=== PATIENT | female | born 1930 | race Caucasian/White ===

== ENCOUNTER 2016-07-01 15:05 | Emergency (ER) | payer BC ==
[~2016-07-01] VITALS: Ht 165.1 cm; Wt 78.0 kg
[~2016-07-01 15:05] MED LIST: CALC500C70 PO; CHOL2000 PO; GLUCTAB7 PO; METO25TA3 PO; PRVC/40 PO; RIVA1.5T PO; TRIA0.1C20 TOP; TUMERIC PO
[2016-07-01 15:14] VITALS: TEMP 36.6; O2SAT 95; Ht 165.1 cm; Wt 78.0 kg
[2016-07-01] MEDS ORDERED: ONDANSETRON INJ 2 MG/ML 2 ML VIAL IV STA (15:43)
[2016-07-01] MEDS ORDERED: MoRPHine SULFATE 2 MG/ML CARP IV STA (15:43)
[2016-07-01] MEDS ORDERED: XYLOCAINE 1%/SOD BICARB 20 ML VIAL INFIL ONE (15:45)
[2016-07-01 15:52] LABS: BASO % 0.2 %; BASO ABS # 0.02 K/uL (0-0.2); COMPLETE YES; EOS % 1.6 %; HEMATOCRIT 36.9 % (37-47); IG% 0.6 %; LYMPH % 41.8 %; LYMPH ABS # 3.37 K/uL (1.2-3.4); MEAN CELL VOLUME 91.6 fL (80-100); MEAN CORPUSCULAR HEMOGLOBIN 30.8 pg (25-34); MEAN CORPUSCULAR HGB CONC 33.6 g/dl (32-36); MEAN PLATELET VOLUME 10.1 fL (7.4-10.4); MONO % 6.4 %; NEUT % 49.4 %; PLATELET COUNT 145 K/uL (130-400); RED BLOOD COUNT 4.03 M/uL (4.2-5.4); WHITE BLOOD COUNT 8.07 K/uL (4.8-10.8)
[2016-07-01 16:01] LABS: BUN/CREATININE RATIO 37.9 (10-20); CALCIUM 9.1 mg/dl (8.5-10.1); CREATININE 0.7 mg/dl (0.60-1.20); INR 1.1 (0.9-1.1); POTASSIUM 3.2 mmol/L (3.5-5.1); PROTHROMBIN TIME (PATIENT) 11.7 SECONDS (9.0-12.0)
[2016-07-01 16:11] LABS: THYROID STIMULATING HORMONE 3.31 uIu/ml (0.300-4.500)
[2016-07-01] MEDS ORDERED: METO50TA7 PO (16:22)
[2016-07-01] MEDS ORDERED: TURM500T PO (16:22)
[2016-07-01] MEDS ORDERED: LSX20 PO (16:22)
--- NOTE | 2016-07-01 16:43 | DIAGNOSTIC IMAGING REPORT ---
HEAD CT NONCONTRAST CT DOSE: HISTORY: Fall. Head injury. eval for bleed TECHNIQUE: Multiaxial CT images of the head were performed without the use of intravenous contrast. Automated exposure control was utilized for this study. Comparison: None. Findings: Small amount hemorrhage within the right maxillary sinus. There appears to be a right orbital floor fracture. The calvarium and skull base are intact. White matter hypodensity is nonspecific but suggestive of microvascular ischemic change. The ventricles and sulci demonstrate mild age-related involutional changes. There appears be a trace subdural hematoma within the right frontal parafalcine location. This is best seen on image 23 and 21. Impression: 1. Suspect a trace subdural hematoma within the right frontal parafalcine location. Follow-up head CT in 12 hours is recommended. 2. Right orbital floor fracture. Electronically signed by: Kevin Stevens M.D. 07/01/2016 4:41 PM Dictated Date/Time: 07/01/2016 4:37 PM
--- NOTE | 2016-07-01 16:47 | DIAGNOSTIC IMAGING REPORT ---
MAXILLOFACIAL CT CT DOSE: HISTORY: Fall. Right facial injury. eval for fx TECHNIQUE: Multiaxial CT images of the maxillofacial region were performed and reformatted in the coronal plane without the use of contrast. COMPARISON: Sinus CT 05/15/2007. FINDINGS: Mild right periorbital soft tissue swelling. Small of hemorrhage within the right maxillary sinus. There is a right orbital floor fracture which demonstrates 5 mm of inferior displacement. There is extraconal fat extending through the orbital floor defect. The extraocular muscles are normal in caliber. The globes and retrobulbar fat are intact. No additional fractures identified within the facial bones. IMPRESSION: Displaced right orbital floor fracture. Extraconal fat extends into the orbital floor defect. Clinical correlation recommended to assess for entrapment. Electronically signed by: Kevin Stevens M.D. 07/01/2016 4:45 PM Dictated Date/Time: 07/01/2016 4:41 PM
--- NOTE | 2016-07-01 16:48 | DIAGNOSTIC IMAGING REPORT ---
CT OF THE CERVICAL SPINE CLINICAL HISTORY: Neck pain status post trauma COMPARISON STUDY: No previous studies for comparison. CT DOSE: 1182.43 mGy.cm TECHNIQUE: CT scan of the cervical spine was performed from the skull base to the thoracic inlet. Images are reviewed in the axial, sagittal, and coronal planes. IV contrast was not administered for this examination. FINDINGS: The visualized portions of the lung apices reveal no evidence of pneumothorax. The prevertebral soft tissues are normal. No cervical spine fractures or subluxations are visualized. There is a right maxillary sinus air-fluid level. There is a right orbital floor fracture. There are multilevel degenerative changes IMPRESSION: 1. Right maxillary sinus air-fluid level. There is a right orbital floor fracture. 2. No evidence of acute cervical spine fracture or traumatic subluxation. Electronically signed by: Joseph Bennett M.D. 07/01/2016 4:46 PM Dictated Date/Time: 07/01/2016 4:42 PM
[2016-07-01] MEDS ORDERED: FENTANYL CITRATE INJ 50 MCG/1 ML 2 ML VIAL IV STA (17:35)
--- NOTE | 2016-07-01 17:37 | DIAGNOSTIC IMAGING REPORT ---
CHEST 1 VW FRONT-NOT PORTABLE HISTORY: FALL COMPARISON: None. FINDINGS: No pneumothorax. No pleural effusions. The heart is mildly enlarged. There are postoperative changes and an aortic valve prosthesis. There is diffuse interstitial thickening. Right anterior shoulder dislocation. IMPRESSION: 1. Right anterior shoulder dislocation. 2. Mild diffuse interstitial thickening and mild cardiomegaly. This favors mild interstitial pulmonary edema. Electronically signed by: Kevin Stevens M.D. 07/01/2016 5:35 PM Dictated Date/Time: 07/01/2016 5:34 PM
--- NOTE | 2016-07-01 17:39 | DIAGNOSTIC IMAGING REPORT ---
RIGHT HUMERUS MIN 2 VIEWS ROUTINE, RIGHT SHOULDER MIN 2 VIEWS ROUTINE CLINICAL HISTORY: Fall. Right shoulder and arm pain. COMPARISON STUDY: None. FINDINGS: Right anterior shoulder dislocation. No fractures identified. Slight deformity within the distal shaft of the right clavicle favors an old, healed fracture. No fractures within the right humerus. IMPRESSION: 1. Right anterior shoulder dislocation. No fractures. 2. Slight deformity within the distal shaft of the right clavicle favors an old, healed fracture. Electronically signed by: Kevin Stevens M.D. 07/01/2016 5:37 PM Dictated Date/Time: 07/01/2016 5:35 PM
[2016-07-01] MEDS ORDERED: FENTANYL CITRATE INJ 50 MCG/1 ML 2 ML VIAL ONE (17:41)
--- NOTE | 2016-07-01 17:41 | DIAGNOSTIC IMAGING REPORT ---
RIGHT ELBOW 3 VIEWS HISTORY: Right elbow pain. Fall. COMPARISON: None. FINDINGS: Displacement of the anterior and posterior humeral fat pads consistent with a joint effusion. No dislocation within the right elbow. There is suggestion of a subtle nondisplaced fracture within the radial head. No radiopaque foreign bodies. IMPRESSION: Right elbow effusion. There is suggestion of a subtle nondisplaced fracture at the radial head. This can be confirmed with follow up radiograph in 2 weeks. No dislocation. Electronically signed by: Kevin Stevens M.D. 07/01/2016 5:39 PM Dictated Date/Time: 07/01/2016 5:37 PM
--- NOTE | 2016-07-01 17:43 | DIAGNOSTIC IMAGING REPORT ---
PELVIS/UNILATERAL HIP 2-3VIEWS CLINICAL HISTORY: FALL. Left hip pain. COMPARISON STUDY: None. FINDINGS: No fracture or dislocation within the pelvis or hips. The sacrum appears intact. Large amount well-formed stool seen within the colon rectum. IMPRESSION: No fracture or dislocation within the pelvis or hips. Electronically signed by: Kevin Stevens M.D. 07/01/2016 5:41 PM Dictated Date/Time: 07/01/2016 5:39 PM
--- NOTE | 2016-07-01 18:04 | DIAGNOSTIC IMAGING REPORT ---
RIGHT SHOULDER 2 VIEWS HISTORY: post reduction right Right COMPARISON: Right shoulder 07/01/2016. FINDINGS: Status post reduction of the right shoulder dislocation. Alignment appears anatomic. Small cortical irregularity at the lateral humeral head likely represents a Hill-Sachs impaction fracture from the dislocation. Old, healed right clavicle fracture. No radiopaque foreign bodies. IMPRESSION: Status post reduction of the right shoulder dislocation. The alignment is anatomic. There is a small Hill-Sachs impaction fracture at the humeral head. Electronically signed by: Kevin Stevens M.D. 07/01/2016 6:02 PM Dictated Date/Time: 07/01/2016 6:01 PM
[2016-07-01 18:10] VITALS: BP 154/96; PULSE 85; O2SAT 100
--- NOTE | 2016-07-01 21:40 | EMERGENCY ROOM VISIT NOTE ---
History Report prepared by Cody: Sheryl Cruz Under the Supervision of: Dr. Willy Pacheco M.D. First contact with patient: 15:34 Chief Complaint: SYNCOPE Stated Complaint: FALL/ FACIAL ABRASIONS, RT ARM & SHOULDER PAIN Nursing Triage Summary: Pt to ED via ALS. Per report, [place] Pt fell and struck right side of face. Laceration to right lip noted. Pt presents in ccollar. Pt does not remember fall. Hx avr, takes xarelto. Reports pain to right shoulder and arm. Deformity noted to right shoulder. History of Present Illness The patient is a 86 year old female who presents to the Emergency Room with complaints of a sudden syncopal episode that occurred just prior to arrival. The patient came to the ED via ambulance. Per nursing staff notes, the patient had a [place] even [place] the mall and fell and hit the right side of her face. The patient does not remember how she felt prior to experiencing LOC. She is complaining of right shoulder and arm pain. She states that she feels "clammy." The patient denies facial pain, head pain, neck pain, chest pain, back pain, and hip pain. She is on Xarelto for atrial fibrillation, but she has not taken it yet today because she typically takes it around dinner time. Source of History: patient, nursing staff Onset: [employer] Position: other (global) Quality: other (syncopal episode) Timing: other (sudden) Associated Symptoms: No back pain, No chest pain, No neck pain Note: right shoulder pain, "clammy", no facial pain, no head pain, no hip pain Review of Systems See HPI for pertinent positives & negatives. A total of 10 systems reviewed and were otherwise negative. Past Medical & Surgical Medical Problems: (1) Heart disease (2) Shingles Surgical Problems: (1) Aortic valve replaced Family History Noncontributory secondary to age Social History Smoking Status: Former Smoker Marital Status: Occupation Status: retired Current/Historical Medications Scheduled Calcium/Vitamin D (Os-Abbe 500 Plus D), 1 TAB PO DAILY Cholecalciferol (Vitamin D3), 1 CAP PO DAILY Furosemide (Furosemide), 20 MG PO DAILY Metoprolol Succ (Toprol Xl) (Toprol-Xl), 75 MG PO DAILY Pravastatin Sod (Pravastatin Sodium), 40 MG PO QPM Rivaroxaban (Xarelto), 15 MG PO QPM Scheduled PRN Turmeric (Curcuma Longa) (Turmeric), 1 TAB PO DAILY PRN for Pain or Fever Allergies Coded Allergies: Penicillins (Unverified Allergy, Severe, THROAT SWELLS AND RASH, 08/22/15) Budesonide (Unverified Allergy, Unknown, UNKNOWN, 08/22/15) Moxifloxacin (Unverified Allergy, Unknown, UNKNOWN, 08/22/15) Physical Exam Vital Signs Date Time Temp Pulse Resp B/P Pulse Ox O2 Delivery O2 Flow Rate FiO2 07/01/16 18:10 85 20 154/96 100 07/01/16 18:10 77 20 154/86 100 Room Air 07/01/16 17:35 84 29 07/01/16 16:58 81 18 143/85 100 Room Air 07/01/16 16:54 143/85 07/01/16 15:35 79 21 95 07/01/16 15:20 90 07/01/16 15:14 36.6 94 14 147/102 94 Room Air 07/01/16 15:14 95 Room Air 07/01/16 15:12 147/102 Physical Exam Constitutional: Vital signs reviewed. Eyes: Pupils are equal round reactive to light. Conjunctiva are noninjected. ENT: Pharynx is clear without erythema or exudate. Mucous membranes are moist. Neck is in a rigid cervical collar without midline tenderness. 3 cm laceration to the inner lower lip. Respiratory: Clear to auscultation bilaterally. Breath sounds are equal bilaterally. Cardiovascular: Irregularly irregular rhythm. Normal rate. GI: Soft, nondistended and nontender. Bowel sounds are present. Musculoskeletal: Bilateral lower extremity pitting edema. No tenderness to the hips or lower extremities on palpation. Tenderness and deformity to the right shoulder and upper humerus. Integumentary: No cyanosis. Neurological: The patient is awake and alert. No focal deficits. Sensation is intact throughout the extremities. Difficult to assess motor strength the right upper arm secondary to pain. Psychiatric: Normal affect. Medical Decision & Procedures ER Provider Diagnostic Interpretation: Radiology results as stated below per my review and the radiologist's interpretation: RIGHT HUMERUS MIN 2 VIEWS ROUTINE, RIGHT SHOULDER MIN 2 VIEWS ROUTINE IMPRESSION: 1. Right anterior shoulder dislocation. No fractures. 2. Slight deformity within the distal shaft of the right clavicle favors an old, healed fracture. Electronically signed by: Kevin Stevens M.D. 07/01/2016 5:37 PM Dictated Date/Time: 07/01/2016 5:35 PM RIGHT ELBOW 3 VIEWS IMPRESSION: Right elbow effusion. There is suggestion of a subtle nondisplaced fracture at the radial head. This can be confirmed with follow up radiograph in 2 weeks. No dislocation. Electronically signed by: Kevin Stevens M.D. 07/01/2016 5:39 PM Dictated Date/Time: 07/01/2016 5:37 PM CHEST 1 VW FRONT-NOT PORTABLE IMPRESSION: 1. Right anterior shoulder dislocation. 2. Mild diffuse interstitial thickening and mild cardiomegaly. This favors mild interstitial pulmonary edema. Electronically signed by: Kevin Stevens M.D. 07/01/2016 5:35 PM Dictated Date/Time: 07/01/2016 5:34 PM PELVIS/UNILATERAL HIP 2-3VIEWS IMPRESSION: No fracture or dislocation within the pelvis or hips. Electronically signed by: Kevin Stevens M.D. 07/01/2016 5:41 PM Dictated Date/Time: 07/01/2016 5:39 PM RIGHT SHOULDER 2 VIEWS IMPRESSION: Status post reduction of the right shoulder dislocation. The alignment is anatomic. There is a small Hill-Sachs impaction fracture at the humeral head. Electronically signed by: Kevin Stevens M.D. 07/01/2016 6:02 PM Dictated Date/Time: 07/01/2016 6:[address] NONCONTRAST Impression: 1. Suspect a trace subdural hematoma within the right frontal parafalcine location. Follow-up head CT in 12 hours is recommended. 2. Right orbital floor fracture. Electronically signed by: Kevin Stevens M.D. 07/01/2016 4:41 PM Dictated Date/Time: 07/01/2016 4:[address] IMPRESSION: Displaced right orbital floor fracture. Extraconal fat extends into the orbital floor defect. Clinical correlation recommended to assess for entrapment. Electronically signed by: Kevin Stevens M.D. 07/01/2016 4:45 PM Dictated Date/Time: 07/01/2016 4:[address] OF THE CERVICAL SPINE IMPRESSION: 1. Right maxillary sinus air-fluid level. There is a right orbital floor fracture. 2. No evidence of acute cervical spine fracture or traumatic subluxation. Electronically signed by: Joseph Bennett M.D. 07/01/2016 4:46 PM Dictated Date/Time: 07/01/2016 4:42 PM Laboratory Results 07/01/16 15:20 Red Blood Count 4.03, Mean Corpuscular Volume 91.6, Mean Corpuscular Hemoglobin 30.8, Mean Corpuscular Hemoglobin Concent 33.6, Mean Platelet Volume 10.1, Neutrophils (%) (Auto) 49.4, Lymphocytes (%) (Auto) 41.8, Monocytes (%) (Auto) 6.4, Eosinophils (%) (Auto) 1.6, Basophils (%) (Auto) 0.2, Neutrophils # (Auto) 3.98, Lymphocytes # (Auto) 3.37, Monocytes # (Auto) 0.52, Eosinophils # (Auto) 0.13, Basophils # (Auto) 0.02 07/01/16 15:20 Test 07/01/16 15:20 White Blood Count 8.07 K/uL (4.8-10.8) Red Blood Count 4.03 M/uL (4.2-5.4) Hemoglobin 12.4 g/dL (12.0-16.0) Hematocrit 36.9 % (37-47) Mean Corpuscular Volume 91.6 fL (80-100) Mean Corpuscular Hemoglobin 30.8 pg (25-34) Mean Corpuscular Hemoglobin Concent 33.6 g/dl (32-36) Platelet Count 145 K/uL (130-400) Mean Platelet Volume 10.1 fL (7.4-10.4) Neutrophils (%) (Auto) 49.4 % Lymphocytes (%) (Auto) 41.8 % Monocytes (%) (Auto) 6.4 % Eosinophils (%) (Auto) 1.6 % Basophils (%) (Auto) 0.2 % Neutrophils # (Auto) 3.98 K/uL (1.4-6.5) Lymphocytes # (Auto) 3.37 K/uL (1.2-3.4) Monocytes # (Auto) 0.52 K/uL (0.11-0.59) Eosinophils # (Auto) 0.13 K/uL (0-0.5) Basophils # (Auto) 0.02 K/uL (0-0.2) RDW Standard Deviation 47.9 fL (36.4-46.3) RDW Coefficient of Variation 14.2 % (11.5-14.5) Immature Granulocyte % (Auto) 0.6 % Immature Granulocyte # (Auto) 0.05 K/uL (0.00-0.02) Prothrombin Time 11.7 SECONDS (9.0-12.0) Prothromb Time International Ratio 1.1 (0.9-1.1) Activated Partial Thromboplast Time 26.3 SECONDS (21.0-31.0) Partial Thromboplastin Ratio 1.0 Anion Gap 11.0 mmol/L (3-11) Est Creatinine Clear Calc Drug Dose 59.6 ml/min Estimated GFR () 90.9 Estimated GFR (Non- 78.5 BUN/Creatinine Ratio 37.9 (10-20) Calcium Level 9.1 mg/dl (8.5-10.1) Troponin I 0.016 ng/ml (0-0.045) Thyroid Stimulating Hormone (TSH) 3.310 uIu/ml (0.300-4.500) Free Thyroxine 1.19 ng/dl (0.80-1.60) Laboratory results as reviewed by me. Medications Administered Medications (Trade) Dose Ordered Sig/Rhonda Route Start Time Stop Time Status Last Admin Dose Admin Morphine Sulfate (MoRPHine SULFATE INJ) 2 mg NOW STAT IV 07/01/16 15:43 07/01/16 15:46 DC 07/01/16 16:00 2 MG Ondansetron HCl (Zofran Inj) 4 mg NOW STAT IV 07/01/16 15:43 07/01/16 15:46 DC 07/01/16 16:00 4 MG Fentanyl Citrate (Fentanyl Inj) 25 mcg NOW STAT IV 07/01/16 17:35 07/01/16 17:36 DC 07/01/16 17:41 25 MCG Procedure Anterior Shoulder Dislocation Reduction Indication: Right shoulder dislocation. Verbal consent obtained. Risks and benefits were explained with the usual customary discussion. A time out was taken. Neurovascular examination before the procedure revealed numbness over the proximal humerus. The right shoulder glenohumeral dislocation was reduced by placing the patient supine and applying gentle upward inline traction on the humerus while scapula manipulation was applied. This resulted in an easy reduction without complication. Neurovascular examination after the procedure showed no deficits. The patient had significant pain relief and tolerated the procedure well. She was placed in a sling. ECG Indication: syncope Rate (beats per minute): 91 Rhythm: atrial fibrillation Findings: no acute ischemic change, other (QRS 92 ms) ED Course 1537: The patient was evaluated in room A3. A complete history and physical exam was performed. 1543: Ordered Ondansetron HCl 4 mg IV, Morphine Sulfate 2 mg IV 1657: I reassessed and reexamined the patient. She has no entrapment or double vision with upward gaze. Her blood pressure is 143/80. I discussed test results with the patient and her son. They prefer to be transferred to [facility]. The patient is going to x-ray now. 1709: I spoke with Dr. Saba of Trauma Surgery at [facility]. We discussed the patient and her results. He accepted the patient and she will be transferred there for further management. 1714: I updated the patient's son. He informed me that the patient's aortic valve replacement is an animal valve. He also informed me that he is unsure of the patient's resuscitation status. The patient is still at x-ray. 1735: Ordered Fentanyl Citrate 25 mcg IV 1737: I reassessed and updated the patient. I performed a shoulder reduction at this time. Refer to the procedure note above for further details. 1758: I reevaluated the patient. Medical Decision This is an 86-year-old female presents with syncope and injuries from a fall. Differential diagnosis includes metabolic derangement, cardiac, dysrhythmia, intracranial hemorrhage, facial fracture, shoulder dislocation, humeral fracture. I did perform a limited focused review of portions of the patient's old chart on the electronic medical record. The patient has had no recent pertinent visits to this hospital. I did evaluate the patient as noted above. This is a 86-year-old female on Xarelto who presents with a syncopal episode with obvious head injury and shoulder injury. IV access was established. The patient was treated with morphine and Zofran IV. The patient was placed on a continuous sand drier. I did order a CT of the head, cervical spine and facial bones. I did review the images myself as well as the radiology report as described above. She has a very small subdural hematoma without mass effect. She also has an orbital fracture on the right side. No cervical fracture is noted. I did remove the patient's cervical collar. She was able to move her neck without pain or difficulty. She has no entrapment of her extraocular movements. I did discuss the test results with the patient and her son. She agreed to transfer to a [facility]. I did talk to Dr. Saba of surgery who accepted patient for transfer. I did order and personally review the patient's 12-lead EKG and x- rays as described above. She does have a right shoulder dislocation and effusion to the right elbow. I did perform dislocation reduction as described above. Post reduction x-ray showed good alignment. I did give her a arm sling. I did treat her with fentanyl 25 mg IV. I did order and review the patient's blood work as noted in the electronic medical record. She has mild hypokalemia. The ambulance arrived for transportation before I was able to repair the lip laceration. I did not wish to delay her transfer and so she was sent to you [facility] for further care. Consults Time Called: 1700 Consulting Physician: Dr. Saba - Trauma Surgery at [facility] Returned Call: [address] Saba of Trauma Surgery at [facility]. We discussed the patient and her results. He accepted the patient and she will be transferred there for further management. Impression Primary Impression: Intracranial hemorrhage Additional Impressions: Syncope Right orbital fracture Hypokalemia Dislocation of shoulder, right, closed Effusion of right elbow Lip laceration Scribe Attestation The scribe's documentation has been prepared under my direct and personally reviewed by me in its entirety. I confirm that the note above accurately reflects all work, treatment, procedures, and medical decision making performed by me. Departure Information Dispostion Transfer Acute Care Facility ([facility]) Referrals Virginia Spivey M.D. (PCP) Patient Instructions My [facility] Problem Qualifiers Additional Impressions: Syncope Syncope type: unspecified Qualified Codes: R55 - Syncope and collapse Right orbital fracture Encounter type: initial encounter Fracture type: closed Qualified Codes: S02.81XA - Fracture of other specified skull and facial bones, right side, initial encounter for closed fracture Dislocation of shoulder, right, closed Encounter type: initial encounter Qualified Codes: S43.004A - Unspecified dislocation of right shoulder joint, initial encounter Lip laceration Encounter type: initial encounter Qualified Codes: S01.511A - Laceration without foreign body of lip, initial encounter
== END 2016-07-01 18:20 | disposition short-term general hospital (02) ==
LOC: EDBD 15:05 → C.EDA 15:06
DX: S06.309A Unspecified focal traumatic brain injury with loss of consciousness of unspecified duration, initial encounter (principal); S02.19XA Other fracture of base of skull, initial encounter for closed fracture; S43.006A Unspecified dislocation of unspecified shoulder joint, initial encounter; S42.301A Unspecified fracture of shaft of humerus, right arm, initial encounter for closed fracture; S01.511A Laceration without foreign body of lip, initial encounter; W19.XXXA Unspecified fall, initial encounter; M25.421 Effusion, right elbow; I48.91 Unspecified atrial fibrillation; I51.9 Heart disease, unspecified; I35.8 Other nonrheumatic aortic valve disorders; Z87.891 Personal history of nicotine dependence; Z79.899 Other long term (current) drug therapy; Z88.0 Allergy status to penicillin; Z88.8 Allergy status to other drugs, medicaments and biological substances

== ENCOUNTER → 2017-01-16 | Outpatient (CLI) | payer BC ==
[~2017-01-16] MED LIST changes: -GLUCTAB7 PO; +LSX20 PO; -METO25TA3 PO; +METO50TA7 PO; -TRIA0.1C20 TOP; -TUMERIC PO; +TURM500T PO
--- NOTE | 2017-01-16 15:50 | DIAGNOSTIC IMAGING REPORT ---
CHEST 2 VIEWS ROUTINE CLINICAL HISTORY: Persistent cough. Productive. Fatigue. COMPARISON STUDY: 07/01/2016 FINDINGS: The heart is mildly enlarged. There are postsurgical changes of a midline sternotomy. There is persistent mild interstitial thickening/edema. There are trace bilateral pleural effusions. There is no focal pulmonary consolidation.[ IMPRESSION: Cardiomegaly with stable mild interstitial thickening/edema with associated trace pleural effusions. No evidence of focal pulmonary consolidation. Electronically signed by: Joseph Bennett M.D. 01/16/2017 3:48 PM Dictated Date/Time: 01/16/2017 3:47 PM
== END | disposition home or self-care (01) ==
LOC: C.RAD1850 15:29
PROVIDERS: ATTEND Family Medicine
DX: R05 Cough (principal)

== ENCOUNTER → 2017-03-30 | Outpatient (CLI) | payer BC ==
[~2017-03-30] MED LIST changes: -METO50TA7 PO; +METO50TA8 PO
[2017-03-30 08:36] LABS: HEMATOCRIT 35.4 % (37-47); HEMOGLOBIN 11.6 g/dL (12.0-16.0); MEAN CELL VOLUME 95.7 fL (80-100); MEAN CORPUSCULAR HEMOGLOBIN 31.4 pg (25-34); MEAN CORPUSCULAR HGB CONC 32.8 g/dl (32-36); MEAN PLATELET VOLUME 9.9 fL (7.4-10.4); PLATELET COUNT 146 K/uL (130-400); RED CELL DISTRIBUTION WIDTH CV 14.1 % (11.5-14.5); RED CELL DISTRIBUTION WIDTH SD 48.7 fL (36.4-46.3); WHITE BLOOD COUNT 4.24 K/uL (4.8-10.8)
[2017-03-30 10:26] LABS: BLOOD UREA NITROGEN 19 mg/dl (7-18); CALCIUM 8.8 mg/dl (8.5-10.1); CARBON DIOXIDE 26 mmol/L (21-32); CREATININE 0.59 mg/dl (0.60-1.20); GLUCOSE 88 mg/dl (70-99); POTASSIUM 3.8 mmol/L (3.5-5.1); SODIUM 138 mmol/L (136-145)
== END | disposition home or self-care (01) ==
LOC: C.LABWYN 08:19
PROVIDERS: ATTEND Internal Medicine
DX: I10 Essential (primary) hypertension (principal); E78.00 Pure hypercholesterolemia, unspecified; F32.9 Major depressive disorder, single episode, unspecified; I48.91 Unspecified atrial fibrillation

== ENCOUNTER → 2017-06-01 | Outpatient (CLI) | payer BC ==
[2017-06-01 10:12] LABS: BLOOD UREA NITROGEN 19 mg/dl (7-18); CALCIUM 8.9 mg/dl (8.5-10.1); CARBON DIOXIDE 29 mmol/L (21-32); CREATININE 0.74 mg/dl (0.60-1.20); GLUCOSE 87 mg/dl (70-99); POTASSIUM 3.6 mmol/L (3.5-5.1); SODIUM 137 mmol/L (136-145)
== END | disposition home or self-care (01) ==
LOC: C.LABWYN 08:52
PROVIDERS: ATTEND Internal Medicine Cardiovascular Disease
DX: I10 Essential (primary) hypertension (principal); E78.00 Pure hypercholesterolemia, unspecified; F32.9 Major depressive disorder, single episode, unspecified; I48.91 Unspecified atrial fibrillation

== ENCOUNTER 2018-05-10 09:30 | Inpatient (IN) ==
[2018-05-10] MEDS ORDERED: SODIUM CHLORIDE 0.9% 500 ML IV SCH (10:00)
--- NOTE | 2018-05-10 10:12 | XRay Report ---
SINGLE VIEW CHEST CLINICAL HISTORY: Dyspnea. FINDINGS: An AP, portable, upright chest radiograph is compared to study dated 07/01/2016. The patient is status post midline sternotomy. The heart is enlarged and there is atherosclerotic calcification o f the thoracic aorta. There is pulmonary vascular congestion. Small pleural effusions are identified and there are bibasilar airspace opacities. No pneumothorax is seen. The skeletal structures are oste openic. The bony thorax is grossly intact. IMPRESSION: 1. Cardiomegaly with evidence of congestive failure. 2. Trace pleural effusions. 3. Bibasilar airspace opacities likely represent atelectasis. Correlate clinically for evidence of a superimposed infectious/inflammatory pneumonitis. Electronically signed by: James Olson M.D. 05/10/2018 10:11 AM
[2018-05-10 10:46] LABS: Basophils # (auto) 0.01 K/uL (0-0.2); Basophils % (auto) 0.1 %; Eosinophils # (auto) 0.06 K/uL (0-0.5); Eosinophils % (auto) 0.7 %; Hemoglobin 13.6 g/dL (12.0-16.0); Immature Granulocytes # (auto) 0.09 K/uL (0.00-0.02); Immature Granulocytes % (auto) 1.1 %; Lymphocytes # (auto) 1.19 K/uL (1.2-3.4); Lymphocytes % (auto) 14.4 %; Mean Corpuscular Volume 93.5 fL (80-100); Mean Platelet Volume 9.7 fL (7.4-10.4); Monocytes # (auto) 0.69 K/uL (0.11-0.59); Monocytes % (auto) 8.3 %; Neutrophils # (auto) 6.23 K/uL (1.4-6.5); Neutrophils % (auto) 75.4 %; Platelet Count 148 K/uL (130-400); RDW Coefficient of Variation 14.7 % (11.5-14.5); RDW Standard Deviation 49.6 fL (36.4-46.3); Red Blood Count 4.28 M/uL (4.2-5.4); White Blood Count 8.27 K/uL (4.8-10.8)
[2018-05-10 11:07] LABS: Alanine Aminotransferase 15 U/L (12-78); Albumin Level 3.2 gm/dl (3.4-5.0); Aspartate Aminotransferase 18 U/L (15-37); BUN Creatinine Ratio 20.6 (10-20); Blood Urea Nitrogen 12 mg/dl (7-18); Calcium 8.6 mg/dl (8.5-10.1); Carbon Dioxide 25 mmol/L (21-32); Chloride 102 mmol/L (98-107); Creatinine Clr Calc Pharmacy 68.5 ml/min; Est GFR (African American) 93.8; Est GFR (Non-African American) 80.9; Glucose 112 mg/dl (70-99); Potassium 2.9 mmol/L (3.5-5.1); Sodium 135 mmol/L (136-145)
[2018-05-10 11:11] LABS: INR 1.2 (0.9-1.1); Partial Thromboplastin Ratio 1.1; Partial Thromboplastin Time 28.2 Seconds (21.0-31.0); Prothrombin Time 12.1 Seconds (9.0-12.0)
[2018-05-10 11:12] LABS: Albumin Globulin Ratio 0.7 (0.9-2); Alkaline Phosphatase 115 U/L (45-117); Bilirubin,Total 1.2 mg/dl (0.2-1); Globulin 4.3 gm/dl (2.5-4.0); Total Protein 7.5 gm/dl (6.4-8.2); Troponin I < 0.015 ng/ml (0-0.045)
[2018-05-10 11:29] LABS: Influenza A virus by PCR Neg for Influ A (Neg); Influenza B virus by PCR Neg for Influ B (Neg)
[2018-05-10 12:52] LABS: Appearance Urine Clear (Clear); Bacteria Urine Automated Negative (Negative); Bilirubin Urine Negative (Negative); Blood Urine Negative (Negative); Color Urine Yellow; Glucose Urine UA Negative (Negative); Ketones Urine 1+ (Negative); Leukocyte Esterase Urine Negative (Negative); Nitrite Urine Negative (Negative); Protein Urine Trace (Negative); RBC Urine Automated 0-4 /hpf (0-4); Specific Gravity Urine 1.017 (1.000-1.030); Urobilinogen Urine Negative (Negative)
[2018-05-10] MEDS ORDERED: OPTIRAY 320 125ml IV PRN (13:04)
--- NOTE | 2018-05-10 13:30 | CT Scan Report ---
CT ANGIOGRAPHY OF THE CHEST, PULMONARY EMBOLUS PROTOCOL CLINICAL HISTORY: Pain. Elevated d-dimer. COMPARISON STUDY: Chest radiograph July 01, 2016 and May 10, 2018. TECHNIQUE: Following IV administration of Optiray-320, helical axial images of the chest were obtaine d utilizing the pulmonary embolus protocol. Maximal intensity projections and sagittal and coronal r eformats were viewed on an independent 3D workstation. IV contrast was administered without complica tion. Automated exposure control was utilized for the study. A dose lowering technique was utilized adhering to the principles of ALARA. CT DOSE: 605.44 mGy.cm FINDINGS: No pulmonary emboli are identified although the segmental and subsegmental pulmonary arter ies within the lower lobes are suboptimally assessed due to respiratory motion. There is moderate car diomegaly. There are median sternotomy wires. Ascending aorta is dilated, measuring 4.4 cm at the lev el of the main pulmonary artery. Moderate right and small left pleural effusions have increased since exam of May 06, 2018. Associated opacities reflect atelectasis. Lungs are suboptimally assessed and rest joint motion. There is moderate pulmonary edema. Mildly enlarged mediastinal and bilateral hilar lymph nodes are noted. Index precarinal lymph node measures 1.6 cm in short axis diameter. A mo derate L1 compression fracture with 3 mm of retropulsion is again noted. Paravertebral infiltration/h emorrhage has increased since exam of May 06, 2018. Vertebral body height loss has slightly incr eased. IMPRESSION: 1. No pulmonary emboli identified although segmental and subsegmental pulmonary arteries within the l ower lobes suboptimally assessed given respiratory motion. 2. Moderate pulmonary edema. Moderate right and small left pleural effusions which have increased sin ce CT of May 06, 2018. 3. Moderate cardiomegaly with significant dilatation of the right heart chambers and the IVC and hepa tic veins with reflux of contrast which suggests right heart dysfunction. 4. Mild dilatation of the ascending aorta, measuring 4.4 cm at the level the main pulmonary artery. 5. Acute moderate L1 compression fracture with 3 mm of retropulsion. Increase in paravertebral infilt ration/hemorrhage since CT of May 06, 2018. Electronically signed by: Andre Barrett M.D. 05/10/2018 1:28 PM
[2018-05-10] MEDS ORDERED: ONDANSETRON INJ 2 MG/ML 2 ML VIAL IV STA (13:40)
[2018-05-10] MEDS ORDERED: FUROSEMIDE 40 MG/4 ML VIAL IV STA (13:42)
[2018-05-10] MEDS ORDERED: POTASSIUM CHLORIDE 10 MEQ TABCR PO STA (13:42)
--- NOTE | 2018-05-10 15:45 | History & Physical Report ---
Date of Service May 10, 2018 Assessment & Plan (1) CHF (congestive heart failure): Pt received dose of IV lasix 40 mg in ED - re-evaluate for additional Lasix tomorrow - Check ECHO - Consult cardiology - typically follows with Dr. Navarro (was to see 05/25) - Monitor on telemetry - frequent PVCs in ED but noted to be hypokalemic. Check mag. Potassium being repleted - Aguilar catheter placed due to limited mobility, need to monitor I's and O's - Repeat CXR in AM (2) Pleural effusion: - IV lasix given in ED - repeat CXR in AM (3) Hypoxia: Suspect due to CHF/pleural effusions as well as limited inspiratory effort due to pain - Supplemental O2 for now - wean as tolerate - Incentive spirometry (4) Compression fracture of L1 vertebra: - Pain control - ATC acetaminophen, low-dose Baclofen, low-dose PRN morphine (watch for sedation) - if unable to control pain may consider pain management evaluation - PT/OT consults placed (5) Hypokalemia: Given potassium in ED - recheck this evening, check mag level (6) Atrial fibrillation: Pt unsure how long she has had this but states it is a chronic issue. History of ICH and frequent falls - suspect this is why not on anticoagulation. - Continue home meds (Toprol and diltiazem) (7) Essential hypertension: - Continue home meds and monitor - suspect elevated in ED due to pain (8) Depression: - Continue home sertraline - appears stable at present (9) Dyslipidemia: - Continue home statin therapy Plan: Plan - Marianela Vieira PA-C: Patient reviewed with collaborating physician, Dr. Shetty. Plan of care discussed and as outlined above. Extensive conversation with son, Christian, about plan of care during this admission. All questions answered. Pt will be followed by Dr. Huff starting tomorrow. Rafael Vieira PA-C History of Present Illness Primary Care Provider: PCP: Dr. Allen at [facility], [place] 88 y/o female presents via EMS from [facility], [place] with worsening back pain, shortness of breath and cough. Pt was seen in ED on 05/06 due to acute onset of back pain with no known injury and found to have an acute L1 compression fracture then sent back to [facility]. Since then, she reports limited ambulation, spending her days in bed due to the severity of the pain. She reports pain with deep breathing so has not been taking deep breaths. Today , staff felt like she was more short of breath and her back pain was worse. They tried Tramadol for the pain with no relief. Due to pain control issue and shortness of breath with cough, she was sent to the ED for evaluation due to concern of pneumonia. In the ED, she was found to have elevated BNP, pulmonary vascular congestion and pleural effusions c/w CHF so referred for admission. At present, pt's main complaint is back pain and pain with taking a deep breath. She does note SOB with any exertion but feeling better with application of O2 in the ED. Denies fevers, chills, rhinorrhea, head congestion , sore throat, headache, dizziness. She has noted increased "skipped beats" over the past few days but denies chest pain or pressure. Notes occasional wheezing. She reports chronic issues with "fluid retention" but states this is no worse than usual. Her son, Christian, is at the bedside and assisted with the history. Over the past few days, she reports loss of appetite with associated nausea and occasional emesis. No diarrhea or constipation. Allergies Allergy/AdvReac Type Severity Reaction Status Date / Time Penicillins Allergy Severe THROAT Unverified 05/10/18 12:08 SWELLS AND RASH budesonide Allergy Unknown UNKNOWN Unverified 05/10/18 12:08 moxifloxacin Allergy Unknown UNKNOWN Unverified 05/10/18 12:08 Home Medications Home Medications Medication Instructions Recorded Confirmed Type acetaminophen [Tylenol Extra 500 mg PO Q4 PRN 05/06/18 05/10/18 History Strength] cholecalciferol (vitamin D3) 2,000 unit PO DAILY 05/06/18 05/10/18 History [Vitamin D3] diltiazem HCl 240 mg PO DAILY 05/06/18 05/10/18 History docusate sodium 100 mg PO DAILY PRN 05/06/18 05/10/18 History furosemide [Lasix] 20 mg PO WK 05/06/18 05/10/18 History furosemide [Lasix] 40 mg PO 4XWK 05/06/18 05/10/18 History guaifenesin [Siltussin SA] 10 ml PO QID PRN 05/06/18 05/10/18 History metoprolol succinate [Toprol XL] 75 mg PO DAILY 05/06/18 05/10/18 History pravastatin 40 mg PO HS 05/06/18 05/10/18 History sertraline 25 mg PO QAM 05/06/18 05/10/18 History tramadol 50 mg PO Q6H PRN 05/10/18 05/10/18 History Past Med/Surg History Medical History Compression fracture of L1 vertebra (Acute) Dislocation of shoulder, right, closed (Resolved) Effusion of right elbow (Resolved) Hypokalemia (Acute) Intracranial hemorrhage (Inactive) Lip laceration (Resolved) Right orbital fracture (Resolved) Syncope (Resolved) Atrial fibrillation (Chronic) Depression (Chronic) Dyslipidemia (Chronic) Essential hypertension (Chronic) Surgical History History of aortic valve replacement (Chronic) Family History Other Family history non-contributory Social History Current Living Situation: Personal Care Facility Other Information That Helps Us Care for You: No Feels Safe at Home: Yes Safety Concerns: Feels Safe At This Time Smoking Status: Former smoker Do You Dip or Chew Tobacco: No Smoking End Date: 1977 Second Hand Exposure: No Tobacco Cessation Education Requested by Patient: No Hx Alcohol Use: Yes Alcohol type: wine Alcohol Intake Frequency: holidays/ special occasions only Hx Substance Use: No Beliefs That Will Affect Care: None Preferred Language: Portuguese Communication Ability: Effective Quality Assurance Tester Required: No Review of Systems All systems reviewed & are unremarkable except as noted in HPI & below Constitutional: + fatigue and + anorexia; no fever and no chills Eyes: no diplopia, not seeing flashes, no spots in vision and no worsening vision Ear, Nose, Mouth, Throat: no ear pain, no nasal congestion, no nasal discharge, no sore throat and no dysphagia Respiratory: + cough, + dyspnea on exertion, + pain on inspiration and + wheezing (occasional); no hemoptysis Cardiovascular: + edema (chronic issues with intermittent pedal edema - no worse than usual); no chest pain, no paroxysmal nocturnal dyspnea, no lightheadedness, no syncope and no calf pain Gastrointestinal: + nausea (relates to pain) and + vomiting; no abdominal pain, no pain with swallowing, no dysphagia, no constipation and no diarrhea/loose stools Genitourinary (Female): + urinary frequency (relates to diuretics) and + urinary urgency (relates only to diuretics); no dysuria, no hematuria and no flank pain Musculoskeletal: + back pain; no neck pain, no radicular pain and no joint pain Integumentary: no rash and no non-healing lesions Neurologic: no paralysis, no loss of sensation, no tingling, no numbness, no paresthesia, no syncope and no headache(s) Psychiatric: + depression (chronic issue) Physical Exam 2 Vital Signs (Past 24 Hours): Last Vital Signs Temp 37.2 C 05/10/18 09:39 Pulse 82 05/10/18 15:00 Resp 22 05/10/18 15:00 BP 151/94 H 05/10/18 15:00 Pulse Ox 96 05/10/18 15:00 Constitutional: well developed, well nourished and cooperative; no acute distress Eyes: PERRL, conjunctivae normal, anicteric sclerae EOM intact bilaterally few beats of intention nystagmus bilaterally ENMT: external ear and nose normal, oropharynx normal Neck: trachea midline Respiratory: no respiratory distress, no labored breathing and does not use accessory muscles Auscultation: + diminished lung sounds (at bases bilaterally); no rhonchi and no wheezes Cardiovascular: Irregularly irregular without gallop or rub Gastrointestinal (Abdomen): Inspection/Auscultation: normal bowel sounds Percussion/Palpation: abdomen soft and + tympanic to percussion; abdomen nontender and no guarding Musculoskeletal: plantar flexion/dorsiflexion 5/5 bilaterally, hip flexion 3/ 5 bilaterally due to pain systems software manager strength 4/5 bilaterally Skin: no rashes, warm and dry Neurologic: sensation to light touch grossly intact bilateral hands and feet Results & Data Laboratory Results Laboratory Results - last 24 hr 05/10/18 05/10/18 05/10/18 10:30 10:30 10:30 WBC 8.27 RBC 4.28 Hgb 13.6 Hct 40.0 MCV 93.5 MCH 31.8 MCHC 34.0 RDW Std Deviation 49.6 H RDW Coeff of Smiley 14.7 H Plt Count 148 MPV 9.7 Immature Gran % (Auto) 1.1 Neut % (Auto) 75.4 Lymph % (Auto) 14.4 [place] % (Auto) 8.3 Eos % (Auto) 0.7 Baso % (Auto) 0.1 Immature Gran # (Auto) 0.09 H Neut # (Auto) 6.23 Lymph # (Auto) 1.19 L [place] # (Auto) 0.69 H Eos # (Auto) 0.06 Baso # (Auto) 0.01 PT 12.1 H INR 1.2 H APTT 28.2 PTT Ratio 1.1 D-Dimer 3360 H* Sodium 135 L Potassium 2.9 L Chloride 102 Carbon Dioxide 25 Anion Gap 8.0 BUN 12 Creatinine 0.61 Est Cr Clr Drug Dosing 68.5 Est GFR ( Amer) 93.8 Est GFR (Non-Af Amer) 80.9 BUN/Creatinine Ratio 20.6 H Glucose 112 H Calcium 8.6 Total Bilirubin 1.2 H AST 18 ALT 15 Alkaline Phosphatase 115 Troponin I < 0.015 NT-Pro-B Natriuret Pep Total Protein 7.5 Albumin 3.2 L Globulin 4.3 H Albumin/Globulin Ratio 0.7 L Urine Color Urine Appearance Urine pH Ur Specific [place] Urine Protein Urine Glucose (UA) Urine Ketones Urine Blood Urine Nitrite Urine Bilirubin Urine Urobilinogen Ur Leukocyte Esterase Urine WBC (Auto) Urine RBC (Auto) U Hyaline Cast (Auto) U Epithel Cells (Auto) Urine Bacteria (Auto) Influenza Type A (PCR) Influenza Type B (PCR) 05/10/18 05/10/18 05/10/18 10:30 10:42 11:53 WBC RBC Hgb Hct MCV MCH MCHC RDW Std Deviation RDW Coeff of Smiley Plt Count MPV Immature Gran % (Auto) Neut % (Auto) Lymph % (Auto) [place] % (Auto) Eos % (Auto) Baso % (Auto) Immature Gran # (Auto) Neut # (Auto) Lymph # (Auto) [place] # (Auto) Eos # (Auto) Baso # (Auto) PT INR APTT PTT Ratio D-Dimer Sodium Potassium Chloride Carbon Dioxide Anion Gap BUN Creatinine Est Cr Clr Drug Dosing Est GFR ( Amer) Est GFR (Non-Af Amer) BUN/Creatinine Ratio Glucose Calcium Total Bilirubin AST ALT Alkaline Phosphatase Troponin I NT-Pro-B Natriuret Pep 3539 H Total Protein Albumin Globulin Albumin/Globulin Ratio Urine Color Yellow Urine Appearance Clear Urine pH 7.0 Ur Specific [place] 1.017 Urine Protein Trace H Urine Glucose (UA) Negative Urine Ketones 1+ H Urine Blood Negative Urine Nitrite Negative Urine Bilirubin Negative Urine Urobilinogen Negative Ur Leukocyte Esterase Negative Urine WBC (Auto) 1-5 Urine RBC (Auto) 0-4 U Hyaline Cast (Auto) 1-5 U Epithel Cells (Auto) 10-20 H Urine Bacteria (Auto) Negative Influenza Type A (PCR) Neg for Influ A Influenza Type B (PCR) Neg for Influ B Diagnostic Findings Chest X-ray 05/10/18 - IMPRESSION: 1. Cardiomegaly with evidence of congestive failure. 2. Trace pleural effusions. 3. Bibasilar airspace opacities likely represent atelectasis. Correlate clinically for evidence of a superimposed infectious/inflammatory pneumonitis. Chest CTA 05/10/18 - IMPRESSION: 1. No pulmonary emboli identified although segmental and subsegmental pulmonary arteries within the lower lobes suboptimally assessed given respiratory motion. 2. Moderate pulmonary edema. Moderate right and small left pleural effusions which have increased since CT of May 06, 2018. 3. Moderate cardiomegaly with significant dilatation of the right heart chambers and the IVC and hepatic veins with reflux of contrast which suggests right heart dysfunction. 4. Mild dilatation of the ascending aorta, measuring 4.4 cm at the level the main pulmonary artery. 5. Acute moderate L1 compression fracture with 3 mm of retropulsion. Increase in paravertebral infiltration/hemorrhage since CT of May 06, 2018. Medications Administered Ioversol (Optiray 320 125ml) 120 ml IV ONCE PRN PRN Reason: Interaction Checking Stop: 05/14/18 13:03 Last Admin: 05/10/18 13:05 Dose: 120 ml Discontinued Medications Furosemide (Lasix) 40 mg IV NOW STA Stop: 05/10/18 13:43 Last Admin: 05/10/18 15:08 Dose: 40 mg Sodium Chloride (Nss) 500 mls @ 999 mls/hr IV .Q31M JULIET Stop: 05/10/18 10:30 Last Admin: 05/10/18 13:21 Dose: 999 mls/hr Ondansetron HCl (Zofran) 4 mg IV NOW STA Stop: 05/10/18 13:41 Last Admin: 05/10/18 13:45 Dose: 4 mg Potassium Chloride (Klor-Con M10) 40 meq PO NOW STA Stop: 05/10/18 13:43 Last Admin: 05/10/18 15:08 Dose: 40 meq Code Status & VTE Plan Code Status Discussed with patient and her son, Christian - she requests to be DNR. States that Christian has medical power of deputy prosecuting attorney VTE Prophylaxis Plan VTE Prophylaxis will be ordered: Yes Supervising Physician Co-Signing Physician Notes Pt was seen and examined. Agreed with Marianela SAPP exam, assessment and plan. 88 y/o female presents via EMS from [facility], [place] with worsening back pain, shortness of breath and cough. She was in the ED on 05/06 for acute onset of back pain where she had a CT done that showed acute L1 compression fracture and was discharged back to [facility]. Pt continues to have severe back pain, not helping with tramadol. Lately she was been having worsening SOB and was found to be hypoxia in the ER. CTA chest done in the ER showed no pulmonary emboli identified Moderate pulmonary edema. Moderate right and small left pleural effusions which have increased since. Received IV lasix in the ER. Will get an echo in am. Repeat CXR in am to follow up the pleural effusion. Continue pain control. She was supposed to follow with dr. Wilkerson as an outpatient. Will consult orthopedic. PT/OT and Fall precaution. MD Sena _ (1) Compression fracture of L1 vertebra Encounter type: initial encounter Fracture healing: Fracture type: open Qualified Code(s): S32.010B - Wedge compression fracture of first lumbar vertebra, initial encounter for open fracture (2) CHF (congestive heart failure) Heart failure chronicity: unspecified Heart failure type: unspecified Qualified Code(s): I50.9 - Heart failure, unspecified (3) Atrial fibrillation Atrial fibrillation type: unspecified Qualified Code(s): I48.91 - Unspecified atrial fibrillation (4) Depression Depression Type: unspecified Qualified Code(s): F32.9 - Major depressive disorder, single episode, unspecified
--- NOTE | 2018-05-10 16:06 | Emergency Department Note ---
Entered by James Sibley acting as a scribe for Misael Hampton DO History of Present Illness General Chief complaint: Back Injury/Pain Source: patient History of Present Illness Onset (ago): week(s) 1 Location: back (lower) Pain Consistency: + other (persistent and worsening) Quality: + other (worsening lower back pain) Exacerbated By: + movement Associated symptoms: no chest pain and no shortness of breath The patient is an 88 year old female who presents to the Emergency Room with complaints of persistent and worsening mid lower back pain beginning about one week ago. She states that her pain is exacerbated with movement. The patient reports that she was evaluated here five days ago for the same symptoms. She reports a productive cough for the past 2-3 weeks that she does not feel is worsening. She states that there were concerns for possible pneumonia at the custodial, but she did not receive a chest x-ray. She denies supplemental oxygen use and states that she quit smoking in 1977. She denies shortness of breath, chest pain, or history of blood clots. She denies new leg swelling but notes pain in her left leg when walking. She denies abdominal pain but notes occasional nausea when eating. She states that she has mostly stayed in bed for the past week. 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 Home Medications Home Medications Medication Instructions Recorded Confirmed Type acetaminophen [Tylenol Extra 500 mg PO Q4 PRN 05/06/18 05/10/18 History Strength] cholecalciferol (vitamin D3) 2,000 unit PO DAILY 05/06/18 05/10/18 History [Vitamin D3] diltiazem HCl 240 mg PO DAILY 05/06/18 05/10/18 History docusate sodium 100 mg PO DAILY PRN 05/06/18 05/10/18 History furosemide [Lasix] 20 mg PO WK 05/06/18 05/10/18 History furosemide [Lasix] 40 mg PO 4XWK 05/06/18 05/10/18 History guaifenesin [Siltussin SA] 10 ml PO QID PRN 05/06/18 05/10/18 History metoprolol succinate [Toprol XL] 75 mg PO DAILY 05/06/18 05/10/18 History pravastatin 40 mg PO HS 05/06/18 05/10/18 History sertraline 25 mg PO QAM 05/06/18 05/10/18 History tramadol 50 mg PO Q6H PRN 05/10/18 05/10/18 History Allergies Allergy/AdvReac Type Severity Reaction Status Date / Time Penicillins Allergy Severe THROAT Unverified 05/10/18 12:08 SWELLS AND RASH budesonide Allergy Unknown UNKNOWN Unverified 05/10/18 12:08 moxifloxacin Allergy Unknown UNKNOWN Unverified 05/10/18 12:08 Past Med/Surg History Medical History Compression fracture of L1 vertebra (Acute) Dislocation of shoulder, right, closed (Acute) Effusion of right elbow (Acute) Hypokalemia (Acute) Intracranial hemorrhage (Acute) Lip laceration (Acute) Right orbital fracture (Acute) Syncope (Acute) Family History Other Family history non-contributory Social History Current Living Situation: Personal Care Facility Other Information That Helps Us Care for You: No Feels Safe at Home: Yes Safety Concerns: Feels Safe At This Time Smoking Status: Former smoker Do You Dip or Chew Tobacco: No Smoking End Date: 1977 Second Hand Exposure: No Tobacco Cessation Education Requested by Patient: No Hx Alcohol Use: Yes Alcohol type: wine Alcohol Intake Frequency: holidays/ special occasions only Hx Substance Use: No Beliefs That Will Affect Care: None Preferred Language: Algerian Communication Ability: Effective Meat Inspector Required: No Review of Systems See HPI for pertinent positives & negatives. and A total of 10 systems reviewed and were otherwise negative Physical Exam Vital Signs Vital Signs - 24 hr 05/10/18 09:39 05/10/18 10:48 05/10/18 11:18 Temperature 37.2 C Temperature Source Oral Sepsis Recent Fever Within 48 Hours No Sepsis New/Unexplained Change in Mental Status No Sepsis Action Taken by Nursing No Action Required Pulse Rate 103 H Pulse Rate [Right Finger] 88 Pulse Rhythm [Right Finger] Regular Pulse Strength [Right Finger] Normal Respiratory Rate 18 22 Respiratory Effort / Characteristics Non-Labored Respiratory Depth Shallow Respiratory Pattern Regular Blood Pressure 177/102 H Blood Pressure [Right Arm] 145/92 H Blood Pressure Mean 127 Blood Pressure Mean [Right Arm] 109 Blood Pressure Position [Right Arm] Lying Pulse Oximetry 91 92 88 L Oxygen Delivery Method Room Air Room Air Room Air Oxygen Flow Rate 05/10/18 13:00 05/10/18 14:05 05/10/18 15:00 Temperature Temperature Source Sepsis Recent Fever Within 48 Hours Sepsis New/Unexplained Change in Mental Status Sepsis Action Taken by Nursing Pulse Rate Pulse Rate [Right Finger] 92 H 82 Pulse Rhythm [Right Finger] Irregular Irregular Pulse Strength [Right Finger] Normal Normal Respiratory Rate 20 22 Respiratory Effort / Characteristics Non-Labored Spontaneous Spontaneous SOB on Exertion Non-Labored Respiratory Depth Normal Normal Shallow Respiratory Pattern Regular Regular Regular Blood Pressure Blood Pressure [Right Arm] 164/92 H 151/94 H Blood Pressure Mean Blood Pressure Mean [Right Arm] 116 113 Blood Pressure Position [Right Arm] Sitting Lying Pulse Oximetry 96 96 Oxygen Delivery Method Room Air Room Air Nasal Cannula Oxygen Flow Rate 2 GENERAL: Lying in bed, disheveled, non-toxic, with dry cough EYE EXAM: normal conjunctiva. OROPHARYNX: no exudate, no erythema, lips, buccal mucosa, and tongue normal and mucous membranes are moist NECK: supple, no nuchal rigidity, no adenopathy, non-tender LUNGS: Diminished breath sounds to bilateral bases. Normal chest wall mechanics HEART: no murmurs, S1 normal and S2 normal ABDOMEN: abdomen soft, non-tender, normo-active bowel, sounds, no masses, no rebound or guarding. BACK: Back is symmetrical on inspection and there is no deformity, reproducible midline lumbar tenderness, no CVA tenderness, SKIN: no rashes and no bruising UPPER EXTREMITIES: upper extremities are grossly normal. LOWER EXTREMITIES: No pitting edema. Flexion/extension of hip, knee, ankle and EHL 5/5 bilaterally. NEURO EXAM: Normal sensorium, cranial nerves II-XII grossly intact, normal speech, no gross weakness of arms. Gross sensation intact. Course ED COURSE: Vital signs were reviewed and showed hypertension and tachycardia The patients medical record was reviewed The above diagnostic studies were performed and reviewed. ED treatments and interventions as stated above. 0953: The patient was evaluated in room C5. A complete history and physical examination was performed. 1002: Review of records shows that the patient was seen here and had a CT of the abdomen/pelvis that showed an L1 lumbar compression fracture. 1345: I updated the patient on current results. 1348: I consulted Lesia Vieira PA-C: [facility]. She will reevaluate the patient for hospitalization. Based on the patients age, coexisting illnesses, exam and lab findings the decision to treat as an inpatient was made. The patient remained stable while under my care. The patient will be evaluated for further management. Consultations Consultation #1: I consulted Lesia Vieira PA-C: [facility]ist. She will reevaluate the patient for hospitalization. Time: 13:48 Administered Medications Ioversol (Optiray 320 125ml) 120 ml IV ONCE PRN PRN Reason: Interaction Checking Stop: 05/14/18 13:03 Last Admin: 05/10/18 13:05 Dose: 120 ml Discontinued Medications Furosemide (Lasix) 40 mg IV NOW STA Stop: 05/10/18 13:43 Last Admin: 05/10/18 15:08 Dose: 40 mg Sodium Chloride (Nss) 500 mls @ 999 mls/hr IV .Q31M JULIET Stop: 05/10/18 10:30 Last Admin: 05/10/18 13:21 Dose: 999 mls/hr Ondansetron HCl (Zofran) 4 mg IV NOW STA Stop: 05/10/18 13:41 Last Admin: 05/10/18 13:45 Dose: 4 mg Potassium Chloride (Klor-Con M10) 40 meq PO NOW STA Stop: 05/10/18 13:43 Last Admin: 05/10/18 15:08 Dose: 40 meq Medical Decision Making Differential Diagnosis Differential diagnoses includes but is not limited to lumbar radiculopathy, muscle strain, fracture, cauda equina, mass, and disc herniation. Medical Records Attestation: I reviewed the patient's medical records. Home Medications Current Medication List: was personally reviewed by me Laboratory Data Attestation: I reviewed the patient's lab results. Result diagrams: 05/10/18 10:30 05/10/18 10:30 Lab Results 05/10/18 05/10/18 05/10/18 Range/Units 10:30 10:30 10:30 WBC 8.27 (4.8-10.8) K/uL RBC 4.28 (4.2-5.4) M/uL Hgb 13.6 (12.0-16.0) g/dL Hct 40.0 (37-47) % MCV 93.5 (80-100) fL MCH 31.8 (25-34) pg MCHC 34.0 (32-36) g/dL RDW Std Deviation 49.6 H (36.4-46.3) fL RDW Coeff of Smiley 14.7 H (11.5-14.5) % Plt Count 148 (130-400) K/uL MPV 9.7 (7.4-10.4) fL Immature Gran % (Auto) 1.1 % Neut % (Auto) 75.4 % Lymph % (Auto) 14.4 % [place] % (Auto) 8.3 % Eos % (Auto) 0.7 % Baso % (Auto) 0.1 % Immature Gran # (Auto) 0.09 H (0.00-0.02) K/uL Neut # (Auto) 6.23 (1.4-6.5) K/uL Lymph # (Auto) 1.19 L (1.2-3.4) K/uL [place] # (Auto) 0.69 H (0.11-0.59) K/uL Eos # (Auto) 0.06 (0-0.5) K/uL Baso # (Auto) 0.01 (0-0.2) K/uL PT 12.1 H (9.0-12.0) Seconds INR 1.2 H (0.9-1.1) APTT 28.2 (21.0-31.0) Seconds PTT Ratio 1.1 D-Dimer 3360 H* (0-500) ug/L FEU Sodium 135 L (136-145) mmol/L Potassium 2.9 L (3.5-5.1) mmol/L Chloride 102 (98-107) mmol/L Carbon Dioxide 25 (21-32) mmol/L Anion Gap 8.0 (3-11) BUN 12 (7-18) mg/dl Creatinine 0.61 (0.6-1.2) mg/dl Est Cr Clr Drug Dosing 68.5 ml/min Est GFR ( Amer) 93.8 Est GFR (Non-Af Amer) 80.9 BUN/Creatinine Ratio 20.6 H (10-20) Glucose 112 H (70-99) mg/dl Calcium 8.6 (8.5-10.1) mg/dl Total Bilirubin 1.2 H (0.2-1) mg/dl AST 18 (15-37) U/L ALT 15 (12-78) U/L Alkaline Phosphatase 115 (45-117) U/L Troponin I < 0.015 (0-0.045) ng/ml NT-Pro-B Natriuret Pep (0-1800) pg/ml Total Protein 7.5 (6.4-8.2) gm/dl Albumin 3.2 L (3.4-5.0) gm/dl Globulin 4.3 H (2.5-4.0) gm/dl Albumin/Globulin Ratio 0.7 L (0.9-2) Urine Color Urine Appearance (Clear) Urine pH (4.5-7.5) Ur Specific [place] (1.000-1.030) Urine Protein (Negative) Urine Glucose (UA) (Negative) Urine Ketones (Negative) Urine Blood (Negative) Urine Nitrite (Negative) Urine Bilirubin (Negative) Urine Urobilinogen (Negative) Ur Leukocyte Esterase (Negative) Urine WBC (Auto) (0-5) /hpf Urine RBC (Auto) (0-4) /hpf U Hyaline Cast (Auto) (0-5) /lpf U Epithel Cells (Auto) (0-5) /lpf Urine Bacteria (Auto) (Negative) Influenza Type A (PCR) (Neg) Influenza Type B (PCR) (Neg) 05/10/18 05/10/18 05/10/18 Range/Units 10:30 10:42 11:53 WBC (4.8-10.8) K/uL RBC (4.2-5.4) M/uL Hgb (12.0-16.0) g/dL Hct (37-47) % MCV (80-100) fL MCH (25-34) pg MCHC (32-36) g/dL RDW Std Deviation (36.4-46.3) fL RDW Coeff of Smiley (11.5-14.5) % Plt Count (130-400) K/uL MPV (7.4-10.4) fL Immature Gran % (Auto) % Neut % (Auto) % Lymph % (Auto) % [place] % (Auto) % Eos % (Auto) % Baso % (Auto) % Immature Gran # (Auto) (0.00-0.02) K/uL Neut # (Auto) (1.4-6.5) K/uL Lymph # (Auto) (1.2-3.4) K/uL [place] # (Auto) (0.11-0.59) K/uL Eos # (Auto) (0-0.5) K/uL Baso # (Auto) (0-0.2) K/uL PT (9.0-12.0) Seconds INR (0.9-1.1) APTT (21.0-31.0) Seconds PTT Ratio D-Dimer (0-500) ug/L FEU Sodium (136-145) mmol/L Potassium (3.5-5.1) mmol/L Chloride (98-107) mmol/L Carbon Dioxide (21-32) mmol/L Anion Gap (3-11) BUN (7-18) mg/dl Creatinine (0.6-1.2) mg/dl Est Cr Clr Drug Dosing ml/min Est GFR ( Amer) Est GFR (Non-Af Amer) BUN/Creatinine Ratio (10-20) Glucose (70-99) mg/dl Calcium (8.5-10.1) mg/dl Total Bilirubin (0.2-1) mg/dl AST (15-37) U/L ALT (12-78) U/L Alkaline Phosphatase (45-117) U/L Troponin I (0-0.045) ng/ml NT-Pro-B Natriuret Pep 3539 H (0-1800) pg/ml Total Protein (6.4-8.2) gm/dl Albumin (3.4-5.0) gm/dl Globulin (2.5-4.0) gm/dl Albumin/Globulin Ratio (0.9-2) Urine Color Yellow Urine Appearance Clear (Clear) Urine pH 7.0 (4.5-7.5) Ur Specific [place] 1.017 (1.000-1.030) Urine Protein Trace H (Negative) Urine Glucose (UA) Negative (Negative) Urine Ketones 1+ H (Negative) Urine Blood Negative (Negative) Urine Nitrite Negative (Negative) Urine Bilirubin Negative (Negative) Urine Urobilinogen Negative (Negative) Ur Leukocyte Esterase Negative (Negative) Urine WBC (Auto) 1-5 (0-5) /hpf Urine RBC (Auto) 0-4 (0-4) /hpf U Hyaline Cast (Auto) 1-5 (0-5) /lpf U Epithel Cells (Auto) 10-20 H (0-5) /lpf Urine Bacteria (Auto) Negative (Negative) Influenza Type A (PCR) Neg for Influ A (Neg) Influenza Type B (PCR) Neg for Influ B (Neg) Imaging Data Radiologist's Impression: Radiology results as stated below per my review and the radiologist's interpretation: CT ANGIOGRAPHY OF THE CHEST, PULMONARY EMBOLUS PROTOCOL CLINICAL HISTORY: Pain. Elevated d-dimer. COMPARISON STUDY: Chest radiograph July 01, 2016 and May 10, 2018. TECHNIQUE: Following IV administration of Optiray-320, helical axial images of the chest were obtained utilizing the pulmonary embolus protocol. Maximal intensity projections and sagittal and coronal reformats were viewed on an independent 3D workstation. IV contrast was administered without complication. Automated exposure control was utilized for the study. A dose lowering technique was utilized adhering to the principles of ALARA. CT DOSE: 605.44 mGy.cm FINDINGS: No pulmonary emboli are identified although the segmental and subsegmental pulmonary arteries within the lower lobes are suboptimally assessed due to respiratory motion. There is moderate cardiomegaly. There are median sternotomy wires. Ascending aorta is dilated, measuring 4.4 cm at the level of the main pulmonary artery. Moderate right and small left pleural effusions have increased since exam of May 06, 2018. Associated opacities reflect atelectasis. Lungs are suboptimally assessed and rest joint motion. There is moderate pulmonary edema. Mildly enlarged mediastinal and bilateral hilar lymph nodes are noted. Index precarinal lymph node measures 1.6 cm in short axis diameter. A moderate L1 compression fracture with 3 mm of retropulsion is again noted. Paravertebral infiltration/hemorrhage has increased since exam of May 06, 2018. Vertebral body height loss has slightly increased. IMPRESSION: 1. No pulmonary emboli identified although segmental and subsegmental pulmonary arteries within the lower lobes suboptimally assessed given respiratory motion. 2. Moderate pulmonary edema. Moderate right and small left pleural effusions which have increased since CT of May 06, 2018. 3. Moderate cardiomegaly with significant dilatation of the right heart chambers and the IVC and hepatic veins with reflux of contrast which suggests right heart dysfunction. 4. Mild dilatation of the ascending aorta, measuring 4.4 cm at the level the main pulmonary artery. 5. Acute moderate L1 compression fracture with 3 mm of retropulsion. Increase in paravertebral infiltration/hemorrhage since CT of May 06, 2018. Electronically signed by: Andre Barrett M.D. 05/10/2018 1:28 PM SINGLE VIEW CHEST CLINICAL HISTORY: Dyspnea. FINDINGS: An AP, portable, upright chest radiograph is compared to study dated . The patient is status post midline sternotomy. The heart is enlarged and there is atherosclerotic calcification of the thoracic aorta. There is pulmonary vascular congestion. Small pleural effusions are identified and there are bibasilar airspace opacities. No pneumothorax is seen. The skeletal structures are osteopenic. The bony thorax is grossly intact. IMPRESSION: 1. Cardiomegaly with evidence of congestive failure. 2. Trace pleural effusions. 3. Bibasilar airspace opacities likely represent atelectasis. Correlate clinically for evidence of a superimposed infectious/inflammatory pneumonitis. Electronically signed by: James Olson M.D. 05/10/2018 10:11 AM ECG Data Attestation: I personally reviewed and interpreted this ECG as follows: Indication: back/shoulder pain Rate (beats per minute): 96 Rhythm: atrial fibrillation Findings: + other (normal axis), + PVC and + Q waves (septal) Comparison ECG Date: from (05/06/18) Change: no significant change Blood Pressure Blood Pressure Findings: Elevated blood pressure Blood Pressure Disposition: further management by hospitalist FAVIAN Narrative Patient is an 88-year-old female who presents the ER for back pain and shortness of breath. Patient was seen here last week and found to have a L1 compression fracture. Upon arrival to the ER she is found to be hypoxic at 88- 90% on room air. Labs were obtained and showed no significant leukocytosis or anemia. INR was 1.2. BMP shows slightly low potassium at 2.9. LFTs were normal. BNP was elevated at 3500. UA is unremarkable. Chest x-ray suggest CHF. CT of the chest secondary to the elevated d-dimer and hypoxia confirms bilateral pleural effusions with CHF. Patient was given IV Lasix. She was updated bedside. She was on 2 L nasal cannula. Both patient and family were updated at bedside. Discussed case with the hospitalist patient was admitted for further workup of her CHF and bilateral effusions. Impression & Plan CHF (congestive heart failure), Pleural effusion, Hypoxia, Lumbar compression fracture Discharge Plan Visit Data Chief Complaint: Back Injury/Pain ED Provider: Misael Hampton Discharge Problem: CHF (congestive heart failure), Pleural effusion, Hypoxia, Lumbar compression fracture Patient Disposition: Being Evaluated by Hospitalist Forms Stand Alone Forms: My [facility] Prescriptions Prescriptions: No Action furosemide [Lasix] 40 mg Tablet 40 mg PO 4XWK RF: 0 pravastatin 40 mg Tablet 40 mg PO HS RF: 0 diltiazem HCl 240 mg Capsule,Extended Release 24 Hr 240 mg PO DAILY RF: 0 acetaminophen [Tylenol Extra Strength] 500 mg Tablet 500 mg PO Q4 PRN (Reason: mild pain/fever) RF: 0 guaifenesin [Siltussin SA] 100 mg/5 mL Liquid 10 ml PO QID PRN (Reason: Congestion) RF: 0 docusate sodium 100 mg Capsule 100 mg PO DAILY PRN (Reason: constipation) RF: 0 sertraline 25 mg Tablet 25 mg PO QAM RF: 0 furosemide [Lasix] 20 mg Tablet 20 mg PO WK RF: 0 metoprolol succinate [Toprol XL] 25 mg Tablet Extended Release 24 Hr 75 mg PO DAILY RF: 0 cholecalciferol (vitamin D3) [Vitamin D3] 2,000 unit Capsule 2,000 unit PO DAILY RF: 0 tramadol 50 mg tablet 50 mg PO Q6H PRN (Reason: Pain) RF: 0 Referrals Referrals: Rohit Cardenas [Primary Care Provider] - The scribe's documentation has been prepared under my direction and personally reviewed by me in its entirety. I confirm that the note above accurately reflects all work, treatment, procedures, and medical decision making performed by me.
[2018-05-10] MEDS ORDERED: ONDANSETRON INJ 2 MG/ML 2 ML VIAL IV PRN (16:47)
[2018-05-10] MEDS ORDERED: MoRPHine SULFATE 4 MG/ML 1 ML CARP\\VIAL IV PRN (16:47)
[2018-05-10] MEDS ORDERED: dilTIAZem HCL 240 MG CAPCR PO STA (16:57)
[2018-05-10] MEDS ORDERED: METOPROLOL SUCC 25MG EXT REL TAB PO STA (16:58)
[2018-05-10 18:20] LABS: BUN Creatinine Ratio 15.2 (10-20); Calcium 8.8 mg/dl (8.5-10.1); Creatinine Clr Calc Pharmacy 55.7 ml/min; Est GFR (African American) 82.5; Est GFR (Non-African American) 71.2; Magnesium 1.8 mg/dl (1.8-2.4); Potassium 3.1 mmol/L (3.5-5.1)
[2018-05-10] MEDS: BACLOFEN 10 MG TAB PO SCH (20:11)
[2018-05-10] MEDS: PRAVASTATIN SOD 40 MG TAB PO SCH (20:11)
[2018-05-10] MEDS: ACETAMINOPHEN 325 MG TAB PO SCH (20:11)
[2018-05-11] MEDS: ACETAMINOPHEN 325 MG TAB PO SCH ×3 (04:59→20:07)
[2018-05-11 06:19] LABS: INR 1.2 (0.9-1.1); Prothrombin Time 12.1 Seconds (9.0-12.0)
[2018-05-11 06:43] LABS: BUN Creatinine Ratio 16.7 (10-20); Calcium 8.5 mg/dl (8.5-10.1); Creatinine Clr Calc Pharmacy 61.9 ml/min; Est GFR (African American) 91.4; Est GFR (Non-African American) 78.9; Potassium 3.1 mmol/L (3.5-5.1)
[2018-05-11] MEDS ORDERED: POTASSIUM CHLORIDE 10 MEQ TABCR PO STA (07:26)
--- NOTE | 2018-05-11 07:50 | XRay Report ---
XR chest 1V portable CLINICAL HISTORY: CHF COMPARISON STUDY: Chest radiograph and chest CT May 10, 2018. FINDINGS: There are median sternotomy wires. Moderate cardiomegaly is noted. Pulmonary edema persists . Small to moderate right and small left pleural effusions are unchanged. IMPRESSION: Persistent pulmonary edema and bilateral pleural effusions. Electronically signed by: Andre Barrett M.D. 05/11/2018 7:48 AM
[2018-05-11] MEDS: SERTRALINE HCL 50 MG TABLET PO SCH (07:52)
[2018-05-11] MEDS: BACLOFEN 10 MG TAB PO SCH ×2 (07:53→20:08)
[2018-05-11] MEDS ORDERED: METOPROLOL SUCC 25MG EXT REL TAB PO SCH (09:00)
[2018-05-11] MEDS ORDERED: dilTIAZem HCL 240 MG CAPCR PO SCH (09:00)
[2018-05-11] MEDS: POTASSIUM CHLORIDE / WTR 10 MEQ/100 ML PLCT IV SCH ×3 (09:18→23:16)
[2018-05-11] MEDS: FUROSEMIDE 40 MG in SYRINGE 0 ML IV SCH (09:49)
--- NOTE | 2018-05-11 10:49 | Consultation Report ---
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 MACHINERY CLEANER: Carlos Navarro DO, [facility]. REQUESTING PHYSICIAN: YOEL Ely. Dear Mr. Vieira: It was pleasure to see Lisa today in consultation with regards to her acute on chronic diastolic and right-sided heart failure. As you know, she is a pleasant 88-year-old female who has some slight memory issues. She was seen in the Emergency Room on this past Monday due to severe back pain and was found to have a compression fracture. She was discharged back to the care home. The care home thought she looked more short of breath over the last number of days and they also noted that they were having difficulty with pain control. She does describe some shortness of breath, although she is not the greatest historian. She has received IV diuretics and has had a very good diuresis. She notes that her shortness of breath is improved. She notes last fall, she had a pretty significant weight gain. She notes over the last 5 days, she has had some increased abdominal distention, but has not really noticed much in the way of lower extremity edema. She denies any PND, orthopnea, chest pain, chest pressure, chest heaviness. She was aware of palpitations in the Emergency Room and was having ventricular ectopy, but her potassium at that time was 2.9. She denies any lightheadedness, dizziness, presyncope, syncope. She has not had any falls. I did observe her walking today with a walker from the commode back to a chair, it was very slow and she needed 2 people to assist her. The rest of a complete review of systems is otherwise negative. PAST MEDICAL HISTORY: 1. Status post bioprosthetic aortic valve replacement 01/04/[address] [place] aortic valve replacement. 2. Off anticoagulation due to increased risk of bleeding and falls. 3. Hypertension. 4. History of severe aortic stenosis prior to her aortic valve replacement. 5. Osteoporosis with recent compression fracture. 6. Hyperlipidemia. 7. Echocardiogram today with preserved LV function and no regional wall motion abnormalities; type 3 diastolic dysfunction; severely dilated right ventricle with normal RV function; and at least moderate pulmonary hypertension. 8. 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 9. History of syncope June 2016 without a prodrome and a subsequent subdural hematoma, now off anticoagulation with no recurrence. FAMILY HISTORY: No family history of early heart attacks. Her dad had a stroke. Mom from Alzheimer's. SOCIAL HISTORY: She denies any tobacco currently, having stopped in 1974, having smoked for 20 years a pack to a [id number] per day. She is living in a care home currently. ALLERGIES: AMOXICILLIN, AVELOX, PENICILLIN AND RHINOCORT. MEDICATIONS: Reviewed in the electronic medical record. PHYSICAL EXAMINATION: GENERAL: She is awake, alert. She is mildly confused. She does know her name and her history is so-so, but she is not the most reliable historian. VITAL SIGNS: Her rate is 72, blood pressure 133/89, respirations 18, and her sats 92%. HEENT: 2+ carotid upstrokes, no evidence of carotid bruits. Her jugular venous pressure appeared elevated. Her sclerae are anicteric. Her hearing is diminished. LUNGS: Decreased breath sounds approximately a third of the way up on the right and a quarter of the way up on the left. There were no rales or rhonchi. HEART: Irregular rate and rhythm. There is a soft systolic ejection murmur at the right sternal border. There is a holosystolic murmur at the lower left sternal border. Her second heart sound is accentuated and palpable consistent with severe pulmonary hypertension. ABDOMEN: Soft, nontender, mildly distended. Positive bowel sounds. EXTREMITIES: No clubbing, cyanosis. She has trace bilateral lower extremity edema. SKIN: Chronic stasis changes. PSYCHIATRIC: Affect appeared appropriate. DIAGNOSTIC STUDIES: Chest CT yesterday, no evidence of pulmonary embolism, moderate pulmonary edema with a moderate right and small left pleural effusion, moderate cardiomegaly with significant dilation of the right heart chambers and reflux in the IVC and hepatic veins suggesting elevated right atrial pressures, mildly dilated ascending aorta at 4.4 cm. LABORATORY DATA: Hemoglobin of 13.6, platelet count 148. Sodium 138, potassium 3.1 that is up from 2.9, chloride 102, CO2 of 28, BUN 11, creatinine 0.66, magnesium was 1.8. IMPRESSION: 1. 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 2. Echocardiogram suggesting normal LV function; flattened intraventricular septum in systole consistent with RV pressure overload; type 3 diastolic dysfunction; marked biatrial and RV dilation with preserved RV function. 3. Status post bioprosthetic aortic valve replacement with normal gradients across the prosthesis. 4. Hypokalemia and hypomagnesemia. 5. Recent compression fracture. As discussed with the [facility] hospitalist service, I made the following recommendations: I will continue with her IV diuretics with Lasix 40 mg this morning as well. She had a very good diuresis yesterday and is negative approximately 2.7 liters via I's and O's, and her weight if reliable, suggest she is down about 4 kg. I would aggressively replete both her magnesium and her potassium while she is receiving diuretics. I would push her diuretics until she becomes slightly prerenal. She has significant right-sided heart failure and diastolic dysfunction, this is likely exacerbated due to her pain, which has been uncontrolled leading to increased blood pressure. I would continue with the rest of her medications. With regards to her atrial fibrillation, she is asymptomatic and a rate control strategy is recommended. She is not on anticoagulation due to her history of falls and a significant subdural hematoma in 2017. When she is adequately diuresed, I would discharge her on 40 mg of p.o. furosemide with close monitoring of her potassium, creatinine and magnesium. She should also be discharged on a low-salt diet and they will need to weigh her on a regular basis at the care home. If her weight is up more than 2-3 pounds over 24-48 hours, then they would need to be instructed to give her an additional dose of diuretics until her weight improves. All this was discussed with the hospitalist service and the patient. Thank you for allowing us to participate in her care.
--- NOTE | 2018-05-11 14:16 | CT Scan Report ---
LUMBAR SPINE CT CT DOSE: 695.68 mGycm HISTORY: L1 compression fracture. define compression fracture/back pain TECHNIQUE: Multiaxial CT images of the lumbar spine were performed and reformatted in the sagittal an d coronal plane without the use of contrast. A dose lowering technique was utilized adhering to the principles of ALARA. COMPARISON: Abdomen and pelvis CT 05/06/2018. FINDINGS: There is redemonstration of the acute to subacute L1 compression fracture. This involves pako th the superior and inferior endplates. This is similar to the prior study. This demonstrates 50% los s of height centrally. This extends to the posterior cortex where there is up to 4 mm of retropulsion of the posterior superior corner without significant central canal narrowing. Mild paravertebral ortega ma at this location. The posterior elements are intact. There is a vertebral body hemangioma within t he mid L1 vertebral body. Therefore, by definition this is consistent with a pathologic compression f racture. No additional fractures identified within the lumbar spine. There is the sacrum is intact. M ild disc space narrowing at L5-S1. Pleural effusions are partially visualized. Small broad-based post erior disc bulges at L3-L4 and L4-L5 with mild central canal narrowing. Mild bilateral neural foramin al narrowing at L4-L5 and L5-S1. IMPRESSION: 1. Redemonstration of the subacute to subacute L1 compression fracture demonstrating 50% loss of heig ht centrally. There is 4 mm of retropulsion of the posterior superior corner without significant cent ral canal narrowing. Paravertebral edema favors posttraumatic change. 2. There is a vertebral body hemangioma within the mid L1 vertebral body. Therefore, by definition th is is consistent with a pathologic compression fracture. 3. Degenerative changes as described above. Electronically signed by: Kevin Stevens M.D. 05/11/2018 2:14 PM
--- NOTE | 2018-05-11 17:04 | Hospitalist Progress Note ---
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 --S/P bioprosthetic aortic valve replacement --ECHO: Suggestive of Normal LV function; flattened intraventricular septum in systole consistent with RV pressure overload; type 3 diastolic dysfunction; marked biatrial and RV dilation with preserved RV function. --CT suggestive of Moderate pulmonary edema. 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 Orthopedics consulted Pain control PT/OT Hypokalemia: Replace electrolytes as needed Atrial fibrillation: Not on anticoagulation secondary to H/O ICH and frequent falls Continue metoprolol, diltiazem HTN: Stable Continue home medications Depression: Continue Sertraline Dyslipidemia: Continue statin DVT Px: SCDs Code Status DNR Disposition: PT/OT prior to discharge Subjective Patient is seen and examined at bedside Shortness of breath is better Reports back pain Denies chest pain, nausea No family at bedside Physical Exam 2 Vital Signs (Past 24 Hours): Last Vital Signs Temp 36.6 C 05/11/18 10:44 Pulse 73 05/11/18 10:44 Resp 19 05/11/18 10:44 BP 141/88 H 05/11/18 10:44 Pulse Ox 93 05/11/18 10:44 Physical Exam: Physical Exam: Vitals signs as noted above General Appearance:Moderately built and nourished, no apparent distress Head: normocephalic, Atraumatic Eyes: normal inspection, EOMI Neck: supple, Trachea midline Respiratory/Chest: Decreased breath sounds, B/L Crackles Cardiovascular: Irregularly Irregular, No murmur Abdomen/GI:Soft, Non tender, Bowel sounds present Extremities/Musculoskelatal:normal inspection, B/L LE non pitting edema Neurologic/Psych:AAOX3, grossly no focal neurological deficits Skin: normal color, warm Results & Data Laboratory Results [facility] 05/10/18 05/11/18 17:55 05:46 Sodium 136 138 Potassium 3.1 L 3.1 L Chloride 99 102 Carbon Dioxide 29 28 BUN 11 11 Creatinine 0.75 0.66 Glucose 142 H 104 H Calcium 8.8 8.5 Diagnostic Findings CXR: Persistent pulmonary edema and bilateral pleural effusions. _ (1) CHF (congestive heart failure) Heart failure chronicity: unspecified Heart failure type: unspecified Qualified Code(s): I50.9 - Heart failure, unspecified
[2018-05-11] MEDS: PRAVASTATIN SOD 40 MG TAB PO SCH (20:08)
--- NOTE | 2018-05-11 21:56 | Hospitalist Progress Note ---
Date of Service May 11, 2018 Subjective Made aware by RN of episodic bradycardia, cardiac rate 40s. Patient somewhat slow to awaken as per RN. AP Episodic bradycardia Check electrolytes Decrease maintenance beta-janette, calcium channel janette doses. Will relay to AM provider. Physical Exam 2 Vital Signs (Past 24 Hours): Last Vital Signs Temp 36.4 C L 05/11/18 20:00 Pulse 66 05/11/18 20:00 Resp 18 05/11/18 20:00 BP 129/81 05/11/18 20:00 Pulse Ox 94 05/11/18 20:00
[2018-05-11] MEDS: POTASSIUM CHLORIDE 20 MEQ TABCR PO ONE ×2 (22:06→22:43)
[2018-05-11] MEDS ORDERED: MAGNESIUM SULFATE / D5W 1 GM/100 ML BAG IV ONE (22:15)
[2018-05-11 22:33] LABS: Allen Test POS (Pos); HCO3 ABG 31 mmol/L (19-24); Oxygen Saturation ABG 96.6 % (90-95); PCO2 ABG 47 mmHg (35-46); PO2 ABG 85 mm/Hg (80-95); pH ABG 7.44 (7.35-7.45)
[2018-05-11 22:49] LABS: BUN Creatinine Ratio 25.4 (10-20); Calcium 8.3 mg/dl (8.5-10.1); Creatinine Clr Calc Pharmacy 54.4 ml/min; Est GFR (African American) 82.5; Est GFR (Non-African American) 71.2
[2018-05-11 23:32] LABS: Potassium 3.5 mmol/L (3.5-5.1)
[2018-05-11 23:34] LABS: Magnesium 2.1 mg/dl (1.8-2.4)
[2018-05-12] MEDS: POTASSIUM CHLORIDE / WTR 10 MEQ/100 ML PLCT IV SCH ×3 (00:40→02:19)
[2018-05-12] MEDS ORDERED: POTASSIUM CHLORIDE / WTR 10 MEQ/100 ML PLCT IV ONE (03:00)
[2018-05-12] MEDS: ACETAMINOPHEN 325 MG TAB PO SCH ×3 (05:41→21:01)
[2018-05-12 06:47] LABS: BUN Creatinine Ratio 23.7 (10-20); Calcium 8.7 mg/dl (8.5-10.1); Creatinine Clr Calc Pharmacy 53.1 ml/min; Est GFR (African American) 79.9; Est GFR (Non-African American) 68.9; Magnesium 2.2 mg/dl (1.8-2.4); Potassium 4.3 mmol/L (3.5-5.1)
[2018-05-12] MEDS: METOPROLOL SUCC 25MG EXT REL TAB PO SCH (08:24)
[2018-05-12] MEDS: BACLOFEN 10 MG TAB PO SCH ×2 (08:24→22:03)
[2018-05-12] MEDS: dilTIAZem HCL 180 MG CAPCR PO SCH (08:24)
[2018-05-12] MEDS: SERTRALINE HCL 50 MG TABLET PO SCH (08:58)
[2018-05-12] MEDS: FUROSEMIDE 40 MG in SYRINGE 0 ML IV SCH (09:00)
--- NOTE | 2018-05-12 10:18 | Cardiology Progress Note ---
Date of Service May 12, 2018 She seems more confused this morning. She denies any chest pain or chest pressure. She denies any shortness of breath. She notes overall she just does not quite feel well. Her lower extremity edema has improved. She has any lightheadedness or dizziness. She was confused as to still being at [facility]. Physical Exam 2 Vital Signs (Past 24 Hours): Last Vital Signs Temp 36.8 C 05/12/18 06:51 Pulse 68 05/12/18 08:00 Resp 19 05/12/18 06:51 BP 105/91 05/12/18 06:51 Pulse Ox 94 05/12/18 06:51 PHYSICAL EXAMINATION: HEENT: 2+ carotid upstrokes, no evidence of carotid bruits. Her jugular venous pressure appeared elevated. Her sclerae are anicteric. Her hearing is diminished. LUNGS: Decreased breath sounds approximately a third of the way up on the right and a quarter of the way up on the left. There were no rales or rhonchi. HEART: Irregular rate and rhythm. There is a soft systolic ejection murmur at the right sternal border. There is a holosystolic murmur at the lower left sternal border. Her second heart sound is accentuated and palpable consistent with severe pulmonary hypertension. ABDOMEN: Soft, nontender, mildly distended. Positive bowel sounds. EXTREMITIES: No clubbing, cyanosis. She has trace bilateral lower extremity edema. SKIN: Chronic stasis changes. PSYCHIATRIC: Affect appeared appropriate. IMPRESSION: 1. 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 2. Echocardiogram suggesting normal LV function; flattened intraventricular septum in systole consistent with RV pressure overload; type 3 diastolic dysfunction; marked biatrial and RV dilation with preserved RV function. 3. Status post bioprosthetic aortic valve replacement with normal gradients across the prosthesis. 4. Hypokalemia and hypomagnesemia. 5. Recent compression fracture. 6. Moderate pulmonary hypertension with a severely dilated right ventricle and associated RV dysfunction I recommend giving her an additional dose of 20 mg of Lasix this evening. If you look at her I's and O's she appears relatively equal. I did discuss with the hospitalist she may need additional diuretic not appear overly prerenal this morning. She notes she continues to have significant back discomfort but has not received any pain medicines that would be contributing to her confusion. We will have to watch her confusion. Whether some of this is related to underlying dementia that is exacerbated while being in the hospital as well as her underlying medical conditions is unclear. Her diltiazem was reduced from 240 mg to 180 mg due to bradycardia with sleep. Based on her blood pressure this morning this seems acceptable.
[2018-05-12] MEDS ORDERED: FUROSEMIDE 20 MG in SYRINGE 0 ML IV ONE (15:00)
--- NOTE | 2018-05-12 15:43 | Hospitalist Progress Note ---
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 --S/P bioprosthetic aortic valve replacement --ECHO: Suggestive of Normal LV function; flattened intraventricular septum in systole consistent with RV pressure overload; type 3 diastolic dysfunction; marked biatrial and RV dilation with preserved RV function. --CT suggestive of Moderate pulmonary edema. 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 Orthopedics consulted Pain control PT/OT Hypokalemia: Replace electrolytes as needed Atrial fibrillation: Not on anticoagulation secondary to H/O ICH and frequent falls Continue metoprolol, diltiazem HTN: Stable Continue home medications Depression: Continue Sertraline Dyslipidemia: Continue statin DVT Px: SCDs Code Status DNR Disposition: PT/OT prior to discharge Subjective Patient is seen and examined at bedside Pleasantly confused intermittently Leg swelling improving Reports chronic back pain Denies chest pain, dyspnea, nausea, dizziness No family at bedside Physical Exam 2 Vital Signs (Past 24 Hours): Last Vital Signs Temp 36.8 C 05/12/18 12:00 Pulse 79 05/12/18 12:00 Resp 18 05/12/18 12:00 BP 115/63 05/12/18 12:00 Pulse Ox 95 05/12/18 13:26 Physical Exam: Physical Exam: Vitals signs as noted above General Appearance:Moderately built and nourished, no apparent distress Head: normocephalic, Atraumatic Eyes: normal inspection, EOMI Neck: supple, Trachea midline Respiratory/Chest: Decreased breath sounds, CTA Cardiovascular: Irregularly Irregular, + systolic murmur Abdomen/GI:Soft, Non tender, Bowel sounds present Extremities/Musculoskelatal:normal inspection, B/L LE non pitting edema Neurologic/Psych:AAOX3, grossly no focal neurological deficits Skin: normal color, warm Results & Data Laboratory Results [facility] 05/11/18 05/11/18 05/12/18 22:15 23:04 05:50 Sodium 139 138 Potassium 3.5 4.3 D Chloride 104 103 Carbon Dioxide 28 29 BUN 19 H D 18 Creatinine 0.75 0.77 Glucose 112 H 92 Calcium 8.3 L 8.7 _ (1) CHF (congestive heart failure) Heart failure chronicity: unspecified Heart failure type: unspecified Qualified Code(s): I50.9 - Heart failure, unspecified
[2018-05-12] MEDS: PRAVASTATIN SOD 40 MG TAB PO SCH (21:01)
[2018-05-13] MEDS: ACETAMINOPHEN 325 MG TAB PO SCH ×3 (05:55→20:03)
[2018-05-13 06:49] LABS: Hematocrit (blood only) 41.9 % (37-47); Hemoglobin 13.7 g/dL (12.0-16.0); Mean Corpuscular Hgb Conc 32.7 g/dL (32-36); Mean Corpuscular Volume 95.2 fL (80-100); Mean Platelet Volume 9.7 fL (7.4-10.4); Platelet Count 165 K/uL (130-400); RDW Standard Deviation 51.5 fL (36.4-46.3); White Blood Count 7.96 K/uL (4.8-10.8)
[2018-05-13 07:54] LABS: BUN Creatinine Ratio 23.2 (10-20); Calcium 8.7 mg/dl (8.5-10.1); Creatinine Clr Calc Pharmacy 56.7 ml/min; Est GFR (African American) 86.7; Est GFR (Non-African American) 74.8; Potassium 3.5 mmol/L (3.5-5.1)
[2018-05-13] MEDS: BACLOFEN 10 MG TAB PO SCH ×2 (07:55→20:02)
[2018-05-13] MEDS: METOPROLOL SUCC 25MG EXT REL TAB PO SCH (07:55)
[2018-05-13] MEDS: SERTRALINE HCL 50 MG TABLET PO SCH (07:56)
[2018-05-13] MEDS ORDERED: POTASSIUM CHLORIDE 10 MEQ TABCR PO STA (07:57)
[2018-05-13] MEDS: dilTIAZem HCL 180 MG CAPCR PO SCH (07:57)
[2018-05-13] MEDS: FUROSEMIDE 40 MG in SYRINGE 0 ML IV SCH (10:19)
--- NOTE | 2018-05-13 10:51 | Cardiology Progress Note ---
Date of Service May 13, 2018 She is complaining of significant back discomfort today as well as umbilical discomfort. She is unaware of when her last bowel movement was. She denies any shortness of breath or dyspnea at rest she has any chest pain chest pressure chest heaviness. She seems less confused to me today than she did yesterday. She has any lightheadedness or dizziness. She is unaware of any palpitations or fluttering or feeling her heart racing. Physical Exam 2 Vital Signs (Past 24 Hours): Last Vital Signs Temp 36.7 C 05/13/18 07:08 Pulse 77 05/13/18 08:00 Resp 20 05/13/18 07:08 BP 156/91 H 05/13/18 07:08 Pulse Ox 93 05/13/18 07:08 PHYSICAL EXAMINATION: HEENT: 2+ carotid upstrokes, no evidence of carotid bruits. Her jugular venous pressure appeared elevated. Her sclerae are anicteric. Her hearing is diminished. LUNGS: Decreased breath sounds in the bases which have improved. There were no rales or rhonchi. HEART: Irregular rate and rhythm. There is a soft systolic ejection murmur at the right sternal border. There is a holosystolic murmur at the lower left sternal border. Her second heart sound is accentuated and palpable consistent with severe pulmonary hypertension. ABDOMEN: Soft, umbilical discomfort, non-distended. Positive bowel sounds. EXTREMITIES: No clubbing, cyanosis. No edema SKIN: Chronic stasis changes. PSYCHIATRIC: Affect appeared appropriate. IMPRESSION: 1. 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 2. Echocardiogram suggesting normal LV function; flattened intraventricular septum in systole consistent with RV pressure overload; type 3 diastolic dysfunction; marked biatrial and RV dilation with preserved RV function. 3. Status post bioprosthetic aortic valve replacement with normal gradients across the prosthesis. 4. Hypokalemia and hypomagnesemia. 5. Recent compression fracture. 6. Moderate pulmonary hypertension with a severely dilated right ventricle and associated RV dysfunction She diuresed another 2-1/2 L yesterday. She does not appear to be short of breath. I would change her furosemide to 40 mg p.o. starting tomorrow. I would replete her potassium and magnesium to keep her potassium closer to 4. She is having umbilical discomfort the question is whether this is radiating from her compression fracture. I did add a lipase level to her labs just to make sure she is not having pancreatitis. Her abdomen is soft and she has good bowel sounds.
[2018-05-13] MEDS: DOCUSATE SODIUM 100 MG CAP PO SCH ×2 (11:08→20:02)
[2018-05-13] MEDS: POLYETHYLENE (MIRALAX) 17 GM PACK PO PRN (11:08)
[2018-05-13] MEDS: KETOROLAC TROMETHAMINE 15 MG/ML VIAL IV PRN ×2 (11:08→17:45)
--- NOTE | 2018-05-13 13:36 | Hospitalist Progress Note ---
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 --S/P bioprosthetic aortic valve replacement --ECHO: Suggestive of Normal LV function; flattened intraventricular septum in systole consistent with RV pressure overload; type 3 diastolic dysfunction; marked biatrial and RV dilation with preserved RV function. --CT suggestive of Moderate pulmonary edema. Moderate right and small left pleural effusions --Given IV lasix 40mg daily >>Transition to PO lasix --Appreciate Cardiology Input --Monitor electrolytes, daily weight, I/Os --Wean off oxygen as able --Monitor volume status Pleural effusion: Secondary to above Continue diuretics Abdominal Pain: --CT ABD: Moderate L1 compression fracture with minimal retropulsion. This fracture is acute to subacute. Extensive colonic diverticulosis without evidence for acute diverticulitis. Redundant sigmoid colon with mild dilatation. No evidence for a volvulus. Trace pericholecystic fluid, a nonspecific finding. If persistent right upper quadrant pain, an ultrasound could be obtained. No gallbladder distention. Liver nodularity. This suggests cirrhosis, potentially on the basis of right heart dysfunction given the additional findings. Small right pleural effusion. 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 Orthopedics consulted Pain control PT/OT Hypokalemia: Replace electrolytes as needed Atrial fibrillation: Not on anticoagulation secondary to H/O ICH and frequent falls Continue metoprolol, diltiazem HTN: Stable Continue home medications Depression: Continue Sertraline Dyslipidemia: Continue statin DVT Px: SCDs Code Status DNR Disposition: PT/OT prior to discharge Subjective Patient is seen and examined at bedside Complains of abdominal pain today She is unsure when she had last BM Leg swelling improving Reports chronic back pain Denies chest pain, dyspnea, nausea, dizziness No family at bedside Physical Exam 2 Vital Signs (Past 24 Hours): Last Vital Signs Temp 36.9 C 05/13/18 11:34 Pulse 77 05/13/18 12:00 Resp 20 05/13/18 11:34 BP 139/89 05/13/18 11:34 Pulse Ox 94 05/13/18 11:34 Physical Exam: Physical Exam: Vitals signs as noted above General Appearance:Moderately built and nourished, no apparent distress Head: normocephalic, Atraumatic Eyes: normal inspection, EOMI Neck: supple, Trachea midline Respiratory/Chest: Decreased breath sounds, CTA Cardiovascular: Irregularly Irregular, + systolic murmur Abdomen/GI:Soft, generalized tender, Bowel sounds present Extremities/Musculoskelatal:normal inspection, B/L LE non pitting edema Neurologic/Psych:AAOX3, grossly no focal neurological deficits Skin: normal color, warm Results & Data Laboratory Results Short CBC 05/13/18 Range/Units 06:31 WBC 7.96 (4.8-10.8) K/uL Hgb 13.7 (12.0-16.0) g/dL Hct 41.9 (37-47) % Plt Count 165 (130-400) K/uL BMP 05/13/18 06:31 Sodium 138 Potassium 3.5 D Chloride 98 Carbon Dioxide 31 BUN 17 Creatinine 0.72 Glucose 95 Calcium 8.7 _ (1) CHF (congestive heart failure) Heart failure chronicity: unspecified Heart failure type: unspecified Qualified Code(s): I50.9 - Heart failure, unspecified
[2018-05-13] MEDS: MoRPHine SULFATE 4 MG/ML 1 ML CARP\\VIAL IV PRN (15:11)
--- NOTE | 2018-05-13 16:21 | XRay Report ---
XR KUB CLINICAL HISTORY: Generalized abdominal pain COMPARISON STUDY: No previous studies for comparison. FINDINGS: There are no calcifications suspicious for renal calculi. There is scattered stool the colo n. There is no pathologic bowel dilatation. There are multiple vertebral body compression deformities . IMPRESSION: No evidence of pathologic bowel dilatation. Electronically signed by: Joseph Bennett M.D. 05/13/2018 4:20 PM
--- NOTE | 2018-05-13 16:24 | Ultrasound Report ---
BILIARY ULTRASOUND CLINICAL HISTORY: Abdominal pain COMPARISON STUDY: CT scan dated 05/06/2018 FINDINGS: The study was difficult from a technical standpoint as the patient was unable to fully coop erate. The liver has a very subtle nodular contour raising the possibility of cirrhosis. No focal hepatic ma sses were visualized. The gallbladder appeared sonographically normal. There is no ductal dilatation. The common bile duct measured 4 mm. There is no right-sided hydronephrosis. The pancreas appears somewhat atrophic. No pancreatic masses were delineated IMPRESSION: 1. Ultrasonographically normal gallbladder. No evidence of ductal dilatation 2. Very subtle nodular contour of the liver, raising the possibility of cirrhosis.. Electronically signed by: Joseph Bennett M.D. 05/13/2018 4:23 PM
[2018-05-13] MEDS: PRAVASTATIN SOD 40 MG TAB PO SCH (20:02)
[2018-05-14] MEDS: ACETAMINOPHEN 325 MG TAB PO SCH ×3 (04:54→21:53)
[2018-05-14 06:44] LABS: BUN Creatinine Ratio 27.3 (10-20); Calcium 8.9 mg/dl (8.5-10.1); Creatinine Clr Calc Pharmacy 56.4 ml/min; Est GFR (African American) 88.1; Magnesium 2.1 mg/dl (1.8-2.4); Potassium 3.6 mmol/L (3.5-5.1)
[2018-05-14] MEDS: METOPROLOL SUCC 25MG EXT REL TAB PO SCH (08:27)
[2018-05-14] MEDS: DOCUSATE SODIUM 100 MG CAP PO SCH ×2 (08:27→20:02)
[2018-05-14] MEDS: dilTIAZem HCL 180 MG CAPCR PO SCH (08:27)
[2018-05-14] MEDS: SERTRALINE HCL 50 MG TABLET PO SCH (08:27)
[2018-05-14] MEDS: BACLOFEN 10 MG TAB PO SCH ×2 (08:27→20:02)
[2018-05-14] MEDS: FUROSEMIDE 40 MG TAB PO SCH (08:27)
--- NOTE | 2018-05-14 12:09 | Consultation ---
Date of Consultation May 14, 2018 Assessment & Plan (1) Lumbar compression fracture: At this point in time she denies any pain. We will treat this conservatively. I would not recommend bracing due to lack of pain. Activity is as tolerated. Would not recommend aggressive surgical intervention. She can follow-up in our office in about 2 weeks upon discharge.[phone] Supervising Physician Co-Signing Physician Notes Dr. Diaz Wilkerson History of Present Illness Attending Physician: Grayson Huff MD This is a pleasant 88-year-old female that we are asked to see in consultation regarding an acute to subacute L1 compression fracture. Patient is somewhat of a difficult/poor historian. She denies any knowledge of recent fall. She denies back pain. Denies radicular leg pain. States she currently lives at [facility]. And relates with a walker. Allergies Allergy/AdvReac Type Severity Reaction Status Date / Time Penicillins Allergy Severe THROAT Unverified 05/10/18 12:08 SWELLS AND RASH budesonide Allergy Unknown UNKNOWN Unverified 05/10/18 12:08 moxifloxacin Allergy Unknown UNKNOWN Unverified 05/10/18 12:08 Home Medications Home Medications Medication Instructions Recorded Confirmed Type acetaminophen [Tylenol Extra 500 mg PO Q4 PRN 05/06/18 05/10/18 History Strength] cholecalciferol (vitamin D3) 2,000 unit PO DAILY 05/06/18 05/10/18 History [Vitamin D3] diltiazem HCl 240 mg PO DAILY 05/06/18 05/10/18 History docusate sodium 100 mg PO DAILY PRN 05/06/18 05/10/18 History furosemide [Lasix] 20 mg PO WK 05/06/18 05/10/18 History furosemide [Lasix] 40 mg PO 4XWK 05/06/18 05/10/18 History guaifenesin [Siltussin SA] 10 ml PO QID PRN 05/06/18 05/10/18 History metoprolol succinate [Toprol XL] 75 mg PO DAILY 05/06/18 05/10/18 History pravastatin 40 mg PO HS 05/06/18 05/10/18 History sertraline 25 mg PO QAM 05/06/18 05/10/18 History tramadol 50 mg PO Q6H PRN 05/10/18 05/10/18 History Patient History Medical History Compression fracture of L1 vertebra (Acute) Dislocation of shoulder, right, closed (Resolved) Effusion of right elbow (Resolved) Hypokalemia (Acute) Intracranial hemorrhage (Inactive) Lip laceration (Resolved) Right orbital fracture (Resolved) Syncope (Resolved) Atrial fibrillation (Chronic) Depression (Chronic) Dyslipidemia (Chronic) Essential hypertension (Chronic) Surgical History History of aortic valve replacement (Chronic) Family History Other Family history non-contributory Social History marital status: / Current Living Situation: Personal Care Facility Other Information That Helps Us Care for You: No Feels Safe at Home: Yes Safety Concerns: Feels Safe At This Time Smoking Status: Former smoker Do You Dip or Chew Tobacco: No Smoking End Date: 1977 Second Hand Exposure: No Tobacco Cessation Education Requested by Patient: No Hx Alcohol Use: Yes Alcohol type: wine Alcohol Intake Frequency: holidays/ special occasions only Hx Substance Use: No Beliefs That Will Affect Care: None Communication Ability: Effective Physical Exam 2 Vital Signs (Past 24 Hours): Last Vital Signs Temp 36.8 C 05/14/18 11:50 Pulse 112 H 05/14/18 11:50 Resp 18 05/14/18 11:50 BP 130/90 05/14/18 11:50 Pulse Ox 96 05/14/18 11:50 Physical Exam: She sitting in a chair. She is in no obvious distress. She is able to lean forward. This does not intensifier reproduce her pain. She has no ecchymosis or obvious skin lacerations or thoracolumbar spine. She is nontender to palpation percussion to the thoracolumbar spine. Constitutional: well developed and comfortable Eyes: normal visual turner by confrontation ENMT: external ear and nose normal, oropharynx normal Neck: normal visual inspection Respiratory: normal respiratory effort Cardiovascular: Rate/Rhythm: regular rate Gastrointestinal (Abdomen): Inspection/Auscultation: abdomen normal to inspection Musculoskeletal: no cyanosis or clubbing, extremities motor strength 5/5 Extremities: strength 5/5 throughout Skin: no rashes, warm and dry Neurologic: patellar DTR's 2+ bilat, sensation intact + confused Psychiatric: Orientation: alert and cooperative Results & Data Diagnostic Findings LUMBAR SPINE CT CT DOSE: 695.68 mGycm HISTORY: L1 compression fracture. define compression fracture/back pain TECHNIQUE: Multiaxial CT images of the lumbar spine were performed and reformatted in the sagittal and coronal plane without the use of contrast. A dose lowering technique was utilized adhering to the principles of ALARA. COMPARISON: Abdomen and pelvis CT 05/06/2018. FINDINGS: There is redemonstration of the acute to subacute L1 compression fracture. This involves both the superior and inferior endplates. This is similar to the prior study. This demonstrates 50% loss of height centrally. This extends to the posterior cortex where there is up to 4 mm of retropulsion of the posterior superior corner without significant central canal narrowing. Mild paravertebral edema at this location. The posterior elements are intact. There is a vertebral body hemangioma within the mid L1 vertebral body. Therefore , by definition this is consistent with a pathologic compression fracture. No additional fractures identified within the lumbar spine. There is the sacrum is intact. Mild disc space narrowing at L5-S1. Pleural effusions are partially visualized. Small broad-based posterior disc bulges at L3-L4 and L4-L5 with mild central canal narrowing. Mild bilateral neural foraminal narrowing at L4- L5 and L5-S1. IMPRESSION: 1. Redemonstration of the subacute to subacute L1 compression fracture demonstrating 50% loss of height centrally. There is 4 mm of retropulsion of the posterior superior corner without significant central canal narrowing. Paravertebral edema favors posttraumatic change. 2. There is a vertebral body hemangioma within the mid L1 vertebral body. Therefore, by definition this is consistent with a pathologic compression fracture. 3. Degenerative changes as described above. Electronically signed by: Kevin Stevens M.D. 05/11/2018 2:14 PM Dictated: 05/11/18 _ (1) Lumbar compression fracture Encounter type: initial encounter Fracture healing: Fracture type: closed Lumbar vertebra fracture level: L1 Qualified Code(s): S32.010A - Wedge compression fracture of first lumbar vertebra, initial encounter for closed fracture
--- NOTE | 2018-05-14 16:43 | Hospitalist Progress Note ---
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 --S/P bioprosthetic aortic valve replacement --ECHO: Suggestive of Normal LV function; flattened intraventricular septum in systole consistent with RV pressure overload; type 3 diastolic dysfunction; marked biatrial and RV dilation with preserved RV function. --CT suggestive of Moderate pulmonary edema. Moderate right and small left pleural effusions --Given IV lasix 40mg daily >>Transition to PO lasix --Appreciate Cardiology Input --Monitor electrolytes, daily weight, I/Os --Wean off oxygen as able --Monitor volume status --Continue diuresis Pleural effusion: Secondary to above Continue diuretics Abdominal Pain: --CT ABD: Moderate L1 compression fracture with minimal retropulsion. This fracture is acute to subacute. Extensive colonic diverticulosis without evidence for acute diverticulitis. Redundant sigmoid colon with mild dilatation. No evidence for a volvulus. Trace pericholecystic fluid, a nonspecific finding. If persistent right upper quadrant pain, an ultrasound could be obtained. No gallbladder distention. Liver nodularity. This suggests cirrhosis, potentially on the basis of right heart dysfunction given the additional findings. Small right pleural effusion. 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 Appreciate Orthopedics Input Conservative management Pain control PT/OT Needs FU with Ortho upon discharge Hypokalemia: Replace electrolytes as needed Atrial fibrillation: Not on anticoagulation secondary to H/O ICH and frequent falls Continue metoprolol, diltiazem HTN: Stable Continue home medications Depression: Continue Sertraline Dyslipidemia: Continue statin DVT Px: SCDs Code Status DNR Disposition: Needs SNF placement Subjective Patient is seen and examined at bedside Complains of back pain No other complaints Leg swelling improving Denies chest pain, dyspnea, nausea, dizziness No family at bedside Physical Exam 2 Vital Signs (Past 24 Hours): Last Vital Signs Temp 36.5 C 05/14/18 15:42 Pulse 81 05/14/18 15:42 Resp 16 05/14/18 15:42 BP 132/74 05/14/18 15:42 Pulse Ox 96 05/14/18 15:42 Physical Exam: Physical Exam: Vitals signs as noted above General Appearance:Moderately built and nourished, no apparent distress Head: normocephalic, Atraumatic Eyes: normal inspection, EOMI Neck: supple, Trachea midline Respiratory/Chest: Decreased breath sounds, CTA Cardiovascular: Irregularly Irregular, + systolic murmur Abdomen/GI:Soft, generalized tender, Bowel sounds present Extremities/Musculoskelatal:normal inspection, B/L LE non pitting edema Neurologic/Psych:AAOX3, grossly no focal neurological deficits Skin: normal color, warm Results & Data Laboratory Results [facility] 05/14/18 05:52 Sodium 139 Potassium 3.6 Chloride 100 Carbon Dioxide 32 BUN 19 H Creatinine 0.71 Glucose 92 Calcium 8.9 _ (1) CHF (congestive heart failure) Heart failure chronicity: unspecified Heart failure type: unspecified Qualified Code(s): I50.9 - Heart failure, unspecified
[2018-05-14] MEDS: PRAVASTATIN SOD 40 MG TAB PO SCH (20:02)
[2018-05-15] MEDS: MoRPHine SULFATE 4 MG/ML 1 ML CARP\\VIAL IV PRN ×2 (00:26→19:08)
[2018-05-15] MEDS: ACETAMINOPHEN 325 MG TAB PO SCH ×3 (05:36→21:20)
[2018-05-15 06:35] LABS: BUN Creatinine Ratio 37.1 (10-20); Calcium 8.7 mg/dl (8.5-10.1); Creatinine Clr Calc Pharmacy 65.7 ml/min; Est GFR (African American) 93.8; Est GFR (Non-African American) 80.9; Potassium 3.5 mmol/L (3.5-5.1)
[2018-05-15] MEDS: METOPROLOL SUCC 25MG EXT REL TAB PO SCH (07:56)
[2018-05-15] MEDS: dilTIAZem HCL 180 MG CAPCR PO SCH (07:57)
[2018-05-15] MEDS: SERTRALINE HCL 50 MG TABLET PO SCH (07:57)
[2018-05-15] MEDS: FUROSEMIDE 40 MG TAB PO SCH (07:57)
[2018-05-15] MEDS: DOCUSATE SODIUM 100 MG CAP PO SCH ×2 (07:57→20:15)
[2018-05-15] MEDS: BACLOFEN 10 MG TAB PO SCH ×2 (07:57→20:15)
[2018-05-15] MEDS ORDERED: POTASSIUM CHLORIDE 10 MEQ TABCR PO ONE (09:15)
--- NOTE | 2018-05-15 10:28 | CT Scan Report ---
CT head/brain wo con CLINICAL HISTORY: 88 years-old Female presenting with Altered Mental Status. TECHNIQUE: Multidetector CT imaging of the head was performed without the use of intravenous contrast . IV contrast: None. One or more dose lowering techniques were used consistent with the principles of ALARA (as low as reasonably achievable), including automatic exposure control, mA or kV adjustment t o individual patient size, and/or use of iterative reconstruction. COMPARISON: 07/01/2016. CT DOSE (mGy.cm): The estimated cumulative dose is 537.48 mGy.cm. FINDINGS: Provider Network Mgr topogram: Unremarkable. Proportional ventricular and sulcal prominence, likely age-related parenchymal volume loss. No hemorr vero. Periventricular and subcortical white matter hypoattenuation, nonspecific but likely indicative of chronic small vessel ischemic change. No acute territorial infarct. No mass effect or midline debra ft. No extra-axial fluid collection. Paranasal sinuses and mastoid air cells clear. Calvarium intact. Intracranial atherosclerosis noted. IMPRESSION: 1. Chronic small vessel ischemic change. No acute intracranial abnormality. Electronically signed by: Hayes Mcfarland M.D. 05/15/2018 10:27 AM
[2018-05-15] MEDS: POLYETHYLENE (MIRALAX) 17 GM PACK PO PRN (11:09)
--- NOTE | 2018-05-15 19:05 | Hospitalist Progress Note ---
Date of Service May 15, 2018 Assessment & Plan (1) CHF (congestive heart failure): Acute on chronic diastolic and right-sided heart failure. --S/P bioprosthetic aortic valve replacement --ECHO: Suggestive of Normal LV function; flattened intraventricular septum in systole consistent with RV pressure overload; type 3 diastolic dysfunction; marked biatrial and RV dilation with preserved RV function. --CT suggestive of Moderate pulmonary edema. Moderate right and small left pleural effusions --Given IV lasix 40mg daily >>Transition to PO lasix --Appreciate Cardiology Input --Monitor electrolytes, daily weight, I/Os --Saturating well on room air --Monitor volume status --Continue home diuretics --Waiting for placement Pleural effusion: Secondary to above Continue diuretics Abdominal Pain: --CT ABD: Moderate L1 compression fracture with minimal retropulsion. This fracture is acute to subacute. Extensive colonic diverticulosis without evidence for acute diverticulitis. Redundant sigmoid colon with mild dilatation. No evidence for a volvulus. Trace pericholecystic fluid, a nonspecific finding. If persistent right upper quadrant pain, an ultrasound could be obtained. No gallbladder distention. Liver nodularity. This suggests cirrhosis, potentially on the basis of right heart dysfunction given the additional findings. Small right pleural effusion. --Normal lipase --ABD USD/KUB: No acute process --Continue Bowel regimen Confusion DD: Delirium/Metabolic encephalopathy CT head:Chronic small vessel ischemic change. No acute intracranial abnormality. Could have underlying dementia Reorient frequently Bradycardia: Decreased Diltiazem and Metoprolol dose initially Tachycardic today Metoprolol dose increased to 50mg today Adjust dose to home dosing as able Appreciate Cardiology Input Hypoxia: Secondary to CHF/pleural effusions Wean off oxygen as able CTA: No PE AAA: 4.4 cm at the level of main pulmonary artery noted on CT Needs FU as outpatient Compression fracture of L1 vertebra: Lumbar CT suggestive of pathologic compression fracture. Appreciate Orthopedics Input Conservative management Pain control PT/OT Needs FU with Ortho upon discharge Hypokalemia: Replace electrolytes as needed Atrial fibrillation: Not on anticoagulation secondary to H/O ICH and frequent falls Continue metoprolol, diltiazem HTN: Stable Continue home medications Depression: Continue Sertraline Dyslipidemia: Continue statin DVT Px: SCDs Code Status DNR Disposition: Needs SNF placement Plan to discharge when accepted at rehab facility Subjective Patient is seen and examined at bedside Patient had dizziness while getting PT this morning Reports back pain with movement CT head showed no acute changes Mental status seemed to be improving Denies chest pain, dyspnea, nausea No family at bedside Physical Exam 2 Vital Signs (Past 24 Hours): Last Vital Signs Temp 36.9 C 05/15/18 15:55 Pulse 93 H 05/15/18 15:55 Resp 16 05/15/18 15:55 BP 131/94 05/15/18 15:55 Pulse Ox 94 05/15/18 15:55 Physical Exam: Physical Exam: Vitals signs as noted above General Appearance:Moderately built and nourished, no apparent distress Head: normocephalic, Atraumatic Eyes: normal inspection, EOMI Neck: supple, Trachea midline Respiratory/Chest: Decreased breath sounds, CTA Cardiovascular: Irregularly Irregular, + systolic murmur Abdomen/GI:Soft, generalized tender, Bowel sounds present Extremities/Musculoskelatal:normal inspection, B/L LE non pitting edema Neurologic/Psych:AAOX3, grossly no focal neurological deficits Skin: normal color, warm Results & Data Laboratory Results [facility] 05/15/18 05:52 Sodium 138 Potassium 3.5 Chloride 101 Carbon Dioxide 32 BUN 23 H Creatinine 0.61 Glucose 93 Calcium 8.7 _ (1) CHF (congestive heart failure) Heart failure chronicity: unspecified Heart failure type: unspecified Qualified Code(s): I50.9 - Heart failure, unspecified
[2018-05-15] MEDS: PRAVASTATIN SOD 40 MG TAB PO SCH (20:15)
[2018-05-15] MEDS ORDERED: TRAMADOL HCL 50 MG TABLET PO PRN (20:48)
[2018-05-15] MEDS ORDERED: POTASSIUM CHLORIDE 20 MEQ TABCR PO STA (20:48)
[2018-05-15] MEDS ORDERED: DIGOXIN 250 MCG in SYRINGE 9 ML IV SCH (21:00)
[2018-05-15] MEDS ORDERED: METOPROLOL TARTRATE 25 MG TAB PO STA (22:41)
[2018-05-15 22:54] LABS: BUN Creatinine Ratio 35.2 (10-20); Calcium 8.9 mg/dl (8.5-10.1); Creatinine Clr Calc Pharmacy 58.1 ml/min; Est GFR (African American) 90.1; Est GFR (Non-African American) 77.7
[2018-05-16] MEDS: MoRPHine SULFATE 4 MG/ML 1 ML CARP\\VIAL IV PRN ×3 (01:17→19:34)
[2018-05-16] MEDS: ACETAMINOPHEN 325 MG TAB PO SCH ×3 (05:53→22:07)
[2018-05-16 07:43] LABS: BUN Creatinine Ratio 36.6 (10-20); Calcium 9.1 mg/dl (8.5-10.1); Creatinine Clr Calc Pharmacy 64.3 ml/min; Est GFR (African American) 93.3; Est GFR (Non-African American) 80.5; Potassium 4.3 mmol/L (3.5-5.1)
[2018-05-16] MEDS: BACLOFEN 10 MG TAB PO SCH ×2 (08:52→20:40)
[2018-05-16] MEDS: SERTRALINE HCL 50 MG TABLET PO SCH (08:53)
[2018-05-16] MEDS: FUROSEMIDE 40 MG TAB PO SCH (08:54)
[2018-05-16] MEDS: dilTIAZem HCL 180 MG CAPCR PO SCH (08:55)
[2018-05-16] MEDS: METOPROLOL SUCC 50MG EXT REL TAB PO SCH (08:56)
[2018-05-16] MEDS: DOCUSATE SODIUM 100 MG CAP PO SCH ×2 (08:58→20:40)
[2018-05-16] MEDS ORDERED: METOPROLOL SUCC 50MG EXT REL TAB PO SCH (09:00)
--- NOTE | 2018-05-16 13:54 | Hospitalist Progress Note ---
Date of Service May 16, 2018 Assessment & Plan (1) CHF (congestive heart failure): Acute on chronic diastolic and right-sided heart failure. --S/P bioprosthetic aortic valve replacement --ECHO: Suggestive of Normal LV function; flattened intraventricular septum in systole consistent with RV pressure overload; type 3 diastolic dysfunction; marked biatrial and RV dilation with preserved RV function. --CT suggestive of Moderate pulmonary edema. Moderate right and small left pleural effusions --Given IV lasix 40mg daily >>Transition to PO lasix --Appreciate Cardiology Input --Monitor electrolytes, daily weight, I/Os --Saturating well on room air --Monitor volume status --Continue home diuretics --Waiting for placement, Plan to discharge once accepted to SNF --Volume status improved Pleural effusion: Secondary to above Continue diuretics Abdominal Pain: --CT ABD: Moderate L1 compression fracture with minimal retropulsion. This fracture is acute to subacute. Extensive colonic diverticulosis without evidence for acute diverticulitis. Redundant sigmoid colon with mild dilatation. No evidence for a volvulus. Trace pericholecystic fluid, a nonspecific finding. If persistent right upper quadrant pain, an ultrasound could be obtained. No gallbladder distention. Liver nodularity. This suggests cirrhosis, potentially on the basis of right heart dysfunction given the additional findings. Small right pleural effusion. --Normal lipase --ABD USD/KUB: No acute process --Continue Bowel regimen Confusion DD: Delirium/Metabolic encephalopathy CT head:Chronic small vessel ischemic change. No acute intracranial abnormality. Could have underlying dementia Reorient frequently Bradycardia:Resolved Decreased Diltiazem and Metoprolol dose initially Continue Metoprolol, Diltiazem Appreciate Cardiology Input Hypoxia: Resolved Secondary to CHF/pleural effusions CTA: No PE Saturating well on room air AAA: 4.4 cm at the level of main pulmonary artery noted on CT Needs FU as outpatient Compression fracture of L1 vertebra: Lumbar CT suggestive of pathologic compression fracture. Appreciate Orthopedics Input Conservative management Pain control PT/OT Needs FU with Ortho upon discharge Hypokalemia: Replace electrolytes as needed Atrial fibrillation: Not on anticoagulation secondary to H/O ICH and frequent falls Continue metoprolol, diltiazem HTN: Stable Continue home medications Depression: Continue Sertraline Dyslipidemia: Continue statin DVT Px: SCDs Code Status DNR Disposition: Needs SNF placement Plan to discharge when accepted at rehab facility Subjective Patient is seen and examined at bedside Doing much better today Mental status seemed to be back to baseline Back pain is better No dizziness today Denies chest pain, dyspnea, nausea No family at bedside Physical Exam 2 Vital Signs (Past 24 Hours): Last Vital Signs Temp 36.8 C 05/16/18 11:51 Pulse 78 05/16/18 11:51 Resp 18 05/16/18 11:51 BP 135/85 05/16/18 11:51 Pulse Ox 96 05/16/18 11:51 Physical Exam: Physical Exam: Vitals signs as noted above General Appearance:Moderately built and nourished, no apparent distress Head: normocephalic, Atraumatic Eyes: normal inspection, EOMI Neck: supple, Trachea midline Respiratory/Chest: Decreased breath sounds, CTA Cardiovascular: Irregularly Irregular, + systolic murmur Abdomen/GI:Soft, generalized tender, Bowel sounds present Extremities/Musculoskelatal:normal inspection, B/L LE non pitting edema Neurologic/Psych:AAOX3, grossly no focal neurological deficits Skin: normal color, warm Results & Data Laboratory Results [facility] 05/15/18 05/16/18 21:27 06:20 Sodium 136 136 Potassium 4.0 4.3 Chloride 100 103 Carbon Dioxide 29 27 BUN 24 H 23 H Creatinine 0.69 0.62 Glucose 97 92 Calcium 8.9 9.1 _ (1) CHF (congestive heart failure) Heart failure chronicity: unspecified Heart failure type: unspecified Qualified Code(s): I50.9 - Heart failure, unspecified
--- NOTE | 2018-05-16 14:10 | Discharge Summary ---
Date of Service May 16, 2018 Admission HPI Per Admitting Provider Primary Care Provider: PCP: Dr. Allen at [facility] 88 y/o female presents via EMS from [facility] with worsening back pain, shortness of breath and cough. Pt was seen in ED on 05/06 due to acute onset of back pain with no known injury and found to have an acute L1 compression fracture then sent back to [facility]. Since then, she reports limited ambulation, spending her days in bed due to the severity of the pain. She reports pain with deep breathing so has not been taking deep breaths. Today , staff felt like she was more short of breath and her back pain was worse. They tried Tramadol for the pain with no relief. Due to pain control issue and shortness of breath with cough, she was sent to the ED for evaluation due to concern of pneumonia. In the ED, she was found to have elevated BNP, pulmonary vascular congestion and pleural effusions c/w CHF so referred for admission. At present, pt's main complaint is back pain and pain with taking a deep breath. She does note SOB with any exertion but feeling better with application of O2 in the ED. Denies fevers, chills, rhinorrhea, head congestion , sore throat, headache, dizziness. She has noted increased "skipped beats" over the past few days but denies chest pain or pressure. Notes occasional wheezing. She reports chronic issues with "fluid retention" but states this is no worse than usual. Her son, Christian, is at the bedside and assisted with the history. Over the past few days, she reports loss of appetite with associated nausea and occasional emesis. No diarrhea or constipation. Admission Exam Per Admitting Provider Constitutional: well developed, well nourished and cooperative; no acute distress Eyes: PERRL, conjunctivae normal, anicteric sclerae EOM intact bilaterally few beats of intention nystagmus bilaterally ENMT: external ear and nose normal, oropharynx normal Neck: trachea midline Respiratory: no respiratory distress, no labored breathing and does not use accessory muscles Auscultation: + diminished lung sounds (at bases bilaterally) ; no rhonchi and no wheezes Cardiovascular: Irregularly irregular without gallop or rub Gastrointestinal (Abdomen): Inspection/Auscultation: normal bowel sounds Percussion/Palpation: abdomen soft and + tympanic to percussion; abdomen nontender and no guarding Musculoskeletal: plantar flexion/dorsiflexion 5/5 bilaterally, hip flexion 3 /5 bilaterally due to pain mannequin refinisher strength 4/5 bilaterally Skin: no rashes, warm and dry Neurologic: sensation to light touch grossly intact bilateral hands and feet Principal Diagnosis Discharge Information Discharge Diagnosis Acute diastolic CHF exacerbation Metabolic encephalopathy Compression fracture of L1 vertebra Discharge Goals Decrease discomfort,Improve disease control, Improve function Discharge Activity Limitations Resume your previous activity Discharge Data Allergies Allergy/AdvReac Type Severity Reaction Status Date / Time Penicillins Allergy Severe THROAT Unverified 05/10/18 12:08 SWELLS AND RASH budesonide Allergy Unknown UNKNOWN Unverified 05/10/18 12:08 moxifloxacin Allergy Unknown UNKNOWN Unverified 05/10/18 12:08 Consultations 05/10/18 13:46 ED Decision to Admit Stat 05/10/18 16:47 Consult Cardiology Routine Consult Case Management - Discharge Planning Routine 05/10/18 20:26 Consult Orthopedic Surgery Routine Procedures Performed CT head: Chronic small vessel ischemic change. No acute intracranial abnormality. KUB: No evidence of pathologic bowel dilatation Gall Bladder uSD: 1. Ultrasonographically normal gallbladder. No evidence of ductal dilatation 2. Very subtle nodular contour of the liver, raising the possibility of cirrhosis.. Lumbar CT: 1. Redemonstration of the subacute to subacute L1 compression fracture demonstrating 50% loss of height centrally. There is 4 mm of retropulsion of the posterior superior corner without significant central canal narrowing. Paravertebral edema favors posttraumatic change. 2. There is a vertebral body hemangioma within the mid L1 vertebral body. Therefore, by definition this is consistent with a pathologic compression fracture. 3. Degenerative changes as described above. CTA: 1. No pulmonary emboli identified although segmental and subsegmental pulmonary arteries within the lower lobes suboptimally assessed given respiratory motion. 2. Moderate pulmonary edema. Moderate right and small left pleural effusions which have increased since CT of May 06, 2018. 3. Moderate cardiomegaly with significant dilatation of the right heart chambers and the IVC and hepatic veins with reflux of contrast which suggests right heart dysfunction. 4. Mild dilatation of the ascending aorta, measuring 4.4 cm at the level the main pulmonary artery. 5. Acute moderate L1 compression fracture with 3 mm of retropulsion. Increase in paravertebral infiltration/hemorrhage since CT of May 06, 2018. Ordered Studies 05/10/18 11:19 CT angio chest PE protocol Stat 05/11/18 12:04 CT lumbar spine wo con Routine 05/13/18 10:26 US gallbladder Routine 05/15/18 09:40 CT head/brain wo con Urgent Hospital Course (1) CHF (congestive heart failure): Acute on chronic diastolic and right-sided heart failure. --S/P bioprosthetic aortic valve replacement --ECHO: Suggestive of Normal LV function; flattened intraventricular septum in systole consistent with RV pressure overload; type 3 diastolic dysfunction; marked biatrial and RV dilation with preserved RV function. --CT suggestive of Moderate pulmonary edema. Moderate right and small left pleural effusions --Given IV lasix 40mg daily >>Transition to PO lasix --Appreciate Cardiology Input --Monitor electrolytes, daily weight, I/Os --Saturating well on room air --Monitor volume status --Continue home diuretics --Waiting for placement, Plan to discharge once accepted to SNF --Volume status improved Pleural effusion: Secondary to above Continue diuretics Abdominal Pain: --CT ABD: Moderate L1 compression fracture with minimal retropulsion. This fracture is acute to subacute. Extensive colonic diverticulosis without evidence for acute diverticulitis. Redundant sigmoid colon with mild dilatation. No evidence for a volvulus. Trace pericholecystic fluid, a nonspecific finding. If persistent right upper quadrant pain, an ultrasound could be obtained. No gallbladder distention. Liver nodularity. This suggests cirrhosis, potentially on the basis of right heart dysfunction given the additional findings. Small right pleural effusion. --Normal lipase --ABD USD/KUB: No acute process --Continue Bowel regimen Confusion DD: Delirium/Metabolic encephalopathy CT head:Chronic small vessel ischemic change. No acute intracranial abnormality. Could have underlying dementia Reorient frequently Bradycardia:Resolved Decreased Diltiazem and Metoprolol dose initially Continue Metoprolol, Diltiazem Appreciate Cardiology Input Hypoxia: Resolved Secondary to CHF/pleural effusions CTA: No PE Saturating well on room air AAA: 4.4 cm at the level of main pulmonary artery noted on CT Needs FU as outpatient Compression fracture of L1 vertebra: Lumbar CT suggestive of pathologic compression fracture. Appreciate Orthopedics Input Conservative management Pain control PT/OT Needs FU with Ortho upon discharge Hypokalemia: Replace electrolytes as needed Atrial fibrillation: Not on anticoagulation secondary to H/O ICH and frequent falls Continue metoprolol, diltiazem HTN: Stable Continue home medications Depression: Continue Sertraline Dyslipidemia: Continue statin DVT Px: SCDs Code Status DNR Disposition: Needs SNF placement Plan to discharge when accepted at rehab facility Discharge Plan Discharge Items Patient Disposition: Transfer Assisted Fac Reason For Visit: CHF Discharge Diagnosis: Acute diastolic CHF exacerbation Metabolic encephalopathy Compression fracture of L1 vertebra Discharge Goals: Decrease discomfort, Improve disease control and Improve function Activity: Resume your previous activity Exercise/Sports: Gradually increase as tolerated Non-emergency contact: Primary Care Provider, Surgeon and Cardiology Nurse Practitioner Call non-emergency contact if: you have any medication questions, your symptoms worsen, your pain is not controlled, your pain is worsening, your pain is unusual for you, your pain is concerning for you and you have a fever Diet: Heart Healthy Addtl Provider Instructions: Follow up with your Primary Care Physician in 1 week after being discharged from Rehab Facility Follow up with your Cardiology Nurse Practitioner in 2-4 weeks Follow up with your Orthopedic Surgeon in 2 weeks. Please for appointment Discuss with your Physician regarding Incidental findings of Cirrhosis and Abdominal aortic anuerysm noted on CT scan for further evaluation Seek immediate medical attention if your symptoms reoccur or worsen Call your Primary Care doctor if any of the following symptoms or problems start or get worse: * Shortness of breath or difficulty breathing * Wake up at night short of breath * Chest pain * Cough * Swelling of your hands, feet, or legs * More fatigued or tired with your normal activity * Palpitations - sudden fast heart beats WEIGHT * Weigh yourself every morning after using the bathroom. * Use the same scale. * Wear the same amount of clothing. * Write your weight down on a chart. * Call your Primary Care doctor if you gain more than 2-3 pounds in 1-2 days. MEDICATIONS * Use this discharge instruction sheet for medication instructions. * Take your medications at the time your doctor ordered. * Do not skip a dose of your medicines. * If you miss a dose of medicine, take it as soon as possible, but DO NOT DOUBLE A DOSE. * Read your medicine information when you get home. * Know all of the side effects of your medicine. If in doubt, ask your pharmacist * Call your Primary Care doctor's office if you have any side effects. * Be sure all of your doctors know what medicine and herbs you take (including cold, flu, and herbal medicine). Take the following with you to your follow-up doctor appointments: * Weight Chart * Medication List * List of questions Do not drink excessive alcohol, beer or wine. Prescriptions: New furosemide 40 mg Tablet 40 mg PO QAM 30 Days Qty: 30 RF: 1 baclofen 10 mg Tablet 5 mg PO BID PRN (Reason: Muscle Spasm) 3 Days Qty: 6 RF: 0 polyethylene glycol 3350 [Miralax] 17 gram Powder In Packet 17 g PO DAILY PRN (Reason: constipation) 30 Days Qty: 30 RF: 0 Continue pravastatin 40 mg Tablet 40 mg PO HS RF: 0 diltiazem HCl 240 mg Capsule,Extended Release 24 Hr 240 mg PO DAILY RF: 0 acetaminophen [Tylenol Extra Strength] 500 mg Tablet 500 mg PO Q4 PRN (Reason: mild pain/fever) RF: 0 guaifenesin [Siltussin SA] 100 mg/5 mL Liquid 10 ml PO QID PRN (Reason: Congestion) RF: 0 sertraline 25 mg Tablet 25 mg PO QAM RF: 0 metoprolol succinate [Toprol XL] 25 mg Tablet Extended Release 24 Hr 75 mg PO DAILY RF: 0 cholecalciferol (vitamin D3) [Vitamin D3] 2,000 unit Capsule 2,000 unit PO DAILY RF: 0 tramadol 50 mg tablet 50 mg PO Q6H PRN (Reason: Pain) 3 Days Qty: 10 RF: 0 Changed docusate sodium 100 mg Capsule 100 mg PO BID PRN (Reason: constipation) 30 Days Qty: 60 RF: 0 Discontinued furosemide [Lasix] 40 mg Tablet 40 mg PO 4XWK RF: 0 furosemide [Lasix] 20 mg Tablet 20 mg PO WK RF: 0 Stand-Alone Forms: My [facility] Skilled Items Patient informed of condition?: Yes DNR: Yes Discharge Level of Care: Skilled Communicable Disease: No Discharge Prognosis: Improving Admission Data Admit Date/Time: 05/10/18 15:07 Attending Provider: Lida Escudero Admit Provider: Aamir Shetty Primary Care Provider: Rohit Cardenas Other Providers: Diaz Wilkerson ; Vignesh Caraballo ; Aamir Shetty ; Grayson Huff Service: Telemetry Other Pending Studies at Discharge: No
[2018-05-16] MEDS: PRAVASTATIN SOD 40 MG TAB PO SCH (20:41)
[2018-05-17] MEDS: MoRPHine SULFATE 4 MG/ML 1 ML CARP\\VIAL IV PRN (01:52)
[2018-05-17] MEDS: ACETAMINOPHEN 325 MG TAB PO SCH ×3 (05:31→21:07)
[2018-05-17] MEDS: DOCUSATE SODIUM 100 MG CAP PO SCH ×2 (08:03→21:06)
[2018-05-17] MEDS: METOPROLOL SUCC 50MG EXT REL TAB PO SCH (08:03)
[2018-05-17] MEDS: dilTIAZem HCL 180 MG CAPCR PO SCH (08:04)
[2018-05-17] MEDS: SERTRALINE HCL 50 MG TABLET PO SCH (08:05)
[2018-05-17] MEDS: FUROSEMIDE 40 MG TAB PO SCH (08:05)
[2018-05-17] MEDS: BACLOFEN 10 MG TAB PO SCH ×2 (08:05→21:06)
[2018-05-17] MEDS ORDERED: ALBUT/IPRATROP 3MG/0.5MG NEB 3 ML VIAL NEB STA (09:15)
--- NOTE | 2018-05-17 10:04 | XRay Report ---
SINGLE VIEW CHEST CLINICAL HISTORY: Congestive heart failure. FINDINGS: 2 AP, portable, upright chest radiographs are compared to study dated 05/11/2018 and correla deonte with chest CT dated 05/10/2018. The examination is degraded by portable technique and patient rota tion. The patient is status post midline sternotomy. The heart is enlarged and there is atherosclero tic calcification of the thoracic aorta. The pulmonary vasculature is noncongested. There is bibasila r atelectasis. No large pleural effusion or pneumothorax is seen. The skeletal structures are osteope jerome. The bony thorax is grossly intact. IMPRESSION: 1. Cardiomegaly. Pulmonary vascular congestion has resolved. 2. No airspace consolidation or large pleural effusion is identified. Electronically signed by: James Olson M.D. 05/17/2018 10:03 AM
--- NOTE | 2018-05-17 10:49 | Discharge Summary ---
Date of Service May 17, 2018 Admission HPI Per Admitting Provider Primary Care Provider: PCP: Dr. Allen at [facility] 88 y/o female presents via EMS from [facility] with worsening back pain, shortness of breath and cough. Pt was seen in ED on 05/06 due to acute onset of back pain with no known injury and found to have an acute L1 compression fracture then sent back to [place]. Since then, she reports limited ambulation, spending her days in bed due to the severity of the pain. She reports pain with deep breathing so has not been taking deep breaths. Today , staff felt like she was more short of breath and her back pain was worse. They tried Tramadol for the pain with no relief. Due to pain control issue and shortness of breath with cough, she was sent to the ED for evaluation due to concern of pneumonia. In the ED, she was found to have elevated BNP, pulmonary vascular congestion and pleural effusions c/w CHF so referred for admission. At present, pt's main complaint is back pain and pain with taking a deep breath. She does note SOB with any exertion but feeling better with application of O2 in the ED. Denies fevers, chills, rhinorrhea, head congestion , sore throat, headache, dizziness. She has noted increased "skipped beats" over the past few days but denies chest pain or pressure. Notes occasional wheezing. She reports chronic issues with "fluid retention" but states this is no worse than usual. Her son, Christian, is at the bedside and assisted with the history. Over the past few days, she reports loss of appetite with associated nausea and occasional emesis. No diarrhea or constipation. Principal Diagnosis Acute diastolic CHF exacerbation Metabolic encephalopathy Compression fracture of L1 vertebra Discharge Exam Constitutional well developed, well nourished and cooperative; no acute distress Eyes PERRL, conjunctivae normal, anicteric sclerae EOM intact bilaterally ENMT external ear and nose normal, oropharynx normal Neck trachea midline Respiratory no respiratory distress, no labored breathing and does not use accessory muscles Auscultation: + crackles (fine bibasilar crackles ) and + wheezes Gastrointestinal (Abdomen) Inspection/Auscultation: normal bowel sounds Percussion/Palpation: abdomen soft; abdomen nontender and no guarding Skin no rashes, warm and dry Discharge Data Allergies Allergy/AdvReac Type Severity Reaction Status Date / Time Penicillins Allergy Severe THROAT Unverified 05/10/18 12:08 SWELLS AND RASH budesonide Allergy Unknown UNKNOWN Unverified 05/10/18 12:08 moxifloxacin Allergy Unknown UNKNOWN Unverified 05/10/18 12:08 Consultations 05/10/18 13:46 ED Decision to Admit Stat 05/10/18 16:47 Consult Cardiology Routine Consult Case Management - Discharge Planning Routine 05/10/18 20:26 Consult Orthopedic Surgery Routine Ordered Studies 05/10/18 11:19 CT angio chest PE protocol Stat 05/11/18 12:04 CT lumbar spine wo con Routine 05/13/18 10:26 US gallbladder Routine 05/15/18 09:40 CT head/brain wo con Urgent Hospital Course (1) CHF (congestive heart failure): compensated 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 --S/P bioprosthetic aortic valve replacement --ECHO: Suggestive of Normal LV function; flattened intraventricular septum in systole consistent with RV pressure overload; type 3 diastolic dysfunction; marked biatrial and RV dilation with preserved RV function. --CT suggestive of Moderate pulmonary edema. Moderate right and small left pleural effusions --Given IV lasix 40mg daily >>Transition to PO lasix 40 mg daily --Appreciate Cardiology Input -chest Xray shows ; resolution of pulmonary vascular congestion Pleural effusion: due to decompensated CHF with diastolic dysfunction resolved Cxray 05/17/18 today : IMPRESSION: 1. Cardiomegaly. Pulmonary vascular congestion has resolved. 2. No airspace consolidation or large pleural effusion is identified. pt is discharged today with Lasix 40 mg PO daily Abdominal Pain: resolved no further symptom --CT ABD: Moderate L1 compression fracture with minimal retropulsion. This fracture is acute to subacute. Extensive colonic diverticulosis without evidence for acute diverticulitis. Redundant sigmoid colon with mild dilatation. No evidence for a volvulus. Trace pericholecystic fluid, a nonspecific finding. If persistent right upper quadrant pain, an ultrasound could be obtained. No gallbladder distention. Liver nodularity. This suggests cirrhosis, potentially on the basis of right heart dysfunction given the additional findings. Small right pleural effusion. --Normal lipase --ABD USD/KUB: No acute process --Continue Bowel regimen Confusion resolved mental status to baseline alert , oriented to place , person Delirium/Metabolic encephalopathy CT head:Chronic small vessel ischemic change. No acute intracranial abnormality. Bradycardia:Resolved Continue Metoprolol, Diltiazem Appreciate Cardiology Input Hypoxia: Resolved after adequate diuresis Secondary to CHF/pleural effusions in room air not requiring supplemental 02 CTA: No PE Saturating well on room air AAA: 4.4 cm at the level of main pulmonary artery noted on CT Needs FU as outpatient Compression fracture of L1 vertebra: Lumbar CT suggestive of pathologic compression fracture. Appreciate Orthopedics Input Conservative management Pain control PT/OT Needs FU with Ortho upon discharge Hypokalemia: Replace electrolytes as needed Atrial fibrillation: Not on anticoagulation secondary to H/O ICH and frequent falls Continue metoprolol, diltiazem HTN: Stable Continue home medications Depression: Continue Sertraline Dyslipidemia: Continue statin DVT Px: SCDs Code Status DNR Disposition: needs SNF accepted at [facility] stable to be transferred to [facility] for rehab Total Time Total Time Spent Total Time Spent (In Minutes): approx 35 mins Total Time Includes: Examination of the Patient, Discharge Planning and Medication Reconciliation Discharge Plan Discharge Items Patient Disposition: Transfer Residential Fac Reason For Visit: CHF Discharge Diagnosis: Acute diastolic CHF exacerbation Metabolic encephalopathy Compression fracture of L1 vertebra Discharge Goals: Decrease discomfort, Improve disease control and Improve function Activity: Resume your previous activity Exercise/Sports: Gradually increase as tolerated Non-emergency contact: Primary Care Provider, Surgeon and Post Office Clerk Call non-emergency contact if: you have any medication questions, your symptoms worsen, your pain is not controlled, your pain is worsening, your pain is unusual for you, your pain is concerning for you and you have a fever Diet: Heart Healthy Addtl Provider Instructions: Follow up with your Primary Care Physician in 1 week after being discharged from Rehab Facility Follow up with your Post Office Clerk in 2-4 weeks Follow up with your Orthopedic Surgeon in 2 weeks. Please for appointment Discuss with your Physician regarding Incidental findings of Cirrhosis and Abdominal aortic anuerysm noted on CT scan for further evaluation Seek immediate medical attention if your symptoms reoccur or worsen Call your Primary Care doctor if any of the following symptoms or problems start or get worse: * Shortness of breath or difficulty breathing * Wake up at night short of breath * Chest pain * Cough * Swelling of your hands, feet, or legs * More fatigued or tired with your normal activity * Palpitations - sudden fast heart beats WEIGHT * Weigh yourself every morning after using the bathroom. * Use the same scale. * Wear the same amount of clothing. * Write your weight down on a chart. * Call your Primary Care doctor if you gain more than 2-3 pounds in 1-2 days. MEDICATIONS * Use this discharge instruction sheet for medication instructions. * Take your medications at the time your doctor ordered. * Do not skip a dose of your medicines. * If you miss a dose of medicine, take it as soon as possible, but DO NOT DOUBLE A DOSE. * Read your medicine information when you get home. * Know all of the side effects of your medicine. If in doubt, ask your pharmacist * Call your Primary Care doctor's office if you have any side effects. * Be sure all of your doctors know what medicine and herbs you take (including cold, flu, and herbal medicine). Take the following with you to your follow-up doctor appointments: * Weight Chart * Medication List * List of questions Do not drink excessive alcohol, beer or wine. Call your Primary Care doctor if any of the following symptoms or problems start or get worse: * Shortness of breath or difficulty breathing * Wake up at night short of breath * Chest pain * Cough * Swelling of your hands, feet, or legs * More fatigued or tired with your normal activity * Palpitations - sudden fast heart beats WEIGHT * Weigh yourself every morning after using the bathroom. * Use the same scale. * Wear the same amount of clothing. * Write your weight down on a chart. * Call your Primary Care doctor if you gain more than 2-3 pounds in 1-2 days. MEDICATIONS * Use this discharge instruction sheet for medication instructions. * Take your medications at the time your doctor ordered. * Do not skip a dose of your medicines. * If you miss a dose of medicine, take it as soon as possible, but DO NOT DOUBLE A DOSE. * Read your medicine information when you get home. * Know all of the side effects of your medicine. If in doubt, ask your pharmacist * Call your Primary Care doctor's office if you have any side effects. * Be sure all of your doctors know what medicine and herbs you take (including cold, flu, and herbal medicine). Take the following with you to your follow-up doctor appointments: * Weight Chart * Medication List * List of questions Do not drink excessive alcohol, beer or wine. Prescriptions: New furosemide 40 mg Tablet 40 mg PO QAM 30 Days Qty: 30 RF: 1 baclofen 10 mg Tablet 5 mg PO BID PRN (Reason: Muscle Spasm) 3 Days Qty: 6 RF: 0 polyethylene glycol 3350 [Miralax] 17 gram Powder In Packet 17 g PO DAILY PRN (Reason: constipation) 30 Days Qty: 30 RF: 0 tramadol 50 mg Tablet 25 mg PO Q8H PRN (Reason: pain) 3 Days Qty: 10 RF: 0 Continue pravastatin 40 mg Tablet 40 mg PO HS RF: 0 diltiazem HCl 240 mg Capsule,Extended Release 24 Hr 240 mg PO DAILY RF: 0 acetaminophen [Tylenol Extra Strength] 500 mg Tablet 500 mg PO Q4 PRN (Reason: mild pain/fever) RF: 0 guaifenesin [Siltussin SA] 100 mg/5 mL Liquid 10 ml PO QID PRN (Reason: Congestion) RF: 0 sertraline 25 mg Tablet 25 mg PO QAM RF: 0 metoprolol succinate [Toprol XL] 25 mg Tablet Extended Release 24 Hr 75 mg PO DAILY RF: 0 cholecalciferol (vitamin D3) [Vitamin D3] 2,000 unit Capsule 2,000 unit PO DAILY RF: 0 Changed docusate sodium 100 mg Capsule 100 mg PO BID PRN (Reason: constipation) 30 Days Qty: 60 RF: 0 Discontinued furosemide [Lasix] 40 mg Tablet 40 mg PO 4XWK RF: 0 furosemide [Lasix] 20 mg Tablet 20 mg PO WK RF: 0 tramadol 50 mg tablet 50 mg PO Q6H PRN (Reason: Pain) RF: 0 Stand-Alone Forms: [facility] Discharge Orders: Discharge Order (Routine); Ordered 05/17/18 Ordered By: Lida Escudero Skilled Items Patient informed of condition?: Yes DNR: Yes Discharge Level of Care: Skilled Communicable Disease: No Discharge Prognosis: Improving Admission Data Admit Date/Time: 05/10/18 15:07 Attending Provider: Lida Escudero Admit Provider: Aamir Shetty Primary Care Provider: Rohit Cardenas Other Providers: Diaz Wilkerson ; Vignesh Caraballo ; Aamir Shetty ; Grayson Huff Service: Telemetry Other Pending Studies at Discharge: No
--- NOTE | 2018-05-17 17:54 | Hospitalist Progress Note ---
Date of Service May 17, 2018 Subjective Patient was scheduled to be transferred to [facility] today around 3 PM Wheelchair van was arranged for pickup Patient was unable to get up on bed/per nursing, it required 3 people just to have a nurse stay seated on the edge of the bed, but could not bear any weight even with walker assistance to pivot and transfer to wheelchair Skilled rehab transfer was canceled Patient was seen at bedside, states that she is too scared to fall to attempt to get up or stand up Denies of any back pain, no complaint of knee on leg pain No hypoxia, breathing in room air No shortness of breath or dyspnea on exertion noted She is afebrile, no cough Noted to have significant functional decline with severe ambulatory dysfunction, 2-3 person assist for transfer Will have repeat PT OT evaluation tomorrow Do not feel patient is medically stable to be transferred to skilled rehab Patient's son Christian olvera cell phone number [phone] updated In agreement with plan Physical Exam 2 Vital Signs (Past 24 Hours): Last Vital Signs Temp 36.6 C 05/17/18 15:01 Pulse 77 05/17/18 15:01 Resp 16 05/17/18 15:01 BP 106/67 05/17/18 15:01 Pulse Ox 92 05/17/18 15:01
[2018-05-17] MEDS: PRAVASTATIN SOD 40 MG TAB PO SCH (21:07)
[2018-05-18] MEDS: POLYETHYLENE (MIRALAX) 17 GM PACK PO PRN (05:58)
[2018-05-18] MEDS: ACETAMINOPHEN 325 MG TAB PO SCH (06:00)
[2018-05-18] MEDS: DOCUSATE SODIUM 100 MG CAP PO SCH (09:51)
[2018-05-18] MEDS: dilTIAZem HCL 180 MG CAPCR PO SCH (09:51)
[2018-05-18] MEDS: METOPROLOL SUCC 50MG EXT REL TAB PO SCH (09:52)
[2018-05-18] MEDS: BACLOFEN 10 MG TAB PO SCH (09:52)
[2018-05-18] MEDS: SERTRALINE HCL 50 MG TABLET PO SCH (09:53)
--- NOTE | 2018-05-18 11:28 | Discharge Summary ---
Date of Service May 18, 2018 Admission HPI Per Admitting Provider Primary Care Provider: PCP: Dr. Allen at [facility] 88 y/o female presents via EMS from [facility] with worsening back pain, shortness of breath and cough. Pt was seen in ED on 05/06 due to acute onset of back pain with no known injury and found to have an acute L1 compression fracture then sent back to [place]. Since then, she reports limited ambulation, spending her days in bed due to the severity of the pain. She reports pain with deep breathing so has not been taking deep breaths. Today , staff felt like she was more short of breath and her back pain was worse. They tried Tramadol for the pain with no relief. Due to pain control issue and shortness of breath with cough, she was sent to the ED for evaluation due to concern of pneumonia. In the ED, she was found to have elevated BNP, pulmonary vascular congestion and pleural effusions c/w CHF so referred for admission. At present, pt's main complaint is back pain and pain with taking a deep breath. She does note SOB with any exertion but feeling better with application of O2 in the ED. Denies fevers, chills, rhinorrhea, head congestion , sore throat, headache, dizziness. She has noted increased "skipped beats" over the past few days but denies chest pain or pressure. Notes occasional wheezing. She reports chronic issues with "fluid retention" but states this is no worse than usual. Her son, Christian, is at the bedside and assisted with the history. Over the past few days, she reports loss of appetite with associated nausea and occasional emesis. No diarrhea or constipation. Principal Diagnosis Acute diastolic CHF exacerbation Metabolic encephalopathy Compression fracture of L1 vertebra Discharge Exam Constitutional well developed, well nourished and cooperative; no acute distress Eyes PERRL, conjunctivae normal, anicteric sclerae EOM intact bilaterally ENMT external ear and nose normal, oropharynx normal Neck trachea midline Respiratory no respiratory distress, no labored breathing and does not use accessory muscles Auscultation: + crackles (fine bibasilar crackles ) and + wheezes Gastrointestinal (Abdomen) Inspection/Auscultation: normal bowel sounds Percussion/Palpation: abdomen soft and + tympanic to percussion; abdomen nontender and no guarding Skin no rashes, warm and dry Discharge Data Allergies Allergy/AdvReac Type Severity Reaction Status Date / Time Penicillins Allergy Severe THROAT Unverified 05/10/18 12:08 SWELLS AND RASH budesonide Allergy Unknown UNKNOWN Unverified 05/10/18 12:08 moxifloxacin Allergy Unknown UNKNOWN Unverified 05/10/18 12:08 Consultations 05/10/18 13:46 ED Decision to Admit Stat 05/10/18 16:47 Consult Cardiology Routine Consult Case Management - Discharge Planning Routine 05/10/18 20:26 Consult Orthopedic Surgery Routine Ordered Studies 05/10/18 11:19 CT angio chest PE protocol Stat 05/11/18 12:04 CT lumbar spine wo con Routine 05/13/18 10:26 US gallbladder Routine 05/15/18 09:40 CT head/brain wo con Urgent Hospital Course (1) CHF (congestive heart failure): compensated 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 --S/P bioprosthetic aortic valve replacement --ECHO: Suggestive of Normal LV function; flattened intraventricular septum in systole consistent with RV pressure overload; type 3 diastolic dysfunction; marked biatrial and RV dilation with preserved RV function. --CT suggestive of Moderate pulmonary edema. Moderate right and small left pleural effusions --Given IV lasix 40mg daily >>Transition to PO lasix 40 mg daily --Appreciate Cardiology Input -chest Xray shows ; resolution of pulmonary vascular congestion Pleural effusion: due to decompensated CHF with diastolic dysfunction resolved Cxray 05/17/18 today : IMPRESSION: 1. Cardiomegaly. Pulmonary vascular congestion has resolved. 2. No airspace consolidation or large pleural effusion is identified. pt Will be discharged today with Lasix 40 mg PO daily Abdominal Pain: resolved no further symptom --CT ABD: Moderate L1 compression fracture with minimal retropulsion. This fracture is acute to subacute. Extensive colonic diverticulosis without evidence for acute diverticulitis. Redundant sigmoid colon with mild dilatation. No evidence for a volvulus. Trace pericholecystic fluid, a nonspecific finding. If persistent right upper quadrant pain, an ultrasound could be obtained. No gallbladder distention. Liver nodularity. This suggests cirrhosis, potentially on the basis of right heart dysfunction given the additional findings. Small right pleural effusion. --Normal lipase --ABD USD/KUB: No acute process --Continue Bowel regimen Confusion resolved mental status to baseline alert , oriented to place , person Delirium/Metabolic encephalopathy CT head:Chronic small vessel ischemic change. No acute intracranial abnormality. Bradycardia:Resolved Continue Metoprolol, Diltiazem Appreciate Cardiology Input Hypoxia: Resolved after adequate diuresis Secondary to CHF/pleural effusions in room air not requiring supplemental 02 CTA: No PE Saturating well on room air AAA: 4.4 cm at the level of main pulmonary artery noted on CT Needs FU as outpatient Compression fracture of L1 vertebra: Lumbar CT suggestive of pathologic compression fracture. Appreciate Orthopedics Input Conservative management Pain control PT/OT Needs FU with Ortho upon discharge Hypokalemia: Replace electrolytes as needed Atrial fibrillation: Not on anticoagulation secondary to H/O ICH and frequent falls Continue metoprolol, diltiazem HTN: Stable Continue home medications Depression: Continue Sertraline Dyslipidemia: Continue statin DVT Px: SCDs Code Status DNR Disposition: needs SNF accepted at [facility] stable to be transferred to [facility] for rehab Total Time Total Time Spent Total Time Spent (In Minutes): Approximate 35 minutes Total Time Includes: Discharge Planning and Medication Reconciliation Discharge Plan Discharge Items Patient Disposition: Transfer [facility] Reason For Visit: CHF Discharge Diagnosis: Acute diastolic CHF exacerbation Metabolic encephalopathy Compression fracture of L1 vertebra Discharge Goals: Decrease discomfort, Improve disease control and Improve function Activity: Resume your previous activity Exercise/Sports: Gradually increase as tolerated Non-emergency contact: Primary Care Provider, Surgeon and Cartridge Loader Call non-emergency contact if: you have any medication questions, your symptoms worsen, your pain is not controlled, your pain is worsening, your pain is unusual for you, your pain is concerning for you and you have a fever Diet: Heart Healthy Add Provider Instructions: Follow up with your Primary Care Physician in 1 week after being discharged from Rehab Facility Follow up with your Cartridge Loader in 2-4 weeks Follow up with your Orthopedic Surgeon in 2 weeks. Please for appointment Discuss with your Physician regarding Incidental findings of Cirrhosis and Abdominal aortic anuerysm noted on CT scan for further evaluation Seek immediate medical attention if your symptoms reoccur or worsen Call your Primary Care doctor if any of the following symptoms or problems start or get worse: * Shortness of breath or difficulty breathing * Wake up at night short of breath * Chest pain * Cough * Swelling of your hands, feet, or legs * More fatigued or tired with your normal activity * Palpitations - sudden fast heart beats WEIGHT * Weigh yourself every morning after using the bathroom. * Use the same scale. * Wear the same amount of clothing. * Write your weight down on a chart. * Call your Primary Care doctor if you gain more than 2-3 pounds in 1-2 days. MEDICATIONS * Use this discharge instruction sheet for medication instructions. * Take your medications at the time your doctor ordered. * Do not skip a dose of your medicines. * If you miss a dose of medicine, take it as soon as possible, but DO NOT DOUBLE A DOSE. * Read your medicine information when you get home. * Know all of the side effects of your medicine. If in doubt, ask your pharmacist * Call your Primary Care doctor's office if you have any side effects. * Be sure all of your doctors know what medicine and herbs you take (including cold, flu, and herbal medicine). Take the following with you to your follow-up doctor appointments: * Weight Chart * Medication List * List of questions Do not drink excessive alcohol, beer or wine. Call your Primary Care doctor if any of the following symptoms or problems start or get worse: * Shortness of breath or difficulty breathing * Wake up at night short of breath * Chest pain * Cough * Swelling of your hands, feet, or legs * More fatigued or tired with your normal activity * Palpitations - sudden fast heart beats WEIGHT * Weigh yourself every morning after using the bathroom. * Use the same scale. * Wear the same amount of clothing. * Write your weight down on a chart. * Call your Primary Care doctor if you gain more than 2-3 pounds in 1-2 days. MEDICATIONS * Use this discharge instruction sheet for medication instructions. * Take your medications at the time your doctor ordered. * Do not skip a dose of your medicines. * If you miss a dose of medicine, take it as soon as possible, but DO NOT DOUBLE A DOSE. * Read your medicine information when you get home. * Know all of the side effects of your medicine. If in doubt, ask your pharmacist * Call your Primary Care doctor's office if you have any side effects. * Be sure all of your doctors know what medicine and herbs you take (including cold, flu, and herbal medicine). Take the following with you to your follow-up doctor appointments: * Weight Chart * Medication List * List of questions Do not drink excessive alcohol, beer or wine. Prescriptions: New furosemide 40 mg Tablet 40 mg PO QAM 30 Days Qty: 30 RF: 1 polyethylene glycol 3350 [Miralax] 17 gram Powder In Packet 17 g PO DAILY PRN (Reason: constipation) 30 Days Qty: 30 RF: 0 Continue pravastatin 40 mg Tablet 40 mg PO HS RF: 0 diltiazem HCl 240 mg Capsule,Extended Release 24 Hr 240 mg PO DAILY RF: 0 acetaminophen [Tylenol Extra Strength] 500 mg Tablet 500 mg PO Q4 PRN (Reason: mild pain/fever) RF: 0 guaifenesin [Siltussin SA] 100 mg/5 mL Liquid 10 ml PO QID PRN (Reason: Congestion) RF: 0 sertraline 25 mg Tablet 25 mg PO QAM RF: 0 metoprolol succinate [Toprol XL] 25 mg Tablet Extended Release 24 Hr 75 mg PO DAILY RF: 0 cholecalciferol (vitamin D3) [Vitamin D3] 2,000 unit Capsule 2,000 unit PO DAILY RF: 0 Changed docusate sodium 100 mg Capsule 100 mg PO BID PRN (Reason: constipation) 30 Days Qty: 60 RF: 0 Discontinued furosemide [Lasix] 40 mg Tablet 40 mg PO 4XWK RF: 0 furosemide [Lasix] 20 mg Tablet 20 mg PO WK RF: 0 tramadol 50 mg tablet 50 mg PO Q6H PRN (Reason: Pain) RF: 0 Stand-Alone Forms: [facility] Discharge Orders: Discharge Order (Routine); Ordered 05/18/18 Ordered By: Lida Escudero Skilled Items Patient informed of condition?: Yes DNR: Yes Discharge Level of Care: Skilled Communicable Disease: No Discharge Prognosis: Improving Admission Data Admit Date/Time: 05/10/18 15:07 Attending Provider: Lida Escudero Admit Provider: Aamir Shetty Primary Care Provider: Rohit Cardenas Other Providers: Grayson Huff ; Aamir Shetty ; Vignesh Caraballo ; Diaz Wilkerson Service: Medical Other Interventions: Discharge Summary Assessment (RN) Last Done: 05/18/18 12:52 Pending Studies at Discharge: No DC Date/Time DO NOT enter until pt leaves facility: 05/18/18 14:33
[2018-05-18] MEDS ORDERED: BISACODYL 10 MG SUPP PR STA (11:33)
[2018-05-18] MEDS ORDERED: BISACODYL 10 MG SUPP PR ONE (11:38)
[2018-05-18] MEDS: FUROSEMIDE 40 MG TAB PO SCH (11:56)
== END 2018-05-18 14:33 | DRG 291 ==
LOC: ED 09:30 → SUATTDRO 15:07 → 2E 15:07 → 2N 05-17 17:32

== ENCOUNTER 2018-08-24 10:44 | Inpatient (IN) ==
[2018-08-24 11:20] LABS: Alanine Aminotransferase 13 U/L (12-78); Albumin Level 3.3 gm/dl (3.4-5.0); Aspartate Aminotransferase 16 U/L (15-37); BUN Creatinine Ratio 20.2 (10-20); Blood Urea Nitrogen 17 mg/dl (7-18); Calcium 9.1 mg/dl (8.5-10.1); Carbon Dioxide 30 mmol/L (21-32); Chloride 104 mmol/L (98-107); Creatinine Clr Calc Pharmacy 50.2 ml/min; Glucose 98 mg/dl (70-99); Potassium 3.6 mmol/L (3.5-5.1); Sodium 139 mmol/L (136-145)
[2018-08-24 11:25] LABS: Albumin Globulin Ratio 0.7 (0.9-2); Alkaline Phosphatase 126 U/L (45-117); Bilirubin,Total 0.8 mg/dl (0.2-1); Globulin 4.8 gm/dl (2.5-4.0); Total Protein 8.1 gm/dl (6.4-8.2); Troponin I < 0.015 ng/ml (0-0.045)
[2018-08-24 11:26] LABS: INR 1.1 (0.9-1.1); Partial Thromboplastin Ratio 1.1; Partial Thromboplastin Time 29.8 Seconds (21.0-31.0); Prothrombin Time 11.3 Seconds (9.0-12.0)
--- NOTE | 2018-08-24 11:30 | XRay Report ---
XR chest 1V portable CLINICAL HISTORY: Shortness of Breath COMPARISON STUDY: Chest CT May 10, 2018. Chest radiograph July 22, 2018. FINDINGS: There are median sternotomy wires. Marked cardiomegaly is unchanged. Small right pleural ef fusion is noted. Interstitial thickening reflect pulmonary edema. Mild right basilar opacity is prese nt. IMPRESSION: Interval development of mild pulmonary edema and a small right pleural effusion. Electronically signed by: Andre Barrett M.D. 08/24/2018 11:29 AM
[2018-08-24 11:32] LABS: Basophils # (auto) 0.02 K/uL (0-0.2); Basophils % (auto) 0.3 %; Eosinophils # (auto) 0.19 K/uL (0-0.5); Eosinophils % (auto) 2.6 %; Hematocrit (blood only) 38.4 % (37-47); Hemoglobin 12.7 g/dL (12.0-16.0); Immature Granulocytes # (auto) 0.02 K/uL (0.00-0.02); Immature Granulocytes % (auto) 0.3 %; Lymphocytes # (auto) 1.59 K/uL (1.2-3.4); Lymphocytes % (auto) 21.6 %; Mean Corpuscular Hgb Conc 33.1 g/dL (32-36); Mean Corpuscular Volume 95.8 fL (80-100); Mean Platelet Volume 9.5 fL (7.4-10.4); Monocytes # (auto) 0.86 K/uL (0.11-0.59); Monocytes % (auto) 11.7 %; Neutrophils # (auto) 4.68 K/uL (1.4-6.5); Neutrophils % (auto) 63.5 %; Platelet Count 170 K/uL (130-400); RDW Coefficient of Variation 16.2 % (11.5-14.5); RDW Standard Deviation 56.9 fL (36.4-46.3); Red Blood Count 4.01 M/uL (4.2-5.4); White Blood Count 7.36 K/uL (4.8-10.8)
[2018-08-24] MEDS ORDERED: FUROSEMIDE 40 MG/4 ML VIAL IV STA (11:55)
--- NOTE | 2018-08-24 12:28 | History & Physical Report ---
Date of Service August 24, 2018 Assessment & Plan (1) CHF (congestive heart failure): (2) Pleural effusion: (3) Hypoxia: History of Present Illness Chief Complaint: Shortness of breath Primary Care Provider: [facility] 88 y/o female with a PMH of CHF, prior ICH, atrial fibrillation, depression, dyslipidemia, hypertension, and lumbar compression fracture presents to the ED today from [facility] with lower extremity edema and dyspnea. She reports the edema has been progressive in bilateral LE for past few weeks - no calf pain or associated discomfort. May have joint pains depending on the weather. More short of breath over past week, especially with exertion. +orthopnea - sleeping in reclining chair. For past week has felt fatigued and generally weak - some days has trouble even walking with her walker. Using a wheelchair if going any more than a few steps. She notes a cough (non- productive) and wheezing for past few days - seems worse at night. No PND. No fevers, chills, sweats. No chest pain or palpitations but has episodes of "shaking" in substernal/epigastric area. No nausea, vomiting, abdominal pain. Appetite is decreased. Moving bowels at baseline with medications prn. Urinating okay. Had UTI last month - took antibiotics and feels like symptoms are resolved. Occasional headache. Prior hx of migraines but none recently. Off balance on occasion - doesn't seem significantly worse over past few weeks. Last fall was in June - none this month. No lower back pain at present. Persistent swelling in left lateral hand since this fall. Hand may become painful if she uses it (like if she uses her walker) - hasn't been able to knit since the fall. Does not recall having x-ray of hand since the fall. Allergies Allergy/AdvReac Type Severity Reaction Status Date / Time Penicillins Allergy Severe THROAT Unverified 08/24/18 11:59 SWELLS AND RASH budesonide Allergy Unknown UNKNOWN Unverified 08/24/18 11:59 moxifloxacin Allergy Unknown UNKNOWN Unverified 08/24/18 11:59 Home Medications Home Medications Medication Instructions Recorded Confirmed Type acetaminophen [Tylenol Extra 500 mg PO Q4H PRN 05/06/18 08/24/18 History Strength] cholecalciferol (vitamin D3) 2,000 unit PO QAM 05/06/18 08/24/18 History [Vitamin D3] diltiazem HCl 240 mg PO QAM 05/06/18 08/24/18 History guaifenesin [Siltussin SA] 10 ml PO QID PRN 05/06/18 08/24/18 History metoprolol succinate [Toprol XL] 75 mg PO QAM 05/06/18 08/24/18 History pravastatin 40 mg PO HS 05/06/18 08/24/18 History sertraline 25 mg PO QAM 05/06/18 08/24/18 History baclofen 5 mg PO TID 07/22/18 08/24/18 History nystatin 1 applic TOPICAL BID 07/22/18 08/24/18 History polyethylene glycol 3350 [Miralax] 17 g PO QAM 07/22/18 08/24/18 History potassium chloride 20 meq PO QAM 07/22/18 08/24/18 History tramadol 25 mg PO Q8H PRN 07/22/18 08/24/18 History acetaminophen 500 mg PO TID 08/24/18 08/24/18 History furosemide 60 mg PO QAM 08/24/18 08/24/18 History oxycodone 5 mg PO QAM 08/24/18 08/24/18 History Past Med/Surg History Family History Other Family history non-contributory Social History Preferred Language: Uzbek Communication Ability: Effective Relay Mechanic Required: No Beliefs That Will Affect Care: None marital status: / Current Living Situation: Personal Care Facility Other Information That Helps Us Care for You: No Feels Safe at Home: Yes Safety Concerns: Feels Safe At This Time Smoking Status: Former smoker Do You Dip or Chew Tobacco: No Smoking End Date: 1977 Second Hand Exposure: No Tobacco Cessation Education Requested by Patient: No Hx Alcohol Use: Yes Alcohol type: wine Hx Substance Use: No Review of Systems Review of Systems: All systems reviewed & are unremarkable except as noted in HPI & below Constitutional: + fatigue, + weakness and + anorexia; no fever, no chills and no sweats Eyes: no diplopia and no worsening vision Ear, Nose, Mouth, Throat: no nasal congestion, no nasal discharge and no sore throat Respiratory: + cough, + dyspnea, + dyspnea on exertion and + wheezing; no hemoptysis Cardiovascular: + dyspnea on exertion, + orthopnea and + edema; no chest pain, no paroxysmal nocturnal dyspnea, no palpitations, no syncope and no calf pain Gastrointestinal: no abdominal pain, no nausea, no vomiting, no dysphagia, no constipation, no diarrhea/loose stools and no blood in stools Genitourinary: no dysuria, no urinary frequency, no urinary urgency and no hematuria Musculoskeletal: + joint pain and + swelling; no back pain and no body aches Integumentary: + dry skin (at times); no rash and no skin ulcer Neurologic: + dizziness (occasional) and + headache(s) (occasional); no tingling, no numbness and no syncope Endocrine: no polydipsia, no polyphagia and no polyuria Physical Exam Constitutional: no acute distress frail-appearing Eyes: PERRL, conjunctivae normal, anicteric sclerae ENMT: external ear and nose normal, oropharynx normal Neck: trachea midline Respiratory: + labored breathing (mildly); no respiratory distress and does not use accessory muscles Auscultation: + crackles (throughout but worse at bases); no wheezes Cardiovascular: Rate/Rhythm: + irregularly irregular Heart Sounds: no gallop and no cardiac rub Vessels: + JVD Extremities: + edema (3+ to distal thigh - left slightly greater than right); no calf tenderness Gastrointestinal (Abdomen): Inspection/Auscultation: normal bowel sounds Percussion/Palpation: abdomen soft; abdomen nontender and no guarding Musculoskeletal: Head/Neck/Chest: normocephalic and head atraumatic Extremities: + hand abnormality (mild edema/tenderness along 4th & 5th metacarpal area - smearer strength 5/5) Left; no cyanosis and no clubbing Skin: no rashes, warm and dry no jaundice Neurologic: moves all extremities Speech / Cognition: normal speech Psychiatric: A+Ox3, euthymic affect Results & Data Vital Signs (Past 12 Hours) Vital Signs Temp Pulse Pulse Resp BP BP Pulse Ox 08/24/18 12:16 74 18 124/59 L 96 08/24/18 10:52 88 L 08/24/18 10:49 36.8 C 83 26 H 96/83 L 88 L Laboratory Results Laboratory Results - last 24 hr 08/24/18 08/24/1819 10:30 10:30 10:30 WBC 7.36 RBC 4.01 L Hgb 12.7 Hct 38.4 MCV 95.8 MCH 31.7 MCHC 33.1 RDW Std Deviation 56.9 H RDW Coeff of Smiley 16.2 H Plt Count 170 MPV 9.5 Immature Gran % (Auto) 0.3 Neut % (Auto) 63.5 Lymph % (Auto) 21.6 Glades % (Auto) 11.7 Eos % (Auto) 2.6 Baso % (Auto) 0.3 Immature Gran # (Auto) 0.02 Neut # (Auto) 4.68 Lymph # (Auto) 1.59 Glades # (Auto) 0.86 H Eos # (Auto) 0.19 Baso # (Auto) 0.02 PT 11.3 INR 1.1 APTT 29.8 PTT Ratio 1.1 Sodium 139 Potassium 3.6 Chloride 104 Carbon Dioxide 30 Anion Gap 5.0 BUN 17 Creatinine 0.83 Est Cr Clr Drug Dosing 50.2 Est GFR ( Amer) 73.0 Est GFR (Non-Af Amer) 63.0 BUN/Creatinine Ratio 20.2 H Glucose 98 Calcium 9.1 Total Bilirubin 0.8 AST 16 ALT 13 Alkaline Phosphatase 126 H Troponin I < 0.015 NT-Pro-B Natriuret Pep Total Protein 8.1 Albumin 3.3 L Globulin 4.8 H Albumin/Globulin Ratio 0.7 L 08/24/18 10:30 WBC RBC Hgb Hct MCV MCH MCHC RDW Std Deviation RDW Coeff of Smiley Plt Count MPV Immature Gran % (Auto) Neut % (Auto) Lymph % (Auto) Glades % (Auto) Eos % (Auto) Baso % (Auto) Immature Gran # (Auto) Neut # (Auto) Lymph # (Auto) Glades # (Auto) Eos # (Auto) Baso # (Auto) PT INR APTT PTT Ratio Sodium Potassium Chloride Carbon Dioxide Anion Gap BUN Creatinine Est Cr Clr Drug Dosing Est GFR ( Amer) Est GFR (Non-Af Amer) BUN/Creatinine Ratio Glucose Calcium Total Bilirubin AST ALT Alkaline Phosphatase Troponin I NT-Pro-B Natriuret Pep 3156 H Total Protein Albumin Globulin Albumin/Globulin Ratio Medications Administered Discontinued Medications Furosemide (Lasix) 40 mg IV NOW STA Stop: 08/24/18 11:56 Last Admin: 08/24/18 12:16 Dose: 40 mg Documented by: [id number] Code Status & VTE Plan Code Status Discussed with patient - she requests to be DNR/DNI. VTE Prophylaxis Plan VTE Prophylaxis will be ordered: Yes Supervising Physician Co-Signing Physician Notes Attending addendum The patient was seen and examined in the telemetry unit She is an 88 y/o female with a PMH of CHF, prior ICH, atrial fibrillation, depression, dyslipidemia, hypertension, and lumbar compression fracture presents to the ED today from [facility] with lower extremity edema and dyspnea. She complains to have increasing shortness of breath for the last few days associated with bilateral leg swelling Denies any chest pain and/or palpitation, no nausea and vomiting On examination Moderately short of breath at rest without any pain Hemodynamically stable Chest-decreased breath sounds with bibasilar crackles, right basilar dullness as well Heart-S1-S2, prosthetic valve sound,, 2 over systolic murmur over precordium Abdomen-distended, soft, nontender Extremities-2+ edema bilaterally up to upper thigh FORM GRADER-alert awake and oriented,. Generally weak Admission labs, EKG and imaging studies noted Has acute on chronic CHF, healing left fifth metacarpal Agree with assessment and plan as outlined above by SEKOU Rg Dr (1) CHF (congestive heart failure) Heart failure chronicity: unspecified Heart failure type: unspecified Qualified Code(s): I50.9 - Heart failure, unspecified
--- NOTE | 2018-08-24 13:59 | XRay Report ---
XR hand LT min 3V routine CLINICAL HISTORY: left hand pain/swelling x 1 month s/p fall COMPARISON: None. DISCUSSION: The bones are osteopenic. There is a healing oblique fracture of the fifth metacarpal at the junction of middle distal one third. There is 1.5 mm of maximal distraction. There is minimal ang ulation. No additional fractures are visualized. There are no dislocations. IMPRESSION: Healing fifth metacarpal fracture. Electronically signed by: Joseph Bennett M.D. 08/24/2018 1:58 PM
[2018-08-24] MEDS: BACLOFEN 10 MG TAB PO SCH ×2 (15:14→20:45)
--- NOTE | 2018-08-24 17:07 | Emergency Department Note ---
Entered by James Sibley acting as a scribe for Misael Hampton DO History of Present Illness General Chief complaint: Shortness of Breath/Dyspnea Source: patient History of Present Illness Onset (ago): week(s) (past couple (leg swelling)) Location: lower extremity Pain Consistency: + other (persistent) Quality: + other (shortness of breath, leg swelling) Associated symptoms: no chest pain and no nausea/vomiting The patient is an 88 year old female who presents to the Emergency Room with complaints of persistent shortness of breath for the past couple of days. The patient reports that both of her legs have also been swollen for the past couple of weeks up to her hips without significant improvement from her prescribed diuretic. She states that she does not normally wear supplemental oxygen. She denies chest pain, abdominal pain, nausea, or vomiting. Her mobile application development lead is Dr. Navarro. Patient has no other complaints at this time. She notes that she has not missed any doses with her diuretic. No other exacerbating or remitting factors. Home Medications Home Medications Medication Instructions Recorded Confirmed Type acetaminophen [Tylenol Extra 500 mg PO Q4H PRN 05/06/18 08/24/18 History Strength] cholecalciferol (vitamin D3) 2,000 unit PO QAM 05/06/18 08/24/18 History [Vitamin D3] diltiazem HCl 240 mg PO QAM 05/06/18 08/24/18 History guaifenesin [Siltussin SA] 10 ml PO QID PRN 05/06/18 08/24/18 History metoprolol succinate [Toprol XL] 75 mg PO QAM 05/06/18 08/24/18 History pravastatin 40 mg PO HS 05/06/18 08/24/18 History sertraline 25 mg PO QAM 05/06/18 08/24/18 History baclofen 5 mg PO TID 07/22/18 08/24/18 History nystatin 1 applic TOPICAL BID 07/22/18 08/24/18 History polyethylene glycol 3350 [Miralax] 17 g PO QAM 07/22/18 08/24/18 History potassium chloride 20 meq PO QAM 07/22/18 08/24/18 History tramadol 25 mg PO Q8H PRN 07/22/18 08/24/18 History acetaminophen 500 mg PO TID 08/24/18 08/24/18 History furosemide 60 mg PO QAM 08/24/18 08/24/18 History oxycodone 5 mg PO QAM 08/24/18 08/24/18 History Allergies Allergy/AdvReac Type Severity Reaction Status Date / Time Penicillins Allergy Severe THROAT Unverified 08/24/18 11:59 SWELLS AND RASH budesonide Allergy Unknown UNKNOWN Unverified 08/24/18 11:59 moxifloxacin Allergy Unknown UNKNOWN Unverified 08/24/18 11:59 Past Med/Surg History Family History Other Family history non-contributory Social History Preferred Language: Albanian Communication Ability: Effective Oil Tester Required: No Beliefs That Will Affect Care: None marital status: / Current Living Situation: Personal Care Facility Other Information That Helps Us Care for You: No Feels Safe at Home: Yes Safety Concerns: Feels Safe At This Time Smoking Status: Former smoker Do You Dip or Chew Tobacco: No Smoking End Date: 1977 Second Hand Exposure: No Tobacco Cessation Education Requested by Patient: No Hx Alcohol Use: Yes Alcohol type: wine Hx Substance Use: No Review of Systems See HPI for pertinent positives & negatives. and A total of 10 systems reviewed and were otherwise negative Physical Exam Vital Signs Vital Signs - 24 hr 08/24/18 10:49 08/24/18 10:52 08/24/18 12:16 Temperature 36.8 C Temperature Source Oral Sepsis Recent Fever Within 48 Hours No Sepsis New/Unexplained Change in Mental Status No Sepsis Action Taken by Nursing No Action Required Pulse Rate 83 Pulse Rate [Right Finger] 74 Pulse Rhythm Regular Pulse Rhythm [Right Finger] Regular Pulse Strength Normal Pulse Strength [Right Finger] Normal Respiratory Rate 26 H 18 Respiratory Effort / Characteristics Labored Non-Labored Respiratory Depth Normal Normal Respiratory Pattern Regular Regular Blood Pressure 96/83 L Blood Pressure [Right Arm] 124/59 L Blood Pressure Mean 87 Blood Pressure Mean [Right Arm] 80 Blood Pressure Position Lying Pulse Oximetry 88 L 88 L 96 Oxygen Delivery Method Room Air Room Air Nasal Cannula Oxygen Flow Rate 2 GENERAL: sitting up in bed, dyspneic with conversation, nontoxic, in mild distress EYE EXAM: normal conjunctiva OROPHARYNX: no exudate, no erythema, lips, buccal mucosa, and tongue normal and mucous membranes are moist NECK: supple, no nuchal rigidity, no adenopathy, non-tender, positive JVD LUNGS: Crackles at the bilateral lung bases. Normal chest wall mechanics HEART: irregularly irregular rhythm, no murmurs, S1 normal and S2 normal ABDOMEN: abdomen soft, non-tender, normo-active bowel sounds, no masses, no rebound or guarding. BACK: Back is symmetrical on inspection and there is no deformity, no midline tenderness, no CVA tenderness. SKIN: no rashes and no bruising UPPER EXTREMITIES: upper extremities are grossly normal. LOWER EXTREMITIES: Bilateral pitting edema tracking up to the thighs. NEURO EXAM: Normal sensorium, cranial nerves II-XII grossly intact, normal speech, no gross weakness of arms, no gross weakness of legs. Gross sensation intact. Course ED COURSE: Vital signs were reviewed and showed hypotension and hypoxia The patients medical record was reviewed The above diagnostic studies were performed and reviewed. ED treatments and interventions as stated above. 1120: The patient was evaluated in room C2B. A complete history and physical examination was performed. 1155: I updated the patient. 1159: I consulted the [facility] Hospitalist team with Dr. Jones. The patient will be reevaluated for hospitalization. Based on the patients age, coexisting illnesses, exam and lab findings the de cision to treat as an inpatient was made. The patient remained stable while under my care. The patient will be evaluated for further management. Administered Medications Baclofen (Lioresal) 5 mg PO TID [facility] Stop: 09/23/18 13:59 Last Admin: 08/24/18 15:14 Dose: 5 mg Documented by: [id number] Discontinued Medications Furosemide (Lasix) 40 mg IV NOW STA Stop: 08/24/18 11:56 Last Admin: 08/24/18 12:16 Dose: 40 mg Documented by: [id number] Medical Decision Making Differential Diagnosis Differential diagnoses includes but is not limited to pneumonia, bronchitis, COPD/Asthma exacerbation, pneumothorax, pulmonary embolism, congestive heart failure, acute coronary syndrome Medical Records Attestation: I reviewed the patient's medical records. Home Medications Current Medication List: was personally reviewed by me Laboratory Data Attestation: I reviewed the patient's lab results. Result diagrams: 08/24/18 10:30 08/24/18 10:30 Lab Results 05/31/19 05/31/19 05/31/19 Range/Units 10:30 10:30 10:30 WBC 7.36 (4.8-10.8) K/uL RBC 4.01 L (4.2-5.4) M/uL Hgb 12.7 (12.0-16.0) g/dL Hct 38.4 (37-47) % MCV 95.8 (80-100) fL MCH 31.7 (25-34) pg MCHC 33.1 (32-36) g/dL RDW Std Deviation 56.9 H (36.4-46.3) fL RDW Coeff of Smiley 16.2 H (11.5-14.5) % Plt Count 170 (130-400) K/uL MPV 9.5 (7.4-10.4) fL Immature Gran % (Auto) 0.3 % Neut % (Auto) 63.5 % Lymph % (Auto) 21.6 % [place] % (Auto) 11.7 % Eos % (Auto) 2.6 % Baso % (Auto) 0.3 % Immature Gran # (Auto) 0.02 (0.00-0.02) K/uL Neut # (Auto) 4.68 (1.4-6.5) K/uL Lymph # (Auto) 1.59 (1.2-3.4) K/uL [place] # (Auto) 0.86 H (0.11-0.59) K/uL Eos # (Auto) 0.19 (0-0.5) K/uL Baso # (Auto) 0.02 (0-0.2) K/uL PT 11.3 (9.0-12.0) Seconds INR 1.1 (0.9-1.1) APTT 29.8 (21.0-31.0) Seconds PTT Ratio 1.1 Sodium 139 (136-145) mmol/L Potassium 3.6 (3.5-5.1) mmol/L Chloride 104 (98-107) mmol/L Carbon Dioxide 30 (21-32) mmol/L Anion Gap 5.0 (3-11) BUN 17 (7-18) mg/dl Creatinine 0.83 (0.6-1.2) mg/dl Est Cr Clr Drug Dosing 50.2 ml/min Est GFR ( Amer) 73.0 Est GFR (Non-Af Amer) 63.0 BUN/Creatinine Ratio 20.2 H (10-20) Glucose 98 (70-99) mg/dl Calcium 9.1 (8.5-10.1) mg/dl Total Bilirubin 0.8 (0.2-1) mg/dl AST 16 (15-37) U/L ALT 13 (12-78) U/L Alkaline Phosphatase 126 H (45-117) U/L Troponin I < 0.015 (0-0.045) ng/ml NT-Pro-B Natriuret Pep (0-1800) pg/ml Total Protein 8.1 (6.4-8.2) gm/dl Albumin 3.3 L (3.4-5.0) gm/dl Globulin 4.8 H (2.5-4.0) gm/dl Albumin/Globulin Ratio 0.7 L (0.9-2) 08/24/18 Range/Units 10:30 WBC (4.8-10.8) K/uL RBC (4.2-5.4) M/uL Hgb (12.0-16.0) g/dL Hct (37-47) % MCV (80-100) fL MCH (25-34) pg MCHC (32-36) g/dL RDW Std Deviation (36.4-46.3) fL RDW Coeff of Smiley (11.5-14.5) % Plt Count (130-400) K/uL MPV (7.4-10.4) fL Immature Gran % (Auto) % Neut % (Auto) % Lymph % (Auto) % [place] % (Auto) % Eos % (Auto) % Baso % (Auto) % Immature Gran # (Auto) (0.00-0.02) K/uL Neut # (Auto) (1.4-6.5) K/uL Lymph # (Auto) (1.2-3.4) K/uL [place] # (Auto) (0.11-0.59) K/uL Eos # (Auto) (0-0.5) K/uL Baso # (Auto) (0-0.2) K/uL PT (9.0-12.0) Seconds INR (0.9-1.1) APTT (21.0-31.0) Seconds PTT Ratio Sodium (136-145) mmol/L Potassium (3.5-5.1) mmol/L Chloride (98-107) mmol/L Carbon Dioxide (21-32) mmol/L Anion Gap (3-11) BUN (7-18) mg/dl Creatinine (0.6-1.2) mg/dl Est Cr Clr Drug Dosing ml/min Est GFR ( Amer) Est GFR (Non-Af Amer) BUN/Creatinine Ratio (10-20) Glucose (70-99) mg/dl Calcium (8.5-10.1) mg/dl Total Bilirubin (0.2-1) mg/dl AST (15-37) U/L ALT (12-78) U/L Alkaline Phosphatase (45-117) U/L Troponin I (0-0.045) ng/ml NT-Pro-B Natriuret Pep 3156 H (0-1800) pg/ml Total Protein (6.4-8.2) gm/dl Albumin (3.4-5.0) gm/dl Globulin (2.5-4.0) gm/dl Albumin/Globulin Ratio (0.9-2) Imaging Data Radiologist's Impression: Radiology results as stated below per my review and the radiologist's interpretation: XR chest 1V portable CLINICAL HISTORY: Shortness of Breath COMPARISON STUDY: Chest CT May 10, 2018. Chest radiograph July 22, 2018. FINDINGS: There are median sternotomy wires. Marked cardiomegaly is unchanged. Small right pleural effusion is noted. Interstitial thickening reflect pulmonary edema. Mild right basilar opacity is present. IMPRESSION: Interval development of mild pulmonary edema and a small right pleural effusion. Electronically signed by: Andre Barrett M.D. 08/24/2018 11:29 AM ECG Data Attestation: I personally reviewed and interpreted this ECG as follows: Indication: SOB/dyspnea Rate (beats per minute): 83 Rhythm: atrial fibrillation Findings: + other (normal axis, low voltage) and + PVC Blood Pressure Blood Pressure Findings: Low blood pressure Blood Pressure Disposition: further management by hospitalist FAVIAN Villar Patient is an 88-year-old female who presents the ER for swelling her lower extremities. Upon presentation she is found to be hypoxic 88% on room air. Past medical history consistent with CHF. Labs were obtained and showed no significant leukocytosis or anemia. INR was unremarkable. BMP along with LFTs bilirubin showed no acute abnormalities. Troponin was negative. BNP was elevated at 3000. Chest x-ray shows pulmonary edema and pleural effusions. Patient's blood pressure was marginal in the low 90s to 100s. Patient was given a dose of IV Lasix. EKG was unremarkable. She is updated bedside. She is admitted to the hospitalist on 2 L nasal cannula for CHF and shortness of breath. Impression & Plan CHF (congestive heart failure), Hypoxia Discharge Plan Visit Data *Final* Discharge Date/Time: 08/24/18 13:01 Chief Complaint: Shortness of Breath/Dyspnea ED Provider: Misael Hampton Discharge Problem: CHF (congestive heart failure), Hypoxia Patient Disposition: Admitted As Inpatient Discharge Instructions Interventions: ED Discharge Assessment Last Done: 08/24/18 13:01 Discharge Problem: CHF (congestive heart failure) Qualifiers: Heart failure type: unspecified Heart failure chronicity: unspecified Qualified Code(s): I50.9 - Heart failure, unspecified The scribe's documentation has been prepared under my direction and personally reviewed by me in its entirety. I confirm that the note above accurately reflec ts all work, treatment, procedures, and medical decision making performed by me.
--- NOTE | 2018-08-24 17:18 | Orthopedic Consultation ---
Date of Consultation August 24, 2018 Assessment & Plan (1) Fracture of fifth metacarpal bone: She does have a fracture of the fifth metacarpal but appears to be at least 4 weeks old. Her symptoms are getting better. She can fully use her hand and she can make a fist. She still has a little bit of pain in her hand when she is weightbearing with a walker but her symptoms are getting better. The only splint that would be reasonable would be an ulnar gutter splint however that can be very bulky and can limit her more than I want to. I talked to her extensively at bedside. I think that if she just deals with a little bit of soreness now she can still have full function of her left hand. It is going to heal fine where it is. It is already well on its way to healing. It will probably feel much better in the next week or 2. There is no need for follow-up with orthopedics in the office as long as her hand continues to slowly improve. If you have any questions please feel free to contact me personally on my cell phone at [phone] Present on Admission?: Yes History of Present Illness Reason for Consultation: Left fifth metacarpal fracture Attending Physician: Gary Huerta MD History of Present Illness Lisa is a very pleasant 88-year-old female who lives in a nursing facility. Over a month ago she fell onto her left hand. She is been having left hand pain since. Her hands been bothering her when she is using a walker and when she is knitting. Overall is getting a little bit better. Unfortunately she is recently be admitted for lower extremity edema and dyspnea. The medicine team is currently working on fluid balance. An x-ray was obtained of her hand for the first time and it showed a healing fifth metacarpal fracture. Orthopedics was consulted to evaluate and treat. Allergies Allergy/AdvReac Type Severity Reaction Status Date / Time Penicillins Allergy Severe THROAT Unverified 08/24/18 11:59 SWELLS AND RASH budesonide Allergy Unknown UNKNOWN Unverified 08/24/18 11:59 moxifloxacin Allergy Unknown UNKNOWN Unverified 08/24/18 11:59 Home Medications Home Medications Medication Instructions Recorded Confirmed Type acetaminophen [Tylenol Extra 500 mg PO Q4H PRN 05/06/18 08/24/18 History Strength] cholecalciferol (vitamin D3) 2,000 unit PO QAM 05/06/18 08/24/18 History [Vitamin D3] diltiazem HCl 240 mg PO QAM 05/06/18 08/24/18 History guaifenesin [Siltussin SA] 10 ml PO QID PRN 05/06/18 08/24/18 History metoprolol succinate [Toprol XL] 75 mg PO QAM 05/06/18 08/24/18 History pravastatin 40 mg PO HS 05/06/18 08/24/18 History sertraline 25 mg PO QAM 05/06/18 08/24/18 History baclofen 5 mg PO TID 07/22/18 08/24/18 History nystatin 1 applic TOPICAL BID 07/22/18 08/24/18 History polyethylene glycol 3350 [Miralax] 17 g PO QAM 07/22/18 08/24/18 History potassium chloride 20 meq PO QAM 07/22/18 08/24/18 History tramadol 25 mg PO Q8H PRN 07/22/18 08/24/18 History acetaminophen 500 mg PO TID 08/24/18 08/24/18 History furosemide 60 mg PO QAM 08/24/18 08/24/18 History oxycodone 5 mg PO QAM 08/24/18 08/24/18 History Patient History Family History Other Family history non-contributory Social History Preferred Language: Croatian Communication Ability: Effective 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 There is a very slight angulation. She has minimal tenderness palpation in the area the fracture site and she has good embedded software development engineer strength. She is able to make a full fist. Results & Data Vital Signs (Past 12 Hours) Vital Signs Temp Pulse Pulse Pulse Resp BP BP 08/24/18 15:09 36.7 C 75 23 105/68 08/24/18 13:35 36.6 C 81 20 132/84 08/24/18 12:16 74 18 124/59 L 08/24/18 10:52 08/24/18 10:49 36.8 C 83 26 H 96/83 L Pulse Ox 08/24/18 15:09 95 08/24/18 13:35 92 08/24/18 12:16 96 08/24/18 10:52 88 L 08/24/18 10:49 88 L Diagnostic Findings Radiographs reviewed of the left hand do show a minimally displaced fifth metacarpal fracture. There is already some callus formation and signs of healing with indicate the fracture is 4 to 6 weeks old.
[2018-08-24] MEDS: PRAVASTATIN SOD 40 MG TAB PO SCH (20:45)
[2018-08-24] MEDS: HEPARIN SOD 5,000 UNIT/0.5 ML VIAL SQ SCH (20:45)
[2018-08-25] MEDS: ACETAMINOPHEN 325 MG TAB PO PRN (03:12)
[2018-08-25] MEDS ORDERED: LEVALBUTEROL HCL 0.63 MG/3 ML NEB NEB PRN (06:17)
[2018-08-25 06:59] LABS: Basophils # (auto) 0.02 K/uL (0-0.2); Basophils % (auto) 0.4 %; Eosinophils # (auto) 0.18 K/uL (0-0.5); Eosinophils % (auto) 3.3 %; Hematocrit (blood only) 36.2 % (37-47); Hemoglobin 11.7 g/dL (12.0-16.0); Immature Granulocytes # (auto) 0.02 K/uL (0.00-0.02); Immature Granulocytes % (auto) 0.4 %; Lymphocytes # (auto) 1.93 K/uL (1.2-3.4); Lymphocytes % (auto) 34.9 %; Mean Corpuscular Hgb Conc 32.3 g/dL (32-36); Mean Platelet Volume 9.5 fL (7.4-10.4); Monocytes # (auto) 0.62 K/uL (0.11-0.59); Monocytes % (auto) 11.2 %; Neutrophils # (auto) 2.76 K/uL (1.4-6.5); Neutrophils % (auto) 49.8 %; Platelet Count 152 K/uL (130-400); RDW Coefficient of Variation 16.2 % (11.5-14.5); RDW Standard Deviation 56.9 fL (36.4-46.3); Red Blood Count 3.81 M/uL (4.2-5.4); White Blood Count 5.53 K/uL (4.8-10.8)
[2018-08-25] MEDS: LEVALBUTEROL HCL 1.25 MG/3 ML NEB NEB PRN (07:06)
--- NOTE | 2018-08-25 07:16 | Hospitalist Progress Note ---
Date of Service August 25, 2018 Assessment & Plan (1) CHF (congestive heart failure): (2) Pleural effusion: (3) Hypoxia: 1. Hypoxia - due to pleural effusion and CHF - Supplemental O2 titrated to maintain pulse ox - Management of CHF as below 2. CHF - Consult cardiology - pt sees Dr. Navarro as outpatient. - Received IV Lasix in ED - monitor response and adjust diuresis - Aguilar catheter due to need for more aggressive diuresis and current ambulatory dysfunction - Continue potassium supplement - may need to increase with higher dose of lasix - ECHO done in April - defer repeat for now 3. Pleural Effusion - Diuresis as discussed above 4. Left hand pain s/p fall last month - 4th Metacarparpal Fx, Ortho saw her 5. Hypertension - Continue home meds (Toprol and diltiazem) and monitor with more aggressive diuresis 6. Dyslipidemia - Continue outpatient statin therapy 7. Atrial fibrillation - Monitor on telemetry - Continue Toprol and diltiazem - rate-controlled at present - Not a candidate for anticoagulation due to history of ICH and frequent falls 8. Depression - Continue outpatient sertraline - appears stable DC in 1-2 days Results & Data Vital Signs (Past 12 Hours) Vital Signs Temp Pulse Pulse Resp BP BP Pulse Ox 08/25/18 07:01 37.0 C 76 22 114/76 96 08/25/18 04:35 37.0 C 95 H 23 121/64 93 08/24/18 23:09 37.2 C 84 16 122/69 96 Current Diagnoses Heart failure, unspecified (08/24/18) Pleural effusion, not elsewhere classified (08/24/18) Hypoxemia (08/24/18) Unspecified fracture of other metacarpal bone, initial encounter for closed fracture (08/24/18) Allergies Penicillins Allergy (Severe, Unverified 08/24/18 11:59) THROAT SWELLS AND RASH budesonide Allergy (Unknown, Unverified 08/24/18 11:59) UNKNOWN moxifloxacin Allergy (Unknown, Unverified 08/24/18 11:59) UNKNOWN Height/Weight/Isolation Height 5 ft 4 in Weight 84 kg Chemistry 08/24/18 10:30 Sodium 139 Potassium 3.6 Chloride 104 Carbon Dioxide 30 Anion Gap 5.0 BUN 17 Creatinine 0.83 Glucose 98 (1) CHF (congestive heart failure) Heart failure chronicity: unspecified Heart failure type: unspecified Qualified Code(s): I50.9 - Heart failure, unspecified
[2018-08-25 07:32] LABS: BUN Creatinine Ratio 21.3 (10-20); Calcium 9.3 mg/dl (8.5-10.1); Creatinine Clr Calc Pharmacy 62.7 ml/min; Est GFR (African American) 91.9; Est GFR (Non-African American) 79.3; Potassium 3.3 mmol/L (3.5-5.1)
[2018-08-25] MEDS: HEPARIN SOD 5,000 UNIT/0.5 ML VIAL SQ SCH ×2 (08:03→20:53)
[2018-08-25] MEDS: dilTIAZem HCL 120 MG CAPCR PO SCH (08:04)
[2018-08-25] MEDS: METOPROLOL SUCC 50MG EXT REL TAB PO SCH (08:04)
[2018-08-25] MEDS: SPIRONOLACTONE 25 MG TAB PO SCH (08:04)
[2018-08-25] MEDS: BACLOFEN 10 MG TAB PO SCH ×3 (08:05→20:53)
[2018-08-25] MEDS: POTASSIUM CHLORIDE 20 MEQ TABCR PO SCH (08:05)
[2018-08-25] MEDS: SERTRALINE HCL 50 MG TABLET PO SCH (08:05)
[2018-08-25] MEDS: CHOLECALCIFEROL 1,000 UNITS TAB PO SCH (08:05)
[2018-08-25] MEDS: POLYETHYLENE (MIRALAX) 17 GM PACK PO SCH (08:06)
[2018-08-25] MEDS: OXYCODONE HCL IR 5 MG TAB (IMMEDIATE RELEASE) PO SCH (08:09)
[2018-08-25] MEDS ORDERED: dilTIAZem HCL 240 MG CAPCR PO SCH (09:00)
[2018-08-25] MEDS ORDERED: METOPROLOL SUCC 25MG EXT REL TAB PO SCH (09:00)
[2018-08-25] MEDS ORDERED: FUROSEMIDE 20 MG in SYRINGE 0 ML IV ONE (12:00)
--- NOTE | 2018-08-25 15:00 | Consultation Report ---
DATE OF CONSULTATION: 08/25/2018 REQUESTING: Marianela Vieira PA-C CONSULTANT: Carlos Navarro DO, [facility]. REASON FOR CONSULTATION: Recurrent acute on chronic diastolic and right-sided heart failure. Dear Ms. Vieira: It was a pleasure to see Lisa today in followup with regards to her increasing shortness of breath and worsening lower extremity edema. She describes progressive lower extremity edema over the past few weeks. It is bilateral in nature. She has also been more short of breath with exertion with orthopnea and sleeping in a recliner. She has also felt increasingly fatigued and weak. In the Emergency Room, her weight if correct is up 8 kilograms from when she was discharged in April. She denies any lightheadedness or dizziness. She denies any chest pain, chest pressure, chest heaviness. She does have a cough. She denies any fevers, chills or sweats. Her last fall was in June. She denies any recent headaches. She does have some gait instability. The rest of complete review of systems is negative. PAST MEDICAL HISTORY: 1. Chronic diastolic and right-sided heart failure. 2. Echocardiogram with normal LV function and flattening of the intraventricular septum in systole consistent with RV pressure overload. 3. Type 3 diastolic dysfunction with marked biatrial enlargement. 4. Dilated right ventricle with normal RV function. 5. 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 6. History of hypokalemia and hypomagnesemia. 7. History of compression fractures. 8. Moderate pulmonary hypertension. 9. Osteoporosis. 10. Mild nonobstructive CAD, prior to open heart surgery with a 40% mid LAD lesion and 30% mid circumflex lesion. 11. History of subdural hematoma, now off anticoagulation. FAMILY HISTORY: There is no family history of premature heart disease. SOCIAL HISTORY: Denies any tobacco currently, stopping in 1974. She is currently living in an assisted living facility. She smoked 20 years a pack to pack and a half per day. ALLERGIES: PENICILLIN, BUDESONIDE, MOXIFLOXACIN. MEDICATIONS: Reviewed in electronic medical record. PHYSICAL EXAMINATION: GENERAL: She is awake, alert, oriented x3. She is in no acute distress. VITAL SIGNS: Heart rate is 77, blood pressure 114/76, respirations 18, her sats 95% on 1 liter. HEENT: Her jugular venous pressure is elevated. Her carotid upstrokes felt normal. There are no carotid bruits. Her hearing is diminished. LUNGS: Decreased breath sounds in the bases bilaterally. No rales, rhonchi, wheezing. HEART: Regular rate and rhythm. She has a soft systolic ejection murmur at the right sternal border. ABDOMEN: Soft, nontender, nondistended. Positive bowel sounds. EXTREMITIES: Moderate pitting edema to the mid tibia bilaterally with chronic stasis changes. PSYCHIATRIC: Affect appeared appropriate. DIAGNOSTIC STUDIES: Reviewed in detail. Her BNP was just above 3000, which is similar to what was in April of 2018 when she was admitted with heart failure. Hemoglobin 11.7, platelet count of 152. Sodium 140, potassium 3.3, BUN 14, creatinine 0.65. Chest x-ray: Pulmonary edema and small right pleural effusion. IMPRESSION: 1. Acute on chronic right-sided and diastolic heart failure. 2. History of a bioprosthetic aortic valve replacement with normal gradients. 3. Dilated right ventricle with RV dysfunction. 4. Pulmonary hypertension. I added spironolactone 12.5 mg to her medical regimen with the idea that this can be up titrated. She received 40 mg of IV Lasix in the ER and if her weights are accurate, she is down 4 kilograms. I gave her another 20 mg of IV Lasix as well. I reduced her diltiazem from 180 mg of extended release to 120 mg of extended release to hopefully reduce any lower extremity edema related to her calcium channel blockers. In order to control her heart rate, her Toprol was increased from 75 mg to 100 mg daily. We will have to replete her potassium and watch her kidney function. I will continue to diurese her until she becomes prerenal. As discussed above, I would continue with her loop diuretics and up titrate her spironolactone as we can. We will continue to follow with you. Thank you for allowing us to participate in her care.
[2018-08-25] MEDS: PRAVASTATIN SOD 40 MG TAB PO SCH (20:53)
[2018-08-26] MEDS: ACETAMINOPHEN 325 MG TAB PO PRN (00:12)
[2018-08-26 06:49] LABS: Hemoglobin 11.6 g/dL (12.0-16.0); Mean Corpuscular Hgb Conc 32.2 g/dL (32-36); Mean Corpuscular Volume 95.7 fL (80-100); Mean Platelet Volume 9.4 fL (7.4-10.4); Platelet Count 153 K/uL (130-400); RDW Coefficient of Variation 15.9 % (11.5-14.5); RDW Standard Deviation 56.5 fL (36.4-46.3); Red Blood Count 3.76 M/uL (4.2-5.4); White Blood Count 5.62 K/uL (4.8-10.8)
[2018-08-26 07:23] LABS: BUN Creatinine Ratio 19.9 (10-20); Creatinine Clr Calc Pharmacy 59.7 ml/min; Est GFR (African American) 90.5; Est GFR (Non-African American) 78.1; Potassium 3.4 mmol/L (3.5-5.1)
--- NOTE | 2018-08-26 07:28 | Hospitalist Progress Note ---
Date of Service August 26, 2018 Assessment & Plan (1) CHF (congestive heart failure): (2) Pleural effusion: (3) Hypoxia: 1. Hypoxia - due to pleural effusion and CHF - Supplemental O2 titrated to maintain pulse ox, on 2L nc - Management of CHF as below 2. CHF - Dr. Navarro on case - Received IV Lasix in ED - monitor response and adjust diuresis - Aguilar catheter due to need for more aggressive diuresis and current ambulatory dysfunction - Continue potassium supplement - may need to increase with higher dose of lasix - ECHO done in April - defer repeat for now - Spironolactone 12.5 mg added, she is down 4 kilograms. Diltiazem from 180 mg of extended release to 120 mg of extended release to hopefully reduce any lower extremity edema related to her calcium channel blockers. In order to control her heart rate, her Toprol was increased from 75 mg to 100 mg daily. 3. Pleural Effusion - Diuresis as discussed above 4. Left hand pain s/p fall last month - 4th Metacarparpal Fx, Ortho saw her 5. Hypertension - Continue home meds (Toprol and diltiazem) and monitor with more aggressive diuresis 6. Dyslipidemia - Continue outpatient statin therapy 7. Atrial fibrillation - Monitor on telemetry - Continue Toprol and diltiazem - rate-controlled at present - Not a candidate for anticoagulation due to history of ICH and frequent falls 8. Depression - Continue outpatient sertraline - appears stable DC in 1-2 days Results & Data Vital Signs (Past 12 Hours) Vital Signs Temp Pulse Pulse Resp BP BP Pulse Ox 08/26/18 03:51 36.7 C 77 23 112/72 94 08/26/18 00:04 36.9 C 88 22 123/79 95 08/25/18 19:32 36.9 C 76 18 134/80 95 Current Diagnoses Heart failure, unspecified (08/24/18) Pleural effusion, not elsewhere classified (08/24/18) Hypoxemia (08/24/18) Unspecified fracture of other metacarpal bone, initial encounter for closed fracture (08/24/18) Allergies Penicillins Allergy (Severe, Unverified 08/24/18 11:59) THROAT SWELLS AND RASH budesonide Allergy (Unknown, Unverified 08/24/18 11:59) UNKNOWN moxifloxacin Allergy (Unknown, Unverified 08/24/18 11:59) UNKNOWN Height/Weight/Isolation Height 5 ft 4 in Weight 83.3 kg Chemistry 08/24/18 08/25/18 08/26/18 10:30 06:21 06:38 Sodium 139 140 139 Potassium 3.6 3.3 L 3.4 L Chloride 104 104 104 Carbon Dioxide 30 29 30 Anion Gap 5.0 8.0 5.0 BUN 17 14 13 Creatinine 0.83 0.65 0.68 Glucose 98 90 90 (1) CHF (congestive heart failure) Heart failure chronicity: unspecified Heart failure type: unspecified Qualified Code(s): I50.9 - Heart failure, unspecified
[2018-08-26] MEDS: HEPARIN SOD 5,000 UNIT/0.5 ML VIAL SQ SCH ×2 (08:54→20:26)
[2018-08-26] MEDS: BACLOFEN 10 MG TAB PO SCH ×3 (08:55→20:25)
[2018-08-26] MEDS: METOPROLOL SUCC 50MG EXT REL TAB PO SCH (08:55)
[2018-08-26] MEDS: CHOLECALCIFEROL 1,000 UNITS TAB PO SCH (08:55)
[2018-08-26] MEDS: POTASSIUM CHLORIDE 20 MEQ TABCR PO SCH (08:56)
[2018-08-26] MEDS: dilTIAZem HCL 120 MG CAPCR PO SCH (08:56)
[2018-08-26] MEDS: SERTRALINE HCL 50 MG TABLET PO SCH (08:56)
[2018-08-26] MEDS: SPIRONOLACTONE 25 MG TAB PO SCH (08:56)
[2018-08-26] MEDS: POLYETHYLENE (MIRALAX) 17 GM PACK PO SCH (08:56)
[2018-08-26] MEDS: OXYCODONE HCL IR 5 MG TAB (IMMEDIATE RELEASE) PO SCH (08:58)
[2018-08-26] MEDS ORDERED: FUROSEMIDE 40 MG in SYRINGE 0 ML IV ONE (12:47)
--- NOTE | 2018-08-26 12:51 | Cardiology Progress Note ---
Date of Service August 26, 2018 Subjective As was discussed with nursing. She does not really want to get up out of bed or get to a chair. When she tries to ambulate with her walker she does not follow directions. She denies any shortness of breath this morning and notes that her wheezing has resolved. She has any chest pain chest pressure chest heaviness. She has any palpitations lightheadedness or dizziness. She still has significant lower extremity edema. She has not ambulated enough to determine whether she. She denies a cough. She denies any bleeding but does have some bruising. Results & Data Vital Signs (Past 12 Hours) Vital Signs Temp Pulse Resp BP BP Pulse Ox 08/26/18 10:47 36.5 C 77 19 124/83 96 08/26/18 07:33 36.7 C 71 19 129/80 95 08/26/18 03:51 36.7 C 77 23 112/72 94 PHYSICAL EXAMINATION: GENERAL: She is awake, alert, oriented x3. She is in no acute distress. HEENT: Her jugular venous pressure is elevated. Her carotid upstrokes felt normal. There are no carotid bruits. Her hearing is diminished. LUNGS: Decreased breath sounds in the bases bilaterally. No rales, rhonchi, wheezing. HEART: Regular rate and rhythm. She has a soft systolic ejection murmur at the right sternal border. ABDOMEN: Soft, nontender, nondistended. Positive bowel sounds. EXTREMITIES: Moderate pitting edema to the mid tibia bilaterally with chronic stasis changes. PSYCHIATRIC: Affect appeared appropriate. IMPRESSION: 1. Acute on chronic right-sided and diastolic heart failure. 2. History of a bioprosthetic aortic valve replacement with normal gradients. 3. Dilated right ventricle with RV dysfunction. 4. Pulmonary hypertension. I made the following recommendations: 1. Stop her diltiazem as this is potentially making her lower extremity edema worse 2. She will remain on Toprol which can be uptitrated. Her heart rates here seem to be well controlled 3. I will increase her spironolactone to 25 mg daily with an additional 12-1/2 mg to total 25 mg this morning. 4. We will give her a one-time dose of 40 mg of IV Lasix. 5. I recommend Louie wraps to try to provide some venous compression to her lower extremities. 6. This was discussed with the hospitalist service
[2018-08-26] MEDS ORDERED: SPIRONOLACTONE 25 MG TAB PO SCH (13:00)
[2018-08-26] MEDS: PRAVASTATIN SOD 40 MG TAB PO SCH (20:25)
[2018-08-27] MEDS: ACETAMINOPHEN 500 MG TAB PO PRN (02:35)
[2018-08-27 07:11] LABS: Hematocrit (blood only) 36.7 % (37-47); Mean Corpuscular Hgb Conc 32.7 g/dL (32-36); Mean Corpuscular Volume 95.6 fL (80-100); Mean Platelet Volume 9.4 fL (7.4-10.4); Platelet Count 160 K/uL (130-400); RDW Coefficient of Variation 15.7 % (11.5-14.5); RDW Standard Deviation 55.1 fL (36.4-46.3); Red Blood Count 3.84 M/uL (4.2-5.4); White Blood Count 5.13 K/uL (4.8-10.8)
[2018-08-27 07:52] LABS: BUN Creatinine Ratio 20.4 (10-20); Calcium 9.1 mg/dl (8.5-10.1); Creatinine Clr Calc Pharmacy 65.5 ml/min; Est GFR (African American) 93.3; Est GFR (Non-African American) 80.5; Potassium 3.6 mmol/L (3.5-5.1)
--- NOTE | 2018-08-27 08:21 | Hospitalist Progress Note ---
Date of Service August 27, 2018 Assessment & Plan (1) CHF (congestive heart failure): (2) Pleural effusion: (3) Hypoxia: 1. Hypoxia - due to pleural effusion and CHF - Supplemental O2 titrated to maintain pulse ox, on 2L nc - Management of CHF as below 2. CHF - Dr. Navarro on case - Received IV Lasix in ED - monitor response and adjust diuresis - Aguilar catheter due to need for more aggressive diuresis and current ambulatory dysfunction - Continue potassium supplement - may need to increase with higher dose of lasix - ECHO done in April - defer repeat for now - Spironolactone now 25 mg, she is down 4 kilograms. Diltiazem DCd, Toprol was increased to 100 mg daily. - Still c B/LE Edema 3. Pleural Effusion - Diuresis as discussed above 4. Left hand pain s/p fall last month - 4th Metacarparpal Fx, Ortho saw her, no surgery needed 5. Hypertension - Continue home meds (Toprol and diltiazem) and monitor with more aggressive diuresis 6. Dyslipidemia - Continue outpatient statin therapy 7. Atrial fibrillation - Monitor on telemetry - Continue Toprol and diltiazem - rate-controlled at present - Not a candidate for anticoagulation due to history of ICH and frequent falls 8. Depression - Continue outpatient sertraline - appears stable DC 1-2 days, Patient is on 2L, she is not on O2 at home, PT/OT, 2 Step ROS-No Headache, No Visual Changes, No Nausea, No Vomiting, No Fever, No Chills, No Neck Pain or Stiffness, No Chest Pain, No Palpitations, No SOB, No COTTRELL, No Cough, No Sputum, No Wheezing, No Abdominal Pain, No Diarrhea, No Hematemesis, No Hemoptysis, No Unexpected Weight Loss, No Flank pain, No Melena, No Hematochezia, No Frequency, No Urgency, No Burning, No Hematuria, No Rashes, No Diaphoresis. Appetite is Normal, C/O edema, SOB Physical Exam Gen-AAO x 3, NAD, Afebrile, On O2 Head-NCAT, EOMI, PERRLA, Anicteric Sclera, No Posterior Pharyngeal Erythema Neck-Supple, No JVD, No Thyromegaly, No Masses, No LAD, No Bruits Lungs-Clear to Auscultation Bilaterally, No Rales, No Rhonchi, No Wheezing, No Crepitus Chest-No S4, +S1, +S2, No S3, No Murmurs, No Rubs, No Gallops, No Ectopy Abdomen-Soft, Bowel Sounds Present, Non Tender, Non Distended, No Hepatomegaly, No Splenomegaly, No Palpable Masses, No Rebound, No Rigidity, No Guarding Musculoskeletal-Full Range of Motion Bilaterally, No CVAT Extremities-No Cyanosis, No Clubbing, 2+ LE Edema Bilaterally Nuero-Cranial Nerves II-XII grossly intact, Motor WNL, DTRs WNL, Strength WNL, Non Focal Psych-Normal Mood Results & Data Vital Signs (Past 12 Hours) Vital Signs Temp Pulse Pulse Resp BP Pulse Ox 08/27/18 07:17 36.6 C 51 L 18 131/83 96 08/27/18 00:00 37.2 C 86 18 119/71 97 (1) CHF (congestive heart failure) Heart failure chronicity: unspecified Heart failure type: unspecified Qualified Code(s): I50.9 - Heart failure, unspecified
[2018-08-27] MEDS: HEPARIN SOD 5,000 UNIT/0.5 ML VIAL SQ SCH ×2 (09:07→20:52)
[2018-08-27] MEDS: POTASSIUM CHLORIDE 20 MEQ TABCR PO SCH (09:08)
[2018-08-27] MEDS: SERTRALINE HCL 50 MG TABLET PO SCH (09:08)
[2018-08-27] MEDS: SPIRONOLACTONE 25 MG TAB PO SCH (09:08)
[2018-08-27] MEDS: BACLOFEN 10 MG TAB PO SCH ×3 (09:09→20:52)
[2018-08-27] MEDS: CHOLECALCIFEROL 1,000 UNITS TAB PO SCH (09:10)
[2018-08-27] MEDS: METOPROLOL SUCC 50MG EXT REL TAB PO SCH (09:11)
[2018-08-27] MEDS: POLYETHYLENE (MIRALAX) 17 GM PACK PO SCH (09:12)
[2018-08-27] MEDS: OXYCODONE HCL IR 5 MG TAB (IMMEDIATE RELEASE) PO SCH (09:14)
[2018-08-27] MEDS ORDERED: FUROSEMIDE 40 MG/4 ML VIAL IV STA (09:24)
--- NOTE | 2018-08-27 09:28 | Cardiology Progress Note ---
Date of Service August 27, 2018 Subjective And has a number of complaints. She notes her legs feel weak. She has any chest pain or chest pressure. She does not appear short of breath. Her lower extremity edema has improved with adjustment in her medical regimen. She denies any lightheadedness or dizziness. Results & Data Vital Signs (Past 12 Hours) Vital Signs Temp Pulse Pulse Resp BP Pulse Ox 08/27/18 07:17 36.6 C 51 L 18 131/83 96 08/27/18 00:00 37.2 C 86 18 119/71 97 PHYSICAL EXAMINATION: GENERAL: She is awake, alert, oriented x3. She is in no acute distress. HEENT: Her jugular venous pressure is elevated. Her carotid upstrokes felt normal. There are no carotid bruits. Her hearing is diminished. LUNGS: Decreased breath sounds in the Right base. No rales, rhonchi, wheezing. HEART: Regular rate and rhythm. She has a soft systolic ejection murmur at the right sternal border. ABDOMEN: Soft, nontender, nondistended. Positive bowel sounds. EXTREMITIES: Mild to Moderate pitting edema to the mid tibia bilaterally with chronic stasis changes. PSYCHIATRIC: Affect appeared appropriate. IMPRESSION: 1. Acute on chronic right-sided and diastolic heart failure. 2. History of a bioprosthetic aortic valve replacement with normal gradients. 3. Dilated right ventricle with RV dysfunction. 4. Pulmonary hypertension. I made the following recommendations: 1. I stopped her diltiazem as this Was potentially making her lower extremity edema worse And her legs look better this morning 2. She will remain on Toprol 100 mg daily 3. spironolactone to 25 mg daily 4. We will give her a one-time dose of 40 mg of IV Lasix And add 20 mg of Lasix p.o. daily to her medical regiment 5. I recommend Louie wraps to try to provide some venous compression to her lower extremities. 6. She will need a BMP in 7 to 10 days after discharge.
[2018-08-27] MEDS ORDERED: FUROSEMIDE 40 MG in SYRINGE 0 ML IV ONE (10:00)
[2018-08-27] MEDS: PRAVASTATIN SOD 40 MG TAB PO SCH (20:52)
[2018-08-28] MEDS: LEVALBUTEROL HCL 1.25 MG/3 ML NEB NEB PRN (01:03)
[2018-08-28] MEDS: ACETAMINOPHEN 500 MG TAB PO PRN ×3 (05:25→19:30)
--- NOTE | 2018-08-28 07:40 | XRay Report ---
XR chest 1V portable CLINICAL HISTORY: 88 years-old Female presenting with Pleural Effusion. TECHNIQUE: Portable upright AP view of the chest was obtained. COMPARISON: 08/24/2018. FINDINGS: Median sternotomy wires in place. Atherosclerosis of the aortic arch. Cardiac silhouette enlarged. In terval increase in the now moderate right pleural effusion. Decreased aeration of the right mid to lo wer lung. Mildly prominent pulmonary vasculature. Left lung and pleural space grossly clear. No pneum othorax. Osteopenia. Degenerative changes of the spine. Upper abdomen normal. IMPRESSION: 1. Increased size of the now moderate right pleural effusion with extensive right basilar atelectasi s. 2. Cardiomegaly with mild volume overload. Electronically signed by: Hayes Mcfarland M.D. 08/28/2018 7:39 AM
--- NOTE | 2018-08-28 08:19 | Hospitalist Progress Note ---
Date of Service August 28, 2018 Assessment & Plan (1) CHF (congestive heart failure): (2) Pleural effusion: (3) Hypoxia: 1. Hypoxia - due to pleural effusion and CHF - Supplemental O2 titrated to maintain pulse ox, on 2L nc - Management of CHF as below - Continue to diurese and DC 1-2 days, attempt to DC wo O2 2. CHF - Dr. Navarro on case - Received IV Lasix in ED - monitor response and adjust diuresis - Aguilar catheter due to need for more aggressive diuresis and current ambulatory dysfunction - Continue potassium supplement - may need to increase with higher dose of lasix - ECHO done in April - defer repeat for now - Spironolactone now 25 mg, she is down 4 kilograms. Diltiazem DCd, Toprol was increased to 100 mg daily. - Still c B/LE Edema 3. Pleural Effusion - Diuresis as discussed above 4. Left hand pain s/p fall last month - 4th Metacarparpal Fx, Ortho saw her, no surgery needed 5. Hypertension - Continue home meds (Toprol and diltiazem) and monitor with more aggressive diuresis 6. Dyslipidemia - Continue outpatient statin therapy 7. Atrial fibrillation - Monitor on telemetry - Continue Toprol and diltiazem - rate-controlled at present - Not a candidate for anticoagulation due to history of ICH and frequent falls 8. Depression - Continue outpatient sertraline - appears stable DC 1-2 days, Patient is on 2L, she is not on O2 at home, PT/OT, 2 Step ROS-No Headache, No Visual Changes, No Nausea, No Vomiting, No Fever, No Chills, No Neck Pain or Stiffness, No Chest Pain, No Palpitations, No SOB, No COTTRELL, No Cough, No Sputum, No Wheezing, No Abdominal Pain, No Diarrhea, No Hematemesis, No Hemoptysis, No Unexpected Weight Loss, No Flank pain, No Melena, No Hematochezia, No Frequency, No Urgency, No Burning, No Hematuria, No Rashes, No Diaphoresis. Appetite is Normal, C/O edema, SOB Physical Exam Gen-AAO x 3, NAD, Afebrile, On O2 Head-NCAT, EOMI, PERRLA, Anicteric Sclera, No Posterior Pharyngeal Erythema Neck-Supple, No JVD, No Thyromegaly, No Masses, No LAD, No Bruits Lungs-Clear to Auscultation Bilaterally, No Rales, No Rhonchi, No Wheezing, No Crepitus Chest-No S4, +S1, +S2, No S3, No Murmurs, No Rubs, No Gallops, No Ectopy Abdomen-Soft, Bowel Sounds Present, Non Tender, Non Distended, No Hepatomegaly, No Splenomegaly, No Palpable Masses, No Rebound, No Rigidity, No Guarding Musculoskeletal-Full Range of Motion Bilaterally, No CVAT Extremities-No Cyanosis, No Clubbing, 2+ LE Edema Bilaterally Nuero-Cranial Nerves II-XII grossly intact, Motor WNL, DTRs WNL, Strength WNL, Non Focal Psych-Normal Mood Results & Data Vital Signs (Past 12 Hours) Vital Signs Temp Pulse Pulse Resp BP Pulse Ox 08/28/18 06:10 36.4 C L 105 H 20 128/86 93 08/28/18 01:04 116 H 18 93 08/27/18 22:39 36.8 C 99 H 18 124/82 91 Labs checked (1) CHF (congestive heart failure) Heart failure chronicity: unspecified Heart failure type: unspecified Qualified Code(s): I50.9 - Heart failure, unspecified
[2018-08-28 08:28] LABS: Hematocrit (blood only) 37.1 % (37-47); Hemoglobin 12.1 g/dL (12.0-16.0); Mean Corpuscular Hgb Conc 32.6 g/dL (32-36); Mean Corpuscular Volume 95.1 fL (80-100); Mean Platelet Volume 9.2 fL (7.4-10.4); Platelet Count 171 K/uL (130-400); RDW Coefficient of Variation 15.4 % (11.5-14.5); RDW Standard Deviation 53.8 fL (36.4-46.3); White Blood Count 5.34 K/uL (4.8-10.8)
[2018-08-28 08:42] LABS: Partial Thromboplastin Ratio 1.1; Partial Thromboplastin Time 29.6 Seconds (21.0-31.0)
[2018-08-28] MEDS: SERTRALINE HCL 50 MG TABLET PO SCH (08:42)
[2018-08-28] MEDS: BACLOFEN 10 MG TAB PO SCH ×3 (08:43→20:25)
[2018-08-28] MEDS: SPIRONOLACTONE 25 MG TAB PO SCH (08:44)
[2018-08-28] MEDS: CHOLECALCIFEROL 1,000 UNITS TAB PO SCH (08:44)
[2018-08-28] MEDS: POTASSIUM CHLORIDE 20 MEQ TABCR PO SCH (08:44)
[2018-08-28] MEDS: METOPROLOL SUCC 50MG EXT REL TAB PO SCH (08:44)
[2018-08-28] MEDS: OXYCODONE HCL IR 5 MG TAB (IMMEDIATE RELEASE) PO SCH (08:46)
[2018-08-28] MEDS: POLYETHYLENE (MIRALAX) 17 GM PACK PO SCH (08:47)
[2018-08-28] MEDS: HEPARIN SOD 5,000 UNIT/0.5 ML VIAL SQ SCH ×2 (08:47→20:27)
[2018-08-28 08:51] LABS: BUN Creatinine Ratio 23.6 (10-20); Calcium 9.4 mg/dl (8.5-10.1); Est GFR (African American) 96.5; Est GFR (Non-African American) 83.2; Potassium 3.7 mmol/L (3.5-5.1)
[2018-08-28] MEDS ORDERED: FUROSEMIDE 20 MG TAB PO SCH (09:00)
--- NOTE | 2018-08-28 09:25 | Cardiology Progress Note ---
Date of Service August 28, 2018 Subjective She is concerned that she is not feeling as well she had the previous day. Looking at her she actually looks a lot better than yesterday and her breathing seems more good her color seems to have improved as well. I think this is just some underlying depression. She denies any chest pain or chest pressure she has any lightheadedness or dizziness. The swelling in her legs have improved significantly Results & Data Vital Signs (Past 12 Hours) Vital Signs Temp Pulse Pulse Resp BP Pulse Ox 08/28/18 06:10 36.4 C L 105 H 20 128/86 93 08/28/18 01:04 116 H 18 93 08/27/18 22:39 36.8 C 99 H 18 124/82 91 PHYSICAL EXAMINATION: GENERAL: She is awake, alert, oriented x3. She is in no acute distress. HEENT: Her jugular venous pressure is elevated. Her carotid upstrokes felt normal. There are no carotid bruits. Her hearing is diminished. LUNGS: Decreased breath sounds in the Right base. No rales, rhonchi, wheezing. HEART: Irregular rate and rhythm. She has a soft systolic ejection murmur at the right sternal border. ABDOMEN: Soft, nontender, nondistended. Positive bowel sounds. EXTREMITIES: Mild edema to the mid tibia bilaterally chronic stasis changes. PSYCHIATRIC: Affect appeared appropriate. IMPRESSION: 1. Acute on chronic right-sided and diastolic heart failure. 2. History of a bioprosthetic aortic valve replacement with normal gradients. 3. Dilated right ventricle with RV dysfunction. 4. Pulmonary hypertension. 5. Atrial fibrillation She is tachycardic this morning but she just received her 100 mg of Toprol. We will have to watch this. I would stop her furosemide at this point. Although she does not appear prerenal on her laboratory studies it is possible we have decreased her intravascular volume which is leading to her tachycardia. I would have her remain on Spironolactone and hopefully this in combination with stopping her calcium channel janette will improve her lower extremity edema. Given her age and the fact that she is on Aldactone she will need close monitoring of her creatinine and potassium. I would recommend a BMP in a week's time. If she remains tachycardic but does not appear to be significantly prerenal in additional 25 to 50 mg of Toprol can be given at night given the fact we stopped her diltiazem. When she is discharged I would prescribe Lasix 20 mg as needed for lower extremity edema or weight gain of more than 2 pounds in a 24-hour period. [facility].
[2018-08-28] MEDS ORDERED: FUROSEMIDE 20 MG in SYRINGE 0 ML IV ONE (10:30)
[2018-08-28] MEDS: FUROSEMIDE 40 MG in SYRINGE 0 ML IV SCH (20:25)
[2018-08-28] MEDS: PRAVASTATIN SOD 40 MG TAB PO SCH (20:27)
[2018-08-29] MEDS: ACETAMINOPHEN 500 MG TAB PO PRN ×2 (01:12→05:44)
[2018-08-29 07:51] LABS: Hematocrit (blood only) 39.6 % (37-47); Hemoglobin 12.9 g/dL (12.0-16.0); Mean Corpuscular Hgb Conc 32.6 g/dL (32-36); Mean Corpuscular Volume 95.4 fL (80-100); Mean Platelet Volume 9.5 fL (7.4-10.4); Platelet Count 188 K/uL (130-400); RDW Coefficient of Variation 15.4 % (11.5-14.5); RDW Standard Deviation 53.8 fL (36.4-46.3); Red Blood Count 4.15 M/uL (4.2-5.4); White Blood Count 5.58 K/uL (4.8-10.8)
[2018-08-29 07:59] LABS: Partial Thromboplastin Ratio 1.1; Partial Thromboplastin Time 30.2 Seconds (21.0-31.0)
[2018-08-29 08:20] LABS: BUN Creatinine Ratio 21.5 (10-20); Calcium 9.5 mg/dl (8.5-10.1); Est GFR (African American) 95.4; Est GFR (Non-African American) 82.3; Potassium 3.7 mmol/L (3.5-5.1)
[2018-08-29] MEDS: BACLOFEN 10 MG TAB PO SCH ×3 (09:15→20:32)
[2018-08-29] MEDS: CHOLECALCIFEROL 1,000 UNITS TAB PO SCH (09:15)
[2018-08-29] MEDS: POLYETHYLENE (MIRALAX) 17 GM PACK PO SCH (09:18)
[2018-08-29] MEDS: SERTRALINE HCL 50 MG TABLET PO SCH (09:19)
[2018-08-29] MEDS: POTASSIUM CHLORIDE 20 MEQ TABCR PO SCH (09:19)
[2018-08-29] MEDS: SPIRONOLACTONE 25 MG TAB PO SCH (09:19)
[2018-08-29] MEDS: METOPROLOL SUCC 50MG EXT REL TAB PO SCH (09:20)
[2018-08-29] MEDS: HEPARIN SOD 5,000 UNIT/0.5 ML VIAL SQ SCH ×2 (09:21→20:31)
[2018-08-29] MEDS: OXYCODONE HCL IR 5 MG TAB (IMMEDIATE RELEASE) PO SCH (09:25)
[2018-08-29] MEDS: FUROSEMIDE 40 MG in SYRINGE 0 ML IV SCH ×2 (10:30→20:31)
--- NOTE | 2018-08-29 17:20 | Cardiology Progress Note ---
Date of Service August 29, 2018 Results & Data Vital Signs (Past 12 Hours) Vital Signs Temp Pulse Pulse Resp BP Pulse Ox 08/29/18 16:40 37.0 C 118 H 18 127/85 96 08/29/18 15:27 89 L 08/29/18 06:32 36.7 C 94 H 18 134/89 94
[2018-08-29] MEDS: PRAVASTATIN SOD 40 MG TAB PO SCH (20:32)
--- NOTE | 2018-08-29 21:18 | Hospitalist Progress Note ---
Date of Service August 29, 2018 Assessment & Plan (1) CHF (congestive heart failure): (2) Pleural effusion: (3) Hypoxia: Present on admission with LE extremity and SOB CXR on admission showed interval development of mild pulmonary edema and a small right pleural effusion. Repeat CXR showed Increased size of the now moderate right pleural effusion. Cardiomegaly with mild volume overload. Cardiology on board On Lasix 40mg BID and spironolactone 25mg Continue toprol 10mmg LE swelling improved significantly Clinically improves 4. Left hand pain s/p fall last month Hand xray showed healing fifth metacarpal fracture. Had seen by ortho and no surgical intervention needed 5. Hypertension Continue home meds Toprol and spironolactone Monitor BP 6. Dyslipidemia Continue statin 7. Atrial fibrillation HR elevated today Continue Toprol Not a candidate for anticoagulation due to history of ICH and frequent falls 8. Depression Pt said that depression worsening Will increase Zoloft to 50mg daily Pt would like to see psych Will consult psych Subjective Pt was seen and examined Lying in bed with distress Pt said that she feels weak She said that she had no energy She said that she feels depressed Denies any chest pain, palpitation, dizziness and SOB Physical Exam Physical Exam: General- No acute distress Head- atraumatic Eyes- PERRL, EOMI, ENT- oropharynx clear Neck- supple, no JVD Lungs- Decrease breath sound Heart- irregular rhythm; +murmur Abdomen- normal bowel sounds, soft, nontender Extremities- no calf tenderness, +edema Neuro- alert, oriented, PERRL, EOMI Skin- warm & dry Results & Data Vital Signs (Past 12 Hours) Vital Signs Temp Pulse Resp BP Pulse Ox 08/29/18 16:40 37.0 C 118 H 18 127/85 96 08/29/18 15:27 89 L (1) CHF (congestive heart failure) Heart failure chronicity: unspecified Heart failure type: unspecified Qualified Code(s): I50.9 - Heart failure, unspecified
[2018-08-30] MEDS ORDERED: POTASSIUM CHLORIDE 20 MEQ TABCR PO STA (00:11)
[2018-08-30] MEDS ORDERED: ALBUMIN 25% 50 ML IV ONE (00:16)
[2018-08-30 00:42] LABS: Basophils # (auto) 0.02 K/uL (0-0.2); Basophils % (auto) 0.2 %; Eosinophils % (auto) 1.2 %; Hematocrit (blood only) 39.9 % (37-47); Hemoglobin 13.5 g/dL (12.0-16.0); Immature Granulocytes # (auto) 0.03 K/uL (0.00-0.02); Immature Granulocytes % (auto) 0.4 %; Lymphocytes # (auto) 1.78 K/uL (1.2-3.4); Lymphocytes % (auto) 21.3 %; Mean Corpuscular Hgb Conc 33.8 g/dL (32-36); Mean Corpuscular Volume 94.3 fL (80-100); Mean Platelet Volume 9.2 fL (7.4-10.4); Monocytes # (auto) 0.86 K/uL (0.11-0.59); Monocytes % (auto) 10.3 %; Neutrophils # (auto) 5.55 K/uL (1.4-6.5); Neutrophils % (auto) 66.6 %; Platelet Count 221 K/uL (130-400); RDW Coefficient of Variation 14.9 % (11.5-14.5); RDW Standard Deviation 51.4 fL (36.4-46.3); Red Blood Count 4.23 M/uL (4.2-5.4); White Blood Count 8.34 K/uL (4.8-10.8)
[2018-08-30 00:58] LABS: BUN Creatinine Ratio 19.8 (10-20); Calcium 9.1 mg/dl (8.5-10.1); Creatinine Clr Calc Pharmacy 62.5 ml/min; Est GFR (African American) 92.3; Est GFR (Non-African American) 79.7; Magnesium 1.9 mg/dl (1.8-2.4); Potassium 3.6 mmol/L (3.5-5.1)
[2018-08-30] MEDS: METOPROLOL SUCC 50MG EXT REL TAB PO SCH ×2 (01:02→08:56)
[2018-08-30] MEDS ORDERED: MAGNESIUM SULFATE / D5W 1 GM/100 ML BAG IV ONE (01:30)
[2018-08-30] MEDS: POLYETHYLENE (MIRALAX) 17 GM PACK PO SCH (08:55)
[2018-08-30] MEDS: POTASSIUM CHLORIDE 20 MEQ TABCR PO SCH (08:56)
[2018-08-30] MEDS: SERTRALINE HCL 50 MG TABLET PO SCH (08:56)
[2018-08-30] MEDS: CHOLECALCIFEROL 1,000 UNITS TAB PO SCH (08:56)
[2018-08-30] MEDS: BACLOFEN 10 MG TAB PO SCH ×3 (08:56→21:10)
[2018-08-30] MEDS: HEPARIN SOD 5,000 UNIT/0.5 ML VIAL SQ SCH ×2 (08:57→21:09)
[2018-08-30] MEDS: SPIRONOLACTONE 25 MG TAB PO SCH (08:57)
[2018-08-30] MEDS: OXYCODONE HCL IR 5 MG TAB (IMMEDIATE RELEASE) PO SCH (08:59)
--- NOTE | 2018-08-30 16:01 | Psychiatric Progress Note ---
Date of Service August 30, 2018 Interval History Chief Complaint "[]". Subjective Subjective Patient was seen this morning at approximately 1030am. She was unable to answer questions and kept falling asleep in between questioning. Will try see her again tomorrow when she is more lucid. Physical Exam Vital Signs (Past 24 Hours) Last Vital Signs Temp 36.7 C 08/30/18 15:22 Pulse 96 H 08/30/18 15:22 Resp 18 08/30/18 15:22 BP 111/78 08/30/18 15:22 Pulse Ox 95 08/30/18 15:22 Results & Data Laboratory Results Laboratory Results - last 24 hr 08/30/18 08/30/18 00:18 00:18 WBC 8.34 RBC 4.23 Hgb 13.5 Hct 39.9 MCV 94.3 MCH 31.9 MCHC 33.8 RDW Std Deviation 51.4 H RDW Coeff of Smiley 14.9 H Plt Count 221 MPV 9.2 Immature Gran % (Auto) 0.4 Neut % (Auto) 66.6 Lymph % (Auto) 21.3 Fannin % (Auto) 10.3 Eos % (Auto) 1.2 Baso % (Auto) 0.2 Immature Gran # (Auto) 0.03 H Neut # (Auto) 5.55 Lymph # (Auto) 1.78 Fannin # (Auto) 0.86 H Eos # (Auto) 0.10 Baso # (Auto) 0.02 Sodium 136 Potassium 3.6 Chloride 96 L Carbon Dioxide 35 H Anion Gap 5.0 BUN 13 Creatinine 0.64 Est Cr Clr Drug Dosing 62.5 Est GFR ( Amer) 92.3 Est GFR (Non-Af Amer) 79.7 BUN/Creatinine Ratio 19.8 Glucose 103 H Calcium 9.1 Magnesium 1.9 Current Inpatient Medications Current Inpatient Medications: Current Inpatient Medications Acetaminophen (Tylenol) 500 mg PO Q4H PRN PRN Reason: mild pain/fever Stop: 09/25/18 14:53 Last Admin: 08/29/18 05:44 Dose: 500 mg Documented by: Baclofen (Lioresal) 5 mg PO TID [facility] Stop: 09/23/18 13:59 Last Admin: 08/30/18 15:24 Dose: 5 mg Documented by: Furosemide (Lasix) 40 mg PO QAM [facility] Stop: 09/30/18 08:59 Heparin Sodium (Porcine) (Heparin Sodium (Porcine)) 5,000 units SQ Q12 JULIET Stop: 09/23/18 20:59 Last Admin: 08/30/18 08:57 Dose: 5,000 units Documented by: Levalbuterol HCl (Xopenex 1.25mg/3ml Neb) 1.25 mg NEB Q6H PRN PRN Reason: Shortness Of Breath Or Wheezin Stop: 09/24/18 07:03 Last Admin: 08/28/18 01:03 Dose: 1.25 mg Documented by: Met[facility]rol[facility] Su[facility] ([facility] Xl) [facility] Stop: 09/29/18 00:14 Last Admin: 08/30/18 08:56 Dose: 100 mg Documented by: Oxycodone HCl (Roxicodone Immediate Rel) 5 mg PO QAM [facility] Stop: 09/08/18 08:59 Last Admin: 08/30/18 08:59 Dose: 5 mg Documented by: Polyethylene Glycol (Miralax Powder Packet) 17 gm PO [facility] Stop: 09/24/18 08:59 Last Admin: 08/30/18 08:55 Dose: Not Given Documented by: Potassium Chloride (Klor-Con M20) 20 meq PO QAM [facility] Stop: 09/24/18 08:59 Last Admin: 08/30/18 08:56 Dose: 20 meq Documented by: Pravastatin Sodium (Pravachol) 40 mg PO HS [facility] Stop: 09/23/18 20:59 Last Admin: 08/29/18 20:32 Dose: 40 mg Documented by: Sertraline HCl (Zoloft) [facility] Stop: 09/29/18 08:59 Last Admin: 08/30/18 08:56 Dose: 50 mg Documented by: Spironolactone (Aldactone) 25 mg PO DAILY [facility] Stop: 09/26/18 08:59 Last Admin: 08/30/18 08:57 Dose: 25 mg Documented by: Vitamin D (Vitamin D3) 2,000 units PO DAILY [facility] Stop: 09/24/18 08:59 Last Admin: 08/30/18 08:56 Dose: 2,000 units Documented by: CPT Code CPT Code 64015 [id number]
--- NOTE | 2018-08-30 20:18 | Hospitalist Progress Note ---
Date of Service August 30, 2018 Assessment & Plan (1) CHF (congestive heart failure): (2) Pleural effusion: (3) Hypoxia: Present on admission with LE extremity and SOB CXR on admission showed interval development of mild pulmonary edema and a small right pleural effusion. Repeat CXR showed Increased size of the now moderate right pleural effusion. Cardiomegaly with mild volume overload. Cardiology on board Continue spironolactone 25mg and IV lasix transition to oral Continue toprol 100 mg LE swelling improved significantly Clinically improves 4. Left hand pain s/p fall last month Hand xray showed healing fifth metacarpal fracture. Had seen by ortho and no surgical intervention needed 5. Hypertension Continue home meds Toprol and spironolactone Monitor BP 6. Dyslipidemia Continue statin 7. Atrial fibrillation HR elevated today Continue Toprol Not a candidate for anticoagulation due to history of ICH and frequent falls 8. Depression Pt said that depression worsening Zoloft increased to 50mg daily Psych on board CODE STATUS DNR DVT px on heparin Subjective Pt was seen and examined Sitting in chair with no distress Pt said that she feels sad unable to answer why she feels sad Denies any chest pain, palpitation, dizziness and SOB Physical Exam Physical Exam: General- No acute distress Head- atraumatic Eyes- PERRL, EOMI, ENT- oropharynx clear Neck- supple, no JVD Lungs- Decrease breath sound Heart- irregular rhythm; +murmur Abdomen- normal bowel sounds, soft, nontender Extremities- no calf tenderness, +edema Neuro- alert, oriented, PERRL, EOMI Skin- warm & dry Results & Data Vital Signs (Past 12 Hours) Vital Signs Temp Pulse Resp BP Pulse Ox 08/30/18 15:22 36.7 C 96 H 18 111/78 95 (1) CHF (congestive heart failure) Heart failure chronicity: unspecified Heart failure type: unspecified Qualified Code(s): I50.9 - Heart failure, unspecified
[2018-08-30] MEDS: PRAVASTATIN SOD 40 MG TAB PO SCH (21:10)
[2018-08-31] MEDS: ACETAMINOPHEN 500 MG TAB PO PRN ×2 (03:31→08:36)
[2018-08-31] MEDS: POLYETHYLENE (MIRALAX) 17 GM PACK PO SCH (08:36)
[2018-08-31] MEDS: CHOLECALCIFEROL 1,000 UNITS TAB PO SCH (08:37)
[2018-08-31] MEDS: SERTRALINE HCL 50 MG TABLET PO SCH (08:37)
[2018-08-31] MEDS: FUROSEMIDE 40 MG TAB PO SCH (08:37)
[2018-08-31] MEDS: OXYCODONE HCL IR 5 MG TAB (IMMEDIATE RELEASE) PO SCH (08:37)
[2018-08-31] MEDS: BACLOFEN 10 MG TAB PO SCH ×3 (08:38→21:05)
[2018-08-31] MEDS: SPIRONOLACTONE 25 MG TAB PO SCH (08:38)
[2018-08-31] MEDS: POTASSIUM CHLORIDE 20 MEQ TABCR PO SCH (08:38)
[2018-08-31] MEDS: HEPARIN SOD 5,000 UNIT/0.5 ML VIAL SQ SCH ×2 (08:44→21:40)
--- NOTE | 2018-08-31 18:13 | Hospitalist Progress Note ---
Date of Service August 31, 2018 Assessment & Plan (1) CHF (congestive heart failure): (2) Pleural effusion: (3) Hypoxia: Present on admission with LE extremity and SOB CXR on admission showed interval development of mild pulmonary edema and a small right pleural effusion. Repeat CXR showed Increased size of the now moderate right pleural effusion. Cardiomegaly with mild volume overload. Cardiology on board Continue spironolactone 25mg Transition to lasix 40mg PO daily Continue toprol 100 mg LE swelling improved significantly Clinically improves 4. Left hand pain s/p fall last month Hand xray showed healing fifth metacarpal fracture. Had seen by ortho and no surgical intervention needed 5. Hypertension Continue home meds Toprol and spironolactone Monitor BP 6. Dyslipidemia Continue statin 7. Atrial fibrillation HR elevated today Continue Toprol Not a candidate for anticoagulation due to history of ICH and frequent falls 8. Depression Pt said that depression worsening Continue Zoloft 50mg daily Psych on board CODE STATUS DNR DVT px on heparin Disposition Possible discharge tomorrow Subjective Pt was seen and examined Lying in bed with no distress Pt is little bit more awake today She said that she feels tired and weak Denies any chest pain, palpitation and SOB Physical Exam Physical Exam: General- No acute distress Head- atraumatic Eyes- PERRL, EOMI, ENT- oropharynx clear Neck- supple, no JVD Lungs- Decrease breath sound Heart- irregular rhythm; +murmur Abdomen- normal bowel sounds, soft, nontender Extremities- no calf tenderness, +edema Neuro- alert, oriented, PERRL, EOMI Skin- warm & dry Results & Data Vital Signs (Past 12 Hours) Vital Signs Temp Pulse Pulse Resp BP BP Pulse Ox 08/31/18 15:00 36.5 C 93 H 21 104/74 96 08/31/18 07:56 36.4 C L 91 H 16 108/73 97 (1) CHF (congestive heart failure) Heart failure chronicity: unspecified Heart failure type: unspecified Qualified Code(s): I50.9 - Heart failure, unspecified
[2018-08-31] MEDS: PRAVASTATIN SOD 40 MG TAB PO SCH (21:06)
[2018-09-01] MEDS ORDERED: POTASSIUM CHLORIDE 20 MEQ TABCR PO STA (00:35)
[2018-09-01] MEDS ORDERED: METOPROLOL SUCC 50MG EXT REL TAB PO SCH (00:45)
[2018-09-01 00:50] LABS: Basophils # (auto) 0.02 K/uL (0-0.2); Basophils % (auto) 0.3 %; Eosinophils # (auto) 0.22 K/uL (0-0.5); Eosinophils % (auto) 3.7 %; Hematocrit (blood only) 37.8 % (37-47); Hemoglobin 12.5 g/dL (12.0-16.0); Immature Granulocytes # (auto) 0.02 K/uL (0.00-0.02); Immature Granulocytes % (auto) 0.3 %; Lymphocytes # (auto) 1.52 K/uL (1.2-3.4); Lymphocytes % (auto) 25.3 %; Mean Corpuscular Hgb Conc 33.1 g/dL (32-36); Mean Corpuscular Volume 95.7 fL (80-100); Mean Platelet Volume 9.4 fL (7.4-10.4); Monocytes # (auto) 0.65 K/uL (0.11-0.59); Monocytes % (auto) 10.8 %; Neutrophils # (auto) 3.57 K/uL (1.4-6.5); Neutrophils % (auto) 59.6 %; Platelet Count 197 K/uL (130-400); Red Blood Count 3.95 M/uL (4.2-5.4)
[2018-09-01 01:17] LABS: BUN Creatinine Ratio 33.8 (10-20); Calcium 9.1 mg/dl (8.5-10.1); Creatinine Clr Calc Pharmacy 58.5 ml/min; Est GFR (African American) 91.4; Est GFR (Non-African American) 78.9; Magnesium 2.2 mg/dl (1.8-2.4); Potassium 4.3 mmol/L (3.5-5.1)
[2018-09-01] MEDS: ACETAMINOPHEN 500 MG TAB PO PRN ×2 (03:44→08:04)
[2018-09-01] MEDS: OXYCODONE HCL IR 5 MG TAB (IMMEDIATE RELEASE) PO SCH (08:03)
[2018-09-01] MEDS: FUROSEMIDE 40 MG TAB PO SCH (08:03)
[2018-09-01] MEDS: SERTRALINE HCL 50 MG TABLET PO SCH (08:03)
[2018-09-01] MEDS: POTASSIUM CHLORIDE 20 MEQ TABCR PO SCH (08:03)
[2018-09-01] MEDS: BACLOFEN 10 MG TAB PO SCH ×2 (08:03→13:48)
[2018-09-01] MEDS: CHOLECALCIFEROL 1,000 UNITS TAB PO SCH (08:03)
[2018-09-01] MEDS: SPIRONOLACTONE 25 MG TAB PO SCH (08:03)
[2018-09-01] MEDS: HEPARIN SOD 5,000 UNIT/0.5 ML VIAL SQ SCH (08:04)
[2018-09-01] MEDS: POLYETHYLENE (MIRALAX) 17 GM PACK PO SCH (08:04)
--- NOTE | 2018-09-01 11:49 | Psychiatric Consultation ---
Date of Consultation September 01, 2018 Impression / Recommendations (1) Depression: Patient is a limited historian, but reports low mood, which she attributes to being in the hospital. She also endorses decreased energy, excessive sleep, decreased motivation, and hopelessness. She denies suicidality and has been calm and cooperative here. She has not an acute safety risk, and is appropriate for long-term placement. The primary team started sertraline, which she is tolerating well. She will need to follow-up with her PCP after discharge, and would benefit from increased socialization. Depression Type: unspecified Qualified Code(s): F32.9 - Major depressive disorder, single episode, unspecified Present on Admission?: Yes Psych History Chief Complaint "I can go to sleep at any time". History of Present Illness 88 y/o female with a PMH of CHF, prior ICH, atrial fibrillation, depression, dyslipidemia, hypertension, and lumbar compression fracture who lives at [facility] and presented to the ER with lower extremity edema and dyspnea. She was admitted 08/24/2018, and a psychiatry consult for depression was requested 08/30/2018. The primary attending started her on sertraline, and she is now on 50 mg daily. Psychiatry consult team has attempted to see her multiple times over the past 2 days, and she has been too somnolent to participate in a psychiatric interview. According to nursing notes, she has been intermittently confused, sleeping excessively, and reporting poor motivation. She has been referred to [facility]. On my assessment today, she is dozing in her chair but is arousable and able to participate in the interview. She admits mood has been lowered since she has been in the hospital, stating she is "certainly not happy about being here." She states that prior to coming to the hospital, her mood was "hopeful." She is unable to clarify her mood currently, stating she does not think about it. She denies thoughts of harming herself or anyone else, sedations, paranoia. She reports decreased appetite which she attributes to shortness of breath when trying to eat. She also reports feeling sad that her son has not come to visit, although her [id number] visited and brought her lino. She denies any side effects to the sertraline. Allergies Allergy/AdvReac Type Severity Reaction Status Date / Time Penicillins Allergy Severe THROAT Unverified 08/24/18 11:59 SWELLS AND RASH budesonide Allergy Unknown UNKNOWN Unverified 08/24/18 11:59 moxifloxacin Allergy Unknown UNKNOWN Unverified 08/24/18 11:59 Home Medications Home Medications Medication Instructions Recorded Confirmed Type acetaminophen [Tylenol Extra 500 mg PO Q4H PRN 05/06/18 08/24/18 History Strength] cholecalciferol (vitamin D3) 2,000 unit PO QAM 05/06/18 08/24/18 History [Vitamin D3] diltiazem HCl 240 mg PO QAM 05/06/18 08/24/18 History guaifenesin [Siltussin SA] 10 ml PO QID PRN 05/06/18 08/24/18 History metoprolol succinate [Toprol XL] 75 mg PO QAM 05/06/18 08/24/18 History pravastatin 40 mg PO HS 05/06/18 08/24/18 History sertraline 25 mg PO QAM 05/06/18 08/24/18 History baclofen 5 mg PO TID 07/22/18 08/24/18 History nystatin 1 applic TOPICAL BID 07/22/18 08/24/18 History polyethylene glycol 3350 [Miralax] 17 g PO QAM 07/22/18 08/24/18 History potassium chloride 20 meq PO QAM 07/22/18 08/24/18 History tramadol 25 mg PO Q8H PRN 07/22/18 08/24/18 History acetaminophen 500 mg PO TID 08/24/18 08/24/18 History furosemide 60 mg PO QAM 08/24/18 08/24/18 History oxycodone 5 mg PO QAM 08/24/18 08/24/18 History Personal History Beliefs That Will Affect Care: None Patient History Family History Other Family history non-contributory Social History Preferred Language: Albanian Communication Ability: Effective Writer Producer Required: No Beliefs That Will Affect Care: None marital status: / Current Living Situation: Personal Care Facility Other Information That Helps Us Care for You: No Feels Safe at Home: Yes Safety Concerns: Feels Safe At This Time Smoking Status: Former smoker Do You Dip or Chew Tobacco: No Smoking End Date: 1977 Second Hand Exposure: No Tobacco Cessation Education Requested by Patient: No Hx Alcohol Use: Yes Alcohol type: wine Hx Substance Use: No Physical Exam Psychiatric: Elderly female appearing her stated age, seated in the bedside chair in no acute distress, with nasal cannula in place. Initially dozing, but arousable and able to participate in the interview. Eye Contact: + poor eye contact Motor Behavior: no abnormal motor movements Slightly slowed, normal volume and tone. Affect: + blunted affect and + constricted affect (To sleepy) "I don't know." Vital Signs (Past 24 Hours): Last Vital Signs Temp 36.7 C 09/01/18 07:27 Pulse 113 H 09/01/18 07:27 Resp 16 09/01/18 07:27 BP 119/88 09/01/18 07:27 Pulse Ox 96 09/01/18 07:27 Review of Systems All systems reviewed & are unremarkable except as noted in HPI & below Weakness, difficulty walking Results & Data Medications Administered Acetaminophen (Tylenol) 500 mg PO Q4H PRN PRN Reason: mild pain/fever Stop: 09/25/18 14:53 Last Admin: 09/01/18 08:04 Dose: 500 mg Documented by: [id number] Admin: 09/01/18 03:44 Dose: 500 mg Documented by: [id number] Admin: 08/31/18 08:36 Dose: 500 mg Documented by: [id number] Admin: 08/31/18 03:31 Dose: 500 mg Documented by: [id number] Admin: 08/29/18 05:44 Dose: 500 mg Documented by: [id number] Admin: 08/29/18 01:12 Dose: 500 mg Documented by: [id number] Admin: 08/28/18 19:30 Dose: 500 mg Documented by: [id number] Admin: 08/28/18 14:49 Dose: 500 mg Documented by: [id number] Admin: 08/28/18 05:25 Dose: 500 mg Documented by: [id number] Admin: 08/27/18 02:35 Dose: 500 mg Documented by: [id number] Baclofen (Lioresal) 5 mg PO TID JULIET Stop: 09/23/18 13:59 Last Admin: 09/01/18 08:03 Dose: 5 mg Documented by: [id number] Admin: 08/31/18 21:05 Dose: 5 mg Documented by: [id number] Admin: 08/31/18 15:17 Dose: 5 mg Documented by: [id number] Admin: 08/31/18 08:38 Dose: 5 mg Documented by: [id number] Admin: 08/30/18 21:10 Dose: 5 mg Documented by: [id number] Admin: 08/30/18 15:24 Dose: 5 mg Documented by: [id number] Admin: 08/30/18 08:56 Dose: 5 mg Documented by: [id number] Admin: 08/29/18 20:32 Dose: 5 mg Documented by: [id number] Admin: 08/29/18 13:55 Dose: 5 mg Documented by: [id number] Admin: 08/29/18 09:15 Dose: 5 mg Documented by: [id number] Admin: 08/28/18 20:25 Dose: 5 mg Documented by: [id number] Admin: 08/28/18 14:48 Dose: 5 mg Documented by: [id number] Admin: 08/28/18 08:43 Dose: 5 mg Documented by: [id number] Admin: 08/27/18 20:52 Dose: 5 mg Documented by: [id number] Admin: 08/27/18 14:30 Dose: Not Given Documented by: [id number] Admin: 08/27/18 09:09 Dose: 5 mg Documented by: [id number] Admin: 08/26/18 20:25 Dose: 5 mg Documented by: [id number] Admin: 08/26/18 13:35 Dose: 5 mg Documented by: [id number] Admin: 08/26/18 08:55 Dose: 5 mg Documented by: [id number] Admin: 08/25/18 20:53 Dose: 5 mg Documented by: [id number] Admin: 08/25/18 14:07 Dose: 5 mg Documented by: [id number] Admin: 08/25/18 08:05 Dose: 5 mg Documented by: [id number] Admin: 08/24/18 20:45 Dose: 5 mg Documented by: [id number] Admin: 08/24/18 15:14 Dose: 5 mg Documented by: [id number] [facility] [place] Stop: 09/30/18 08:59 Last Admin: 09/01/18 08:03 Dose: 40 mg Documented by: [id number] Admin: 08/31/18 08:37 Dose: 40 mg Documented by: [id number] Heparin Sodium (Porcine) (Heparin Sodium (Porcine)) 5,000 units SQ Q12 JULIET Stop: 09/23/18 20:59 Last Admin: 09/01/18 08:04 Dose: 5,000 units Documented by: [id number] Cosigned by: [id number] Admin: 08/31/18 21:40 Dose: 5,000 units Documented by: [id number] Cosigned by: [id number] Admin: 08/31/18 08:44 Dose: 5,000 units Documented by: [id number] Cosigned by: [id number] Admin: 08/30/18 21:09 Dose: 5,000 units Documented by: [id number] Cosigned by: [id number] Admin: 08/30/18 08:57 Dose: 5,000 units Documented by: [id number] Cosigned by: [id number] Admin: 08/29/18 20:31 Dose: 5,000 units Documented by: [id number] Cosigned by: [id number] Admin: 08/29/18 09:21 Dose: 5,000 units Documented by: [id number] Cosigned by: [id number] Admin: 08/28/18 20:27 Dose: 5,000 units Documented by: [id number] Cosigned by: [id number] Admin: 08/28/18 08:47 Dose: 5,000 units Documented by: [id number] Cosigned by: [id number] Admin: 08/27/18 20:52 Dose: 5,000 units Documented by: [id number] Cosigned by: [id number] Admin: 08/27/18 09:07 Dose: 5,000 units Documented by: [id number] Cosigned by: [id number] Admin: 08/26/18 20:26 Dose: 5,000 units Documented by: [id number] Cosigned by: [id number] Admin: 08/26/18 08:54 Dose: 5,000 units Documented by: [id number] Cosigned by: [id number] Admin: 08/25/18 20:53 Dose: 5,000 units Documented by: [id number] Cosigned by: [id number] Admin: 08/25/18 08:03 Dose: 5,000 units Documented by: [id number] Cosigned by: [id number] Admin: 08/24/18 20:45 Dose: 5,000 units Documented by: [id number] Cosigned by: [id number] Levalbuterol HCl (Xopenex 1.25mg/3ml Neb) 1.25 mg NEB Q6H PRN PRN Reason: Shortness Of Breath Or Wheezin Stop: 09/24/18 07:03 Last Admin: 08/28/18 01:03 Dose: 1.25 mg Documented by: [id number] Admin: 08/25/18 07:06 Dose: 1.25 mg Documented by: [id number] Metoprolol Succinate (Toprol Xl) 100 mg PO [facility] Stop: 10/01/18 00:44 Last Admin: 09/01/18 01:01 Dose: 100 mg Documented by: [id number] Oxycodone HCl (Roxicodone Immediate Rel) 5 mg PO [facility] Stop: 09/08/18 08:59 Last Admin: 09/01/18 08:03 Dose: 5 mg Documented by: [id number] Admin: 08/31/18 08:37 Dose: 5 mg Documented by: [id number] Admin: 08/30/18 08:59 Dose: 5 mg Documented by: [id number] Admin: 08/29/18 09:25 Dose: 5 mg Documented by: [id number] Admin: 08/28/18 08:46 Dose: 5 mg Documented by: [id number] Admin: 08/27/18 09:14 Dose: 5 mg Documented by: [id number] Admin: 08/26/18 08:58 Dose: 5 mg Documented by: [id number] Admin: 08/25/18 08:09 Dose: 5 mg Documented by: [id number] Polyethylene Glycol (Miralax Powder Packet) 17 gm PO [facility] Stop: 09/24/18 08:59 Last Admin: 09/01/18 08:04 Dose: 17 gm Documented by: [id number] Admin: 08/31/18 08:36 Dose: 17 gm Documented by: [id number] Admin: 08/30/18 08:55 Dose: Not Given Documented by: [id number] Admin: 08/29/18 09:18 Dose: Not Given Documented by: [id number] Admin: 08/28/18 08:47 Dose: 17 gm Documented by: [id number] Admin: 08/27/18 09:12 Dose: 17 gm Documented by: [id number] Admin: 08/26/18 08:56 Dose: Not Given Documented by: [id number] Admin: 08/25/18 08:06 Dose: Not Given Documented by: [id number] Potassium Chloride (Klor-Con M20) 20 meq PO [facility] Stop: 09/24/18 08:59 Last Admin: 09/01/18 08:03 Dose: 20 meq Documented by: [id number] Admin: 08/31/18 08:38 Dose: 20 meq Documented by: [id number] Admin: 08/30/18 08:56 Dose: 20 meq Documented by: [id number] Admin: 08/29/18 09:19 Dose: 20 meq Documented by: [id number] Admin: 08/28/18 08:44 Dose: 20 meq Documented by: [id number] Admin: 08/27/18 09:08 Dose: 20 meq Documented by: [id number] Admin: 08/26/18 08:56 Dose: 20 meq Documented by: [id number] Admin: 08/25/18 08:05 Dose: 20 meq Documented by: [id number] Pravastatin Sodium (Pravachol) 40 mg PO HS JULIET Stop: 09/23/18 20:59 Last Admin: 08/31/18 21:06 Dose: 40 mg Documented by: [id number] Admin: 08/30/18 21:10 Dose: 40 mg Documented by: [id number] Admin: 08/29/18 20:32 Dose: 40 mg Documented by: [id number] Admin: 08/28/18 20:27 Dose: 40 mg Documented by: [id number] Admin: 08/27/18 20:52 Dose: 40 mg Documented by: [id number] Admin: 08/26/18 20:25 Dose: 40 mg Documented by: [id number] Admin: 08/25/18 20:53 Dose: 40 mg Documented by: [id number] Admin: 08/24/18 20:45 Dose: 40 mg Documented by: [id number] Sertraline HCl (Zoloft) 50 mg PO QAM JULIET Stop: 09/29/18 08:59 Last Admin: 09/01/18 08:03 Dose: 50 mg Documented by: [id number] Admin: 08/31/18 08:37 Dose: 50 mg Documented by: [id number] Admin: 08/30/18 08:56 Dose: 50 mg Documented by: [id number] Spironolactone (Aldactone) 25 mg PO DAILY JULIET Stop: 09/26/18 08:59 Last Admin: 09/01/18 08:03 Dose: 25 mg Documented by: [id number] Admin: 08/31/18 08:38 Dose: 25 mg Documented by: [id number] Admin: 08/30/18 08:57 Dose: 25 mg Documented by: [id number] Admin: 08/29/18 09:19 Dose: 25 mg Documented by: [id number] Admin: 08/28/18 08:44 Dose: 25 mg Documented by: [id number] Admin: 08/27/18 09:08 Dose: 25 mg Documented by: [id number] Vitamin D (Vitamin D3) 2,000 units PO DAILY JULIET Stop: 09/24/18 08:59 Last Admin: 09/01/18 08:03 Dose: 2,000 units Documented by: [id number] Admin: 08/31/18 08:37 Dose: 2,000 units Documented by: [id number] Admin: 08/30/18 08:56 Dose: 2,000 units Documented by: [id number] Admin: 08/29/18 09:15 Dose: 2,000 units Documented by: [id number] Admin: 08/28/18 08:44 Dose: 2,000 units Documented by: [id number] Admin: 08/27/18 09:10 Dose: 2,000 units Documented by: [id number] Admin: 08/26/18 08:55 Dose: 2,000 units Documented by: [id number] Admin: 08/25/18 08:05 Dose: 2,000 units Documented by: [id number]
--- NOTE | 2018-09-01 13:12 | Hospitalist Progress Note ---
Date of Service September 01, 2018 Assessment & Plan (1) CHF (congestive heart failure): (2) Pleural effusion: (3) Hypoxia: Present on admission with LE extremity and SOB CXR on admission showed interval development of mild pulmonary edema and a small right pleural effusion. Repeat CXR showed Increased size of the now moderate right pleural effusion. Cardiomegaly with mild volume overload. Cardiology on board Case discussed with cardiology Dr. Navarro recommended to discharge on Toprol 100mg daily and spironolactone 25mg Also will discharge on lasix 20mg daily and prn additional dose 20mg if weight increase by 2lbs Diltiazem was discontinue due LE edema by cardiology Clinically improves Continue oxygen supplement for now Monitor BMP while on diuretic Continue daily weight check 4. Left hand pain s/p fall last month Hand xray showed healing fifth metacarpal fracture. Had seen by ortho and no surgical intervention needed No need for follow-up with orthopedics in the office as long as her hand continues to slowly improve as per ortho Dr. Goodwin 5. Hypertension BP stable Continue Toprol 100mg and spironolactone 25mg and lasix 20mg Monitor BP 6. Dyslipidemia Continue statin 7. Atrial fibrillation HR has been running btw 90's to 110's Discussed case with cardiology and felt pt probably dehydrate Recommended to give 250ml IVF before discharge home today Discontinued diltiazem as per cardio on discharge Continue Toprol 100mg daily Not a candidate for anticoagulation due to history of ICH and frequent falls Follow up with cardiology 8. Depression Denies any suicidal thought Continue Zoloft 50mg daily Psych on board Would benefit from increased socialization 9. Weakness Continue PT/OT Fall precaution discontinue oxycodone due to lethargy Continue Tramadol for the pain baclofen decrease from TID to BID CODE STATUS DNR DVT px on heparin Disposition Discharge to [facility] today Subjective Pt was seen and examined Sitting in chair with no distress eating her lunch Pt is much awake today She said that she cannot go back to [facility] because they will not take her because she is very weak Pt is going to [facility], but she would rather go back to [facility] She said that she has been getting the pain med I told her that i will decrease the narcotic to 1/2, then use the tylenol prn She said that the tylenol does not help much with the pain Denies any chest pain, palpitation, dizziness and SOB Physical Exam Physical Exam: General- No acute distress Head- atraumatic Eyes- PERRL, EOMI, ENT- oropharynx clear Neck- supple, no JVD Lungs- Decrease breath sound Heart- irregular rhythm; +murmur Abdomen- normal bowel sounds, soft, nontender Extremities- no calf tenderness, +edema Neuro- alert, oriented, PERRL, EOMI Skin- warm & dry Results & Data Vital Signs (Past 12 Hours) Vital Signs Temp Pulse Pulse Resp BP BP Pulse Ox 09/01/18 07:27 36.7 C 113 H 16 119/88 96 09/01/18 06:10 97 H 112/72 (1) CHF (congestive heart failure) Heart failure chronicity: unspecified Heart failure type: unspecified Quali fied Code(s): I50.9 - Heart failure, unspecified
[2018-09-01] MEDS ORDERED: SODIUM CHLORIDE 0.9% 500 ML IV SCH (13:15)
--- NOTE | 2018-09-03 15:21 | Discharge Summary ---
Date of Service September 01, 2018 Admission HPI Per Admitting Provider 88 y/o female with a PMH of CHF, prior ICH, atrial fibrillation, depression, dyslipidemia, hypertension, and lumbar compression fracture who lives at [facility] and presented to the ER with lower extremity edema and dyspnea. She was admitted 08/24/2018, and a psychiatry consult for depression was requested 08/30/2018. The primary attending started her on sertraline, and she is now on 50 mg daily. Psychiatry consult team has attempted to see her multiple times over the past 2 days, and she has been too somnolent to participate in a psychiatric interview. According to nursing notes, she has been intermittently confused, sleeping excessively, and reporting poor motivation. She has been referred to [facility]. On my assessment today, she is dozing in her chair but is arousable and able to participate in the interview. She admits mood has been lowered since she has been in the hospital, stating she is "certainly not happy about being here." She states that prior to coming to the hospital, her mood was "hopeful." She is unable to clarify her mood currently, stating she does not think about it. She denies thoughts of harming herself or anyone else, sedations, paranoia. She reports decreased appetite which she attributes to shortness of breath when trying to eat. She also reports feeling sad that her son has not come to visit, although her [id number] visited and brought her lino. She denies any side effects to the sertraline. Admission Exam Per Admitting Provider Constitutional: no acute distress frail-appearing Eyes: PERRL, conjunctivae normal, anicteric sclerae ENMT: external ear and nose normal, oropharynx normal Neck: trachea midline Respiratory: + labored breathing (mildly); no respiratory distress and does not use accessory muscles Auscultation: + crackles (throughout but worse at bases); no wheezes Cardiovascular: Rate/Rhythm: + irregularly irregular Heart Sounds: no gallop and no cardiac rub Vessels: + JVD Extremities: + edema (3+ to distal thigh - left slightly greater than right); no calf tenderness Gastrointestinal Inspection/Auscultation: normal bowel sounds Percussion/Palpation: abdomen soft; abdomen nontender and no guarding Musculoskeletal: Head/Neck/Chest: normocephalic and head atraumatic Extremities: + hand abnormality (mild edema/tenderness along 4th & 5th metacarpal area - 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) Left; no cyanosis and no clubbing Skin: no rashes, warm and dry no jaundice Neurologic: moves all extremities Speech / Cognition: normal speech Psychiatric: A+Ox3, euthymic affect Principal Diagnosis 1) CHF (congestive heart failure): (2) Pleural effusion: (3) Hypoxia: (4) Left hand pain s/p fall last month (5) Atrial fibrillation (6) Hypertension (7) Depression Discharge Exam General- No acute distress Head- atraumatic Eyes- PERRL, EOMI, ENT- oropharynx clear Neck- supple, no JVD Lungs- Decrease breath sound Heart- irregular rhythm; +murmur Abdomen- normal bowel sounds, soft, nontender Extremities- no calf tenderness, +edema Neuro- alert, oriented, PERRL, EOMI Skin- warm & dry Discharge Data Allergies Allergy/AdvReac Type Severity Reaction Status Date / Time Penicillins Allergy Severe THROAT Unverified 08/24/18 11:59 SWELLS AND RASH budesonide Allergy Unknown UNKNOWN Unverified 08/24/18 11:59 moxifloxacin Allergy Unknown UNKNOWN Unverified 08/24/18 11:59 Consultations 08/24/18 11:59 ED Decision to Admit Stat 08/24/18 13:01 Consult Cardiology Routine 08/24/18 15:56 Consult Orthopedic Surgery Routine 08/30/18 00:25 Consult Psychiatry Routine Ordered Studies XR chest 1V portable CLINICAL HISTORY: Shortness of Breath COMPARISON STUDY: Chest CT May 10, 2018. Chest radiograph July 22, 2018. FINDINGS: There are median sternotomy wires. Marked cardiomegaly is unchanged. Small right pleural effusion is noted. Interstitial thickening reflect pulmonary edema. Mild right basilar opacity is present. IMPRESSION: Interval development of mild pulmonary edema and a small right pleural effusion. Electronically signed by: Andre Barrett M.D. 08/24/2018 11:29 AM Dictated: 08/24/18 1127 Transcribed: 08/24/18 1127 XR hand LT min 3V routine CLINICAL HISTORY: left hand pain/swelling x 1 month s/p fall COMPARISON: None. DISCUSSION: The bones are osteopenic. There is a healing oblique fracture of the fifth metacarpal at the junction of middle distal one third. There is 1.5 mm of maximal distraction. There is minimal angulation. No additional fractures are visualized. There are no dislocations. IMPRESSION: Healing fifth metacarpal fracture. Electronically signed by: Joseph Bennett M.D. 08/24/2018 1:58 PM Dictated: 08/24/18 1357 Transcribed: 08/24/18 135 XR chest 1V portable CLINICAL HISTORY: 88 years-old Female presenting with Pleural Effusion. TECHNIQUE: Portable upright AP view of the chest was obtained. COMPARISON: 08/24/2018. FINDINGS: Median sternotomy wires in place. Atherosclerosis of the aortic arch. Cardiac silhouette enlarged. Interval increase in the now moderate right pleural effusion. Decreased aeration of the right mid to lower lung. Mildly prominent pulmonary vasculature. Left lung and pleural space grossly clear. No pneumothorax. Osteopenia. Degenerative changes of the spine. Upper abdomen normal. IMPRESSION: 1. Increased size of the now moderate right pleural effusion with extensive right basilar atelectasis. 2. Cardiomegaly with mild volume overload. Electronically signed by: Hayes Mcfarland M.D. 08/28/2018 7:39 AM Dictated: 08/28/18 0738 Transcribed: 08/28/18 0738 Hospital Course (1) CHF (congestive heart failure): (2) Pleural effusion: (3) Hypoxia: Present on admission with LE extremity and SOB CXR on admission showed interval development of mild pulmonary edema and a small right pleural effusion. Repeat CXR showed Increased size of the now moderate right pleural effusion. Cardiomegaly with mild volume overload. Cardiology on board Case discussed with cardiology Dr. Navarro recommended to discharge on Toprol 100mg daily and spironolactone 25mg Also will discharge on lasix 20mg daily and prn additional dose 20mg if weight increase by 2lbs Diltiazem was discontinue due LE edema by cardiology Clinically improves Continue oxygen supplement for now Monitor BMP while on diuretic Continue daily weight check 4. Left hand pain s/p fall last month Hand xray showed healing fifth metacarpal fracture. Had seen by ortho and no surgical intervention needed No need for follow-up with orthopedics in the office as long as her hand continues to slowly improve as per ortho Dr. Goodwin 5. Hypertension BP stable Continue Toprol 100mg and spironolactone 25mg and lasix 20mg Monitor BP 6. Dyslipidemia Continue statin 7. Atrial fibrillation HR has been running btw 90's to 110's Discussed case with cardiology and felt pt probably dehydrate Recommended to give 250ml IVF before discharge home today Discontinued diltiazem as per cardio on discharge Continue Toprol 100mg daily Not a candidate for anticoagulation due to history of ICH and frequent falls Follow up with cardiology 8. Depression Denies any suicidal thought Continue Zoloft 50mg daily Psych on board Would benefit from increased socialization 9. Weakness Continue PT/OT Fall precaution discontinue oxycodone due to lethargy Continue Tramadol for the pain baclofen decrease from TID to BID CODE STATUS DNR DVT px on heparin Disposition Discharge to [facility] today Total Time Total Time Spent Total Time Spent (In Minutes): 35 minutes Total Time Includes: Examination of the Patient, Discharge Planning, Medication Reconciliation, Communication With Other Providers and Other Discharge Plan Discharge Items Patient Disposition: Transfer [facility] Fac Reason For Visit: ILLNESS Discharge Diagnosis: 1) CHF (congestive heart failure): (2) Pleural effusion: (3) Hypoxia: (4) Left hand pain s/p fall last month (5) Atrial fibrillation (6) Hypertension (7) Depression Discharge Goals: Decrease discomfort, Improve disease control, Improve function and Increase independence Activity: Resume your previous activity Non-emergency contact: Primary Care Provider and Director Internal Control Call non-emergency contact if: you have any medication questions, your pain is worsening and your temperature is above 101 Follow-up/Referrals: Rohit Cardenas [Primary Care Provider] - Diet: Heart Healthy Addtl Provider Instructions: Follow up with your primary care provider Follow up with cardiology dr. Navarro between 2 to 3 weeks Continue physical and occupational therapy Fall precaution Check BMP within 1 week to monitor electrolytes and kidney function Daily weight check (give additional lasix 20 mg as needed for lower extremity edema or weight gain of more than 2 pounds in a 24-hour period) Hold tramadol and baclofen if patient becomes drowsy and lethargy Prescriptions: New metoprolol succinate 50 mg Tablet Extended Release 24 Hr 100 mg PO QAM 30 Days Qty: 60 RF: 0 spironolactone 25 mg Tablet 25 mg PO DAILY 30 Days Qty: 30 RF: 0 potassium chloride 10 mEq capsule, extended release 10 meq PO DAILY Qty: 30 RF: 0 levalbuterol HCl 1.25 mg/3 mL Solution For Nebulization 1.25 mg NEB Q6H PRN (Reason: shortness of breath or wheezing) Qty: 90 RF: 0 Continued pravastatin 40 mg Tablet 40 mg PO HS RF: 0 acetaminophen [Tylenol Extra Strength] 500 mg Tablet 500 mg PO Q4H PRN (Reason: mild pain/fever) RF: 0 guaifenesin [Siltussin SA] 100 mg/5 mL Liquid 10 ml PO QID PRN (Reason: Congestion) RF: 0 cholecalciferol (vitamin D3) [Vitamin D3] 2,000 unit Capsule 2,000 unit PO QAM RF: 0 polyethylene glycol 3350 [Miralax] 17 gram Powder In Packet 17 g PO QAM RF: 0 nystatin 100,000 unit/gram Powder 1 applic TOPICAL BID RF: 0 acetaminophen 500 mg Tablet 500 mg PO TID RF: 0 Changed tramadol 50 mg tablet 25 - 50 mg PO Q8H PRN (Reason: Pain) Qty: 10 RF: 0 baclofen 10 mg tablet 5 mg PO BID Qty: 0 RF: 0 sertraline 25 mg Tablet 50 mg PO QAM 30 Days Qty: 60 RF: 0 furosemide 20 mg tablet 20 mg PO QAM 30 Days Qty: 30 RF: 0 Discontinued diltiazem HCl 240 mg Capsule,Extended Release 24 Hr 240 mg PO QAM RF: 0 metoprolol succinate [Toprol XL] 25 mg Tablet Extended Release 24 Hr 75 mg PO QAM RF: 0 potassium chloride 20 mEq tablet,ER particles/crystals 20 meq PO QAM RF: 0 oxycodone 5 mg tablet 5 mg PO QAM RF: 0 Stand-Alone Forms: [facility] Discharge Orders: Discharge Order (Routine); Ordered 09/01/18 Ordered By: Aamir Shetty Skilled Items Patient informed of condition?: Yes DNR: Yes Discharge Level of Care: Skilled Communicable Disease: No Discharge Prognosis: Stable Admission Data Admit Date/Time: 08/24/18 12:47 Attending Provider: Aamir Shetty Admit Provider: Gary Huerta Primary Care Provider: Rohit Cardenas Other Providers: Gary Huerta ; Carlos Navarro ; Aurelio Goodwin ; Tavo Barajas ; Park Miranda Service: Medical Other Interventions: Discharge Summary Assessment (RN) Last Done: 09/01/18 08:00 DC Date/Time DO NOT enter until pt leaves facility: 09/01/18 14:44
== END 2018-09-01 14:44 | DRG 293 ==
LOC: EDUNIT# 10:44 → EDBD 10:44 → ED 10:44 → SUATTDRO 12:47 → 2S 12:47 → 4W 08-26 12:40